=== PATIENT | male | born 1950 | race Caucasian/White ===

== ENCOUNTER 2016-12-31 11:18 | Inpatient (IN) | payer MEDICARE, OTHER ==
[~2016-12-31] VITALS: Ht 175.3 cm; Wt 116.5 kg
[2016-12-31] VITALS (11 sets, daily range): BP systolic 88–190; BP diastolic 52–77; PULSE 98–132; RESP 20–30; TEMP 98.5–100.6; O2SAT 63–99
[~2016-12-31 11:18] MED LIST: ABIL2TAB2 PO; AMLO2.5T PO; BUDE.5I NEB; CEFT500T3 PO; COLA100C3 PO; FURO1TAB62 PO; LEVO50TA4 PO; MAPA325T PO; SIME1CHW11 PO; SPIRCAP INH; VENTAER INH; VITA1000 PO; ZANT150T2 PO
--- NOTE | 2016-12-31 11:42 | PD ---
HPI Chief Complaint: Altered Mental Status Time Seen by Provider: 11:36 Travel History International Travel<30 days: No Contact w/Intl Traveler<30days: No Traveled to known affect area: No History of Present Illness HPI Patient was sent from [facility] with reported some altered over the last 3 days per EMS. Patient has a history of pneumonia, COPD, hyperkalemia, GERD, edema, schizoaffective disorder, legally blind, hypertension, hypothyroidism, depression, coronary artery disease, sleep apnea, colostomy, constipation, vitamin D deficiency, TB, Parkinson's, and dementia. Patient denies any complaints or concerns. States that the senior care sent him here for evaluation. Patient denies any chest pain, shortness of breath, nausea, vomiting, abdominal pain, back pain, headache, or numbness or tingling anywhere. Patient states that he has been coughing daily and does this regularly and is not anything out of the ordinary for him. Patient states he just sat out in the hot sun for too long. PFSH Past Medical History Anxiety: Yes Depression: Yes Cardiovascular Problems: Yes (bp) COPD: Yes Developmental Delay: Yes (MENTALLY CHALLENGED) Diminished Hearing: No GERD: Yes Hypertension: Yes Implanted Vascular Access Dvce: Yes Neurologic: Yes (DEVELOPMENTALLY DELAYED) Respiratory: No Seizures: Yes Thyroid Disease: Yes Past Surgical History Eye Surgery: Yes Other Surgery: Yes Social History Alcohol Use: No Tobacco Use: No Substance Use: No Allergies-Medications (Allergen,Severity, Reaction): Coded Allergies: No Known Allergies (Verified , 12/31/16) Reported Meds & Prescriptions Reported Meds & Active Scripts Active Reported Tums (Calcium Carbonate (Antacid)) 500 Mg Chew 1,000 Mg CHEW BID WITH MEALS Docusate Sodium 100 Mg Cap 100 Mg PO HS Furosemide 20 Mg Tab 20 Mg PO BID Ondansetron (Ondansetron HCl) 4 Mg Tab 4 Mg PO Q6HR PRN Vitamin D-1000 (Cholecalciferol) 1,000 Unit Tab 1,000 Units PO DAILY Ventolin Hfa 18 GM Inh (Albuterol Sulfate) 90 Mcg/Act Aer 2 Puff INH Q4H PRN Mapap (Acetaminophen) 325 Mg Tab 650 Mg PO Q4HR PRN Levothyroxine (Levothyroxine Sodium) 50 Mcg Tab 50 Mcg PO DAILY Gas Relief Maximum Streng (Simethicone) 125 Mg Chw 125 Mg PO Q8HR PRN Amlodipine (Amlodipine Besylate) 2.5 Mg Tab 2.5 Mg PO DAILY Abilify (Aripiprazole) 2 Mg Tab 2 Mg PO HS Review of Systems Except as stated in HPI: all other systems reviewed are Neg Physical Exam Narrative GENERAL: Well-developed, overly nourished, in no acute distress, and non-ill appearing. SKIN: Focused skin assessment warm and dry. HEAD: Atraumatic. Normocephalic. ENT: No nasal bleeding or discharge. Mucous membranes pink and moist. NECK: Trachea midline. Supple. No nuclear rigidity. CARDIOVASCULAR: Regular rate and rhythm. No murmur appreciated. RESPIRATORY: No accessory muscle use. No respiratory distress. Decreased breath sounds throughout. GASTROINTESTINAL: Abdomen soft, non-tender, nondistended. Colostomy bag noted. Abdominal hernia noted. No pulsatile mass. MUSCULOSKELETAL: No obvious deformities. No clubbing. No cyanosis. Trace edema bilateral lower extremities. Full range of motion bilateral upper extremities. NEUROLOGICAL: Awake and alert. No obvious cranial nerve deficits. Motor grossly within normal limits. Normal speech. PSYCHIATRIC: Appropriate mood and affect; insight and judgment normal. Data Data Last Documented VS Vital Signs Date Time Temp Pulse Resp B/P Pulse Ox O2 Delivery O2 Flow Rate FiO2 12/31/16 11:25 123 22 94 Nasal Cannula 3 12/31/16 11:23 99.4 140/72 Orders Electrocardiogram (12/31/16 11:32) Basic Metabolic Panel (Bmp) (12/31/16 11:32) Complete Blood Count With Diff (12/31/16 11:32) Lactic Acid Sepsis Protocol (12/31/16 11:32) Urinalysis - C+S If Indicated (12/31/16 11:32) Blood Culture (12/31/16 11:32) Chest, Single Ap (12/31/16 11:32) Sodium Chloride 0.9% Flush (Ns Flush) (12/31/16 11:45) Ceftriaxone Inj (Rocephin Inj) (12/31/16 11:45) Azithromycin Inj (Zithromax Inj) (12/31/16 11:45) B-Type Natriuretic Peptide (12/31/16 11:32) Urine Culture (12/31/16 11:47) Sodium Chlorid 0.9% 500 Ml Inj (Ns 500 M (12/31/16 13:00) Admit Order (Ed Use Only) (12/31/16 13:21) Labs Laboratory Tests Test 12/31/16 12/31/16 11:45 11:47 White Blood Count 49.4 TH/MM3 Red Blood Count 4.77 MIL/MM3 Hemoglobin 15.1 GM/DL Hematocrit 46.3 % Mean Corpuscular Volume 97.0 FL Mean Corpuscular Hemoglobin 31.7 PG Mean Corpuscular Hemoglobin 32.6 % Concent Red Cell Distribution Width 18.0 % Platelet Count 243 TH/MM3 Mean Platelet Volume 9.6 FL Neutrophils (%) (Auto) 89.4 % Lymphocytes (%) (Auto) 2.3 % Monocytes (%) (Auto) 8.0 % Eosinophils (%) (Auto) 0.1 % Basophils (%) (Auto) 0.2 % Neutrophils # (Auto) 44.2 TH/MM3 Lymphocytes # (Auto) 1.1 TH/MM3 Monocytes # (Auto) 3.9 TH/MM3 Eosinophils # (Auto) 0.0 TH/MM3 Basophils # (Auto) 0.1 TH/MM3 CBC Comment AUTO DIFF Differential Total Cells 100 Counted Neutrophils % (Manual) 83 % Band Neutrophils % 6 % Lymphocytes % 2 % Monocytes % 9 % Neutrophils # (Manual) 44.0 TH/MM3 Nucleated Red Blood Cells 1 /100 WBC Differential Comment FINAL DIFF MANUAL Platelet Estimate NORMAL Platelet Morphology Comment NORMAL Red Cell Morphology Comment NORMAL Sodium Level 136 MEQ/L Potassium Level 4.2 MEQ/L Chloride Level 96 MEQ/L Carbon Dioxide Level 36.3 MEQ/L Anion Gap 4 MEQ/L Blood Urea Nitrogen 16 MG/DL Creatinine 1.39 MG/DL Estimat Glomerular Filtration 51 ML/MIN Rate Random Glucose 213 MG/DL Lactic Acid Level 1.3 mmol/L Calcium Level 8.8 MG/DL B-Type Natriuretic Peptide 50 PG/ML Urine Color YELLOW Urine Turbidity HAZY Urine pH 6.0 Urine Specific [place] 1.025 Urine Protein 300 mg/dL Urine Glucose (UA) 70 mg/dL Urine Ketones NEG mg/dL Urine Occult Blood MOD Urine Nitrite NEG Urine Bilirubin NEG Urine Urobilinogen LESS THAN 2.0 MG/DL Urine Leukocyte Esterase LARGE Urine RBC 22 /hpf Urine WBC 150 /hpf Urine Squamous Epithelial <1 /hpf Cells Urine Transitional Epithelial 1 /hpf Cells Urine Bacteria MANY /hpf Urine Hyaline Casts 4 /lpf Urine Mucus FEW /lpf Microscopic Urinalysis Comment CATH-CULTURE IND MDM Medical Decision Making Medical Screen Exam Complete: Yes Emergency Medical Condition: Yes Interpretation(s) Chest x-ray read by radiologist shows: Left lateral base mild atelectasis or consolidation. EKG reviewed by Dr. Aponte shows sinus tachycardia with ventricular rate of 116. No STEMI. Differential Diagnosis Pneumonia, UTI, anemia, electrolyte abnormality, sepsis, service, other Narrative Course 1225 patient reassessed states he is feeling a little better after receiving treatment here. Patient was seen and examined. Initial laboratory and radiology studies were obtained and reviewed. Patient is given IV fluids, IV antibiotics and reports feeling improved. Discussed patient with Dr. Aponte, who saw and evaluated the patient and is in agreement with plan of care and disposition. Discussed all findings and plan of care with patient who is agreeable for admission. All questions were answered. Patient remained stable throughout ED course. Sepsis Criteria SIRS Criteria (2 or more): Heart rate over 90, WBC > 77508, < 4000 or > 10% bands Sepsis Criteria (SIRS+source): Infect source susp/known Criteria Outcome: Meets sepsis criteria Physician Communication Physician Communication [id number] Doe, resident central communications specialist for Dr. Casanova, who is agreeable to admit the patient. Diagnosis Primary Impression: Sepsis Qualified Code: A41.9 - Sepsis, due to unspecified organism Additional Impressions: Pneumonia Qualified Code: J18.1 - Pneumonia of left lower lobe due to infectious organism UTI (urinary tract infection) Qualified Code: N39.0 - Urinary tract infection without hematuria, site unspecified Admitting Information Admitting Physician Requests: Admit Condition: Stable Luciano Chong December 31, 2016 11:42
[2016-12-31] MEDS ORDERED: SODIUM CHLORIDE 0.9% FLUSH 10 ML FLUSH IVF PRN (11:45)
[2016-12-31] MEDS ORDERED: cefTRIAXone INJ 1,000 MG in SODIUM CHLORIDE 0.9% INJ 100 ML IV ONE (11:45)
[2016-12-31] MEDS ORDERED: AZITHROMYCIN INJ 500 MG in SODIUM CHLOR 0.9% 250 ML INJ 250 ML IV ONE (11:45)
[2016-12-31 12:10] LABS: AUTOMATED NEUTROPHIL # 44.2 TH/MM3 (1.8-7.7); BASOPHIL # 0.1 TH/MM3 (0-0.2); BASOPHIL % 0.2 % (0.0-2.0); EOSINOPHIL % 0.1 % (0.0-4.0); HEMATOCRIT 46.3 % (39.0-51.0); LYMPH % 2.3 % (9.0-44.0); LYMPHOCYTE # 1.1 TH/MM3 (1.0-4.8); MEAN CORPUSCULAR HEMOGLOBIN 31.7 PG (27.0-34.0); MEAN CORPUSCULAR HGB CONC 32.6 % (32.0-36.0); NEUT % 89.4 % (16.0-70.0); PLATELET COUNT 243 TH/MM3 (150-450); RED BLOOD COUNT 4.77 MIL/MM3 (4.50-5.90); WHITE BLOOD COUNT 49.4 TH/MM3 (4.0-11.0)
[2016-12-31 12:14] LABS: HEMO FLAGS AUTO DIFF
[2016-12-31 12:18] LABS: BACTERIA, URINE MANY /hpf; BLOOD, URINE MOD (NEG); GLUCOSE,URINE 70 mg/dL (NEG); HYALINE CAST, URINE 4 /lpf (RARE); KETONE, URINE NEG (NEG); MUCUS URINE FEW /lpf (OCC); NITRITE,URINE NEG (NEG); SQUAMOUS EPITHELIAL CELL URINE <1 /hpf (0-5); TRANSITIONAL EPI CELLS, URINE 1 /hpf; URINE COLOR YELLOW (YELLW/STRAW)
[2016-12-31 12:20] LABS: COMMENT (UR) CATH-CULTURE IND; CULTURE IF INDICATED CATH CULTURE IND
[2016-12-31 12:27] LABS: BICARBONATE 36.3 MEQ/L (21.0-32.0); POTASSIUM 4.2 MEQ/L (3.5-5.1)
--- NOTE | 2016-12-31 12:36 | RADRPT ---
EXAM DATE/TIME: 12/31/2016 11:44 [facility] COMPARISON: CHEST SINGLE AP, June 03, 2016, 15:08. INDICATIONS : Cough. MEDICAL HISTORY : Hypertension. SURGICAL HISTORY : None. ENCOUNTER: Initial ACUITY: 1 day PAIN SCORE: Non-responsive. LOCATION: Bilateral chest FINDINGS: The heart size is within normal limits for an AP portable film. There is mild increased density at th e left lateral base. The right lung is clear. CONCLUSION: Left lateral base mild atelectasis or consolidation. Esteban Fleming MD on December 31, 2016 at 12:34 Board Certified Radiologist. This report was verified electronically.
[2016-12-31 12:49] LABS: BANDS 6 % (0-6); CORRECTED NUCLEATED RBC 1 /100 WBC (0-0); PLATELET ESTIMATE SMEAR NORMAL (NORMAL); PLATELET MORPHOLOGY NORMAL (NORMAL); POLYS (SEG NEUTROPHILS) 83 % (16-70); SCAN/DIFF FINAL DIFF MANUAL; WBC DIFF SAMPLE 100
[2016-12-31] MEDS ORDERED: ONDA1TAB16 PO (12:55)
[2016-12-31] MEDS ORDERED: FURO20TA PO (12:55)
[2016-12-31] MEDS ORDERED: DOCU100C PO (12:58)
[2016-12-31] MEDS ORDERED: SODIUM CHLORID 0.9% 500 ML INJ 500 ML IV ONE (13:00)
[2016-12-31] MEDS ORDERED: TUMS500C CHEW (13:02)
--- NOTE | 2016-12-31 13:24 | PD ---
Physical Exam Narrative I, Dr. Aponte, have reviewed the advance practice practitioner's documentation and am in agreement, met with the patient face to face, made the diagnosis, and the medical decision making was done by me. *My assessment and Findings: Pneumonia vs. dehydration vs. electrolyte abnormality 66yo M with multiple PMH here for AMS from correction. Pt is AAOx3, blind but follows commands. Pt is complaining of cough and is tachycardic. Labs reviewed, marked leukocytosis at 49.4 compared to 17.6 on 06/2016. Lactic acid 1.3. BNP 50. Creatinine mildly increased from baseline. Glucose elevated at 213. UA showed large leukocyte WBC 150. CXR showed left lateral base mild atelectasis or consolidation. Pt given NS IVF, ceftriaxone and azithromycin. This will cover CAP and UTI. Pt admitted to resident service. Data Data Last Documented VS Vital Signs Date Time Temp Pulse Resp B/P Pulse Ox O2 Delivery O2 Flow Rate FiO2 12/31/16 11:25 123 22 94 Nasal Cannula 3 12/31/16 11:23 99.4 140/72 Orders Electrocardiogram (12/31/16 11:32) Basic Metabolic Panel (Bmp) (12/31/16 11:32) Complete Blood Count With Diff (12/31/16 11:32) Lactic Acid Sepsis Protocol (12/31/16 11:32) Urinalysis - C+S If Indicated (12/31/16 11:32) Blood Culture (12/31/16 11:32) Chest, Single Ap (12/31/16 11:32) Sodium Chloride 0.9% Flush (Ns Flush) (12/31/16 11:45) Ceftriaxone Inj (Rocephin Inj) (12/31/16 11:45) Azithromycin Inj (Zithromax Inj) (12/31/16 11:45) B-Type Natriuretic Peptide (12/31/16 11:32) Urine Culture (12/31/16 11:47) Sodium Chlorid 0.9% 500 Ml Inj (Ns 500 M (12/31/16 13:00) Admit Order (Ed Use Only) (12/31/16 13:21) Labs Laboratory Tests Test 12/31/16 12/31/16 11:45 11:47 White Blood Count 49.4 TH/MM3 Red Blood Count 4.77 MIL/MM3 Hemoglobin 15.1 GM/DL Hematocrit 46.3 % Mean Corpuscular Volume 97.0 FL Mean Corpuscular Hemoglobin 31.7 PG Mean Corpuscular Hemoglobin 32.6 % Concent Red Cell Distribution Width 18.0 % Platelet Count 243 TH/MM3 Mean Platelet Volume 9.6 FL Neutrophils (%) (Auto) 89.4 % Lymphocytes (%) (Auto) 2.3 % Monocytes (%) (Auto) 8.0 % Eosinophils (%) (Auto) 0.1 % Basophils (%) (Auto) 0.2 % Neutrophils # (Auto) 44.2 TH/MM3 Lymphocytes # (Auto) 1.1 TH/MM3 Monocytes # (Auto) 3.9 TH/MM3 Eosinophils # (Auto) 0.0 TH/MM3 Basophils # (Auto) 0.1 TH/MM3 CBC Comment AUTO DIFF Differential Total Cells 100 Counted Neutrophils % (Manual) 83 % Band Neutrophils % 6 % Lymphocytes % 2 % Monocytes % 9 % Neutrophils # (Manual) 44.0 TH/MM3 Nucleated Red Blood Cells 1 /100 WBC Differential Comment FINAL DIFF MANUAL Platelet Estimate NORMAL Platelet Morphology Comment NORMAL Red Cell Morphology Comment NORMAL Sodium Level 136 MEQ/L Potassium Level 4.2 MEQ/L Chloride Level 96 MEQ/L Carbon Dioxide Level 36.3 MEQ/L Anion Gap 4 MEQ/L Blood Urea Nitrogen 16 MG/DL Creatinine 1.39 MG/DL Estimat Glomerular Filtration 51 ML/MIN Rate Random Glucose 213 MG/DL Lactic Acid Level 1.3 mmol/L Calcium Level 8.8 MG/DL B-Type Natriuretic Peptide 50 PG/ML Urine Color YELLOW Urine Turbidity HAZY Urine pH 6.0 Urine Specific [place] 1.025 Urine Protein 300 mg/dL Urine Glucose (UA) 70 mg/dL Urine Ketones NEG mg/dL Urine Occult Blood MOD Urine Nitrite NEG Urine Bilirubin NEG Urine Urobilinogen LESS THAN 2.0 MG/DL Urine Leukocyte Esterase LARGE Urine RBC 22 /hpf Urine WBC 150 /hpf Urine Squamous Epithelial <1 /hpf Cells Urine Transitional Epithelial 1 /hpf Cells Urine Bacteria MANY /hpf Urine Hyaline Casts 4 /lpf Urine Mucus FEW /lpf Microscopic Urinalysis Comment CATH-CULTURE IND MDM Supervised Visit with [place]: Yes Interpretation(s) EKG: Sinus tachycardia at 116bpm. No ST segment elevation or depression. Critical Care Narrative Aggregate critical care time was 35 minutes. Time to perform other separately billable procedures was not included in the critical care time. My time did not include minutes spent treating any other patients simultaneously or on activities that did not directly contribute to the patient's treatment. The services I provided to this patient were to treat and/or prevent clinically significant deterioration that could result in: cardiovascular collapse or . I provided critical care services requiring my management, as noted below: Chart data review, documentation time, medication orders and management, vital sign assessments/reviewing monitor data, ordering and reviewing lab tests, ordering and interpreting/reviewing x-rays and diagnostic studies, care of the patient and discussion of the patient with the admitting physicians. Diagnosis Primary Impression: Sepsis Qualified Code: A41.9 - Sepsis, due to unspecified organism Admitting Information Admitting Physician Requests: Jennifer Jimenez DO December 31, 2016 13:24
--- NOTE | 2016-12-31 13:31 | HHI.HP ---
HPI Service Family Medicine Primary Care Physician Unknown Admission Diagnosis sepsis, pneumonia, UTI Diagnoses: International Travel<30 Days: No Contact w/Intl Traveler<30days: No Known Affected Area: No History of Present Illness Patient is a 66-year-old male with a past medical history significant for pneumonia, COPD, hyperkalemia, GERD, edema, schizoaffective disorder, legally blind, hypertension, hypothyroidism, depression, coronary artery disease , sleep apnea, colostomy, constipation, vitamin D deficiency, TB, Parkinson's, and dementia that presents to the [facility] from his [facility] with a chief complaint of altered mental status times the last 3 days. She and states that he has not been feeling well for the last 5 days, he has felt dizzy, lightheaded , with nausea and vomiting. (Elvie Doe MD R1) Review of Systems Constitutional: COMPLAINS OF: Fever, Chills, Dizziness, Change in appetite, Night Sweats Ears, nose, mouth, throat: COMPLAINS OF: Nasal discharge, Running Nose, Sinus Pain Respiratory: COMPLAINS OF: Cough (non-productive), DENIES: Sputum production, Shortness of breath Cardiovascular: COMPLAINS OF: Palpitations, DENIES: Chest pain Gastrointestinal: COMPLAINS OF: Abdominal pain, DENIES: Diarrhea, Nausea, Vomiting Genitourinary: DENIES: Urinary frequency (less frequent), Dysuria Musculoskeletal: DENIES: Muscle aches, Back pain Integumentary: DENIES: Pruritus, Rash Neurologic: DENIES: Headache, Paresthesias (Elvie Doe MD R1) Past Family Social History Past Medical History COPD, hyperkalemia, GERD, edema, schizoaffective disorder, legally blind, hypertension, hypothyroidism, depression, coronary artery disease, sleep apnea, colostomy, constipation, vitamin D deficiency, TB, Parkinson's, and dementia. Past Surgical History Bilateral eye surgery Colostomy Reported Medications Reported Meds & Active Scripts Active Reported Tums (Calcium Carbonate (Antacid)) 500 Mg Chew 1,000 Mg CHEW BID WITH MEALS Docusate Sodium 100 Mg Cap 100 Mg PO HS Furosemide 20 Mg Tab 20 Mg PO BID Ondansetron (Ondansetron HCl) 4 Mg Tab 4 Mg PO Q6HR PRN Vitamin D-1000 (Cholecalciferol) 1,000 Unit Tab 1,000 Units PO DAILY Ventolin Hfa 18 GM Inh (Albuterol Sulfate) 90 Mcg/Act Aer 2 Puff INH Q4H PRN Mapap (Acetaminophen) 325 Mg Tab 650 Mg PO Q4HR PRN Levothyroxine (Levothyroxine Sodium) 50 Mcg Tab 50 Mcg PO DAILY Gas Relief Maximum Streng (Simethicone) 125 Mg Chw 125 Mg PO Q8HR PRN Amlodipine (Amlodipine Besylate) 2.5 Mg Tab 2.5 Mg PO DAILY Abilify (Aripiprazole) 2 Mg Tab 2 Mg PO HS (Eko,Elvie Ramirez MD R1) Allergies: Coded Allergies: No Known Allergies (Verified , 12/31/16) Family History Noncontributory Social History Denies smoking, alcohol, drug use including marijuana use (Eko,Elvie Ramirez MD R1) Physical Exam Vital Signs Vital Signs Date Time Temp Pulse Resp B/P Pulse Ox O2 Delivery O2 Flow Rate FiO2 12/31/16 11:25 123 22 94 Nasal Cannula 3 12/31/16 11:23 99.4 132 22 140/72 93 Physical Exam GENERAL: This is a well-developed patient, obese patient, in no acute respiratory distress but appears tired, legally blind SKIN: No rashes, ecchymoses or lesions. Cool and dry. HEAD: Atraumatic. Normocephalic. No temporal or scalp tenderness. EYES: Pupils equal round and reactive. Extraocular motions intact. No scleral icterus. No injection or drainage. Legally blind, eye glasses in place ENT: Nose without bleeding, purulent drainage or septal hematoma. Throat without erythema, tonsillar hypertrophy or exudate. Dry mucous membranes. Uvula midline. Airway patent. NECK: Trachea midline. No JVD or lymphadenopathy. Supple, nontender, no meningeal signs. CARDIOVASCULAR: Tachycardic rate and rhythm without murmurs, gallops, or rubs. RESPIRATORY: Difficult to auscultate, but no wheezing or crackles identified GASTROINTESTINAL: Abdomen obese, soft, non-tender, nondistended. No hepato- splenomegaly, or palpable masses. No guarding. MUSCULOSKELETAL: Extremities without clubbing, cyanosis, or edema. 1+ pitting edema of bilateral lower extremities. No calf tenderness. NEUROLOGICAL: Awake and alert during exam, but drifts off to sleep intermittently. Motor and sensory grossly within normal limits. Patient unable to lift upper or lower extremities. Speech is difficult to understand. Laboratory Laboratory Tests Test 12/31/16 12/31/16 11:45 11:47 White Blood Count 49.4 Red Blood Count 4.77 Hemoglobin 15.1 Hematocrit 46.3 Mean Corpuscular Volume 97.0 Mean Corpuscular Hemoglobin 31.7 Mean Corpuscular Hemoglobin 32.6 Concent Red Cell Distribution Width 18.0 Platelet Count 243 Mean Platelet Volume 9.6 Neutrophils (%) (Auto) 89.4 Lymphocytes (%) (Auto) 2.3 Monocytes (%) (Auto) 8.0 Eosinophils (%) (Auto) 0.1 Basophils (%) (Auto) 0.2 Neutrophils # (Auto) 44.2 Lymphocytes # (Auto) 1.1 Monocytes # (Auto) 3.9 Eosinophils # (Auto) 0.0 Basophils # (Auto) 0.1 CBC Comment AUTO DIFF Differential Total Cells 100 Counted Neutrophils % (Manual) 83 Band Neutrophils % 6 Lymphocytes % 2 Monocytes % 9 Neutrophils # (Manual) 44.0 Nucleated Red Blood Cells 1 Differential Comment FINAL DIFF MANUAL Platelet Estimate NORMAL Platelet Morphology Comment NORMAL Red Cell Morphology Comment NORMAL Sodium Level 136 Potassium Level 4.2 Chloride Level 96 Carbon Dioxide Level 36.3 Anion Gap 4 Blood Urea Nitrogen 16 Creatinine 1.39 Estimat Glomerular Filtration 51 Rate Random Glucose 213 Lactic Acid Level 1.3 Calcium Level 8.8 B-Type Natriuretic Peptide 50 Urine Color YELLOW Urine Turbidity HAZY Urine pH 6.0 Urine Specific [place] 1.025 Urine Protein 300 Urine Glucose (UA) 70 Urine Ketones NEG Urine Occult Blood MOD Urine Nitrite NEG Urine Bilirubin NEG Urine Urobilinogen LESS THAN 2.0 Urine Leukocyte Esterase LARGE Urine RBC 22 Urine WBC 150 Urine Squamous Epithelial <1 Cells Urine Transitional Epithelial 1 Cells Urine Bacteria MANY Urine Hyaline Casts 4 Urine Mucus FEW Microscopic Urinalysis Comment CATH-CULTURE IND Date/Time Procedure Status Source Growth 12/31/16 11:50 Aerobic Blood Culture Received Blood Peripheral Pending 12/31/16 11:50 Anaerobic Blood Culture Received Blood Peripheral Pending 12/31/16 11:47 Urine Culture Received Urine Catheterized Urine Pending (EkoElvie MD R1) Result Diagram: 12/31/16 1145 12/31/16 1145 Imaging Last Impressions Chest X-Ray 12/31/16 1132 Signed Impressions: Service Date/Time: Saturday, December 31, 2016 11:44 - CONCLUSION: Left lateral base mild atelectasis or consolidation. Esteban Fleming MD (Elvie Doe MD R1) Assessment and Plan Assessment and Plan 66-year-old male with multiple medical problems presents with altered mental status with signs and symptoms concerning for severe sepsis secondary to pneumonia and UTI. Patient will be admitted for treatment with IV antibiotics and fluids. Code Status Full code Discussed Condition With Discussed with Dr. Zamarripa, PGY 3 (Elvie Doe MD R1) Attending Attestation THIS CASE WAS DISCUSSED WITH THE RESIDENT PHYSICIANS. I HAVE REVIEWED THE RECORD AND AGREE WITH THE ABOVE NOTE AND PLAN OF CARE WAS DISCUSSED. I HAVE AUTHORIZED THE ORDER FOR ADMISSION TO AN IN-PATIENT STATUS. (Brody Casanova MD) Problem List: (1) Severe sepsis Status: Acute Plan: Initial vitals: Temperature 99.4F, pulse 132, BP 140/72, RR 22, 93% saturation Temperature increased to 100.6F Patient met severe sepsis criteria with elevated temperature, elevated respiratory rate and WBC of 49.4 Received 500 mL bolus in the ED, Rocephin 1 g IV, azithromycin 500 mg IV Patient later received 1000 mL bolus in the ED for blood pressure of 88/52 with good response UA significant for large leukocyte esterase, 22 RBC, 150 WBC, many bacteria in catheterized specimen - will order renal ultrasound CXR notable for left lateral base mild atelectasis or consolidation EKG showed sinus tachycardia with rates of 116. No overt signs of ACS by my interpretation Troponin ordered 1 was less than 0.02, CK 40, BNP 15 Urine culture pending Blood cultures pending Sputum Gram stain and culture pending Legionella urinary antigen pending Pneumococcal urinary antigen pending 2-D echo pending Zosyn 3.375 IV every 6 hours Levaquin 750 mg IV every 24 hours Vancomycin 1750 mg IV every 24 hours Solu-Medrol 40 mg IV every 12 hours DuoNeb every 6 hours scheduled Albuterol nebulizer every 2 hours when necessary shortness of breath Zofran 4 mg IV every 6 hours Tylenol 650 mg by mouth every 4 hours when necessary temperature greater than 101F NS @ 100 mls/hr IV, lower than maintenance due to concern for heart failure (2) UTI (urinary tract infection) Status: Acute Plan: See plan above for severe sepsis (3) Pneumonia Status: Acute Plan: See plan above for severe sepsis (4) DANE (acute kidney injury) Status: Acute Plan: -Creatinine elevated at 1.39 in the ED -Baseline of 1.08 in 2016 -Continue normal saline at 100 mLs per hour -Will monitor in the a.m. (5) Chronic Medical Problems Status: Chronic Plan: COPD: Hold albuterol inhaler, continue albuterol and DuoNeb nebulizers Hypertension: Hold amlodipine 2.5 mg by mouth daily due to low/normotensive blood pressures Hyperlipidemia: Continue Atorvastin, Pravastatin Hypothyroidism: Continue Levothyroxine 50 g by mouth daily Schizoaffective disorder: Hold Abilify 2 mg daily Edema: Hold furosemide 20 mg by mouth twice a day due to low/normotensive blood pressures (6) FEN/DVT PPX/GI PPX/Nursing Orders Status: Acute Plan: Fluids: NS @ 100 mls/hr IV Electrolytes: Will monitor and replace as needed Nutrition: NPO due to altered mental status DVT Prophylaxis:Heparin subcutaneous Q8h, bilateral SCDs GI Prophylaxis: Protonix 40mg IV daily -Vitals Q4h -Monitor I's and O's -Fall precautions -Neurochecks -cardiac monitor with telemetry with continuous vital signs -Supplemental oxygen -Activity bed rest Disposition: Uncertain at this time. Pending clinical improvement (Elvie Doe MD R1) Physician Certification 2 Midnight Certification Type: Admission for Inpatient Services Order for Inpatient Services The services are ordered in accordance with Medicare regulations or non- Medicare payer requirements, as applicable. In the case of services not specified as inpatient-only, they are appropriately provided as inpatient services in accordance with the 2-midnight benchmark. Estimated LOS (days): 5 days is the estimated time the patient will need to remain in the hospital, assuming treatment plan goals are met and no additional complications. Post-Hospital Plan: SNF (Elvie Doe MD R1) Problem Qualifiers (1) UTI (urinary tract infection): Qualified Code: N39.0 - Urinary tract infection without hematuria, site unspecified (2) Pneumonia: Qualified Code: J18.1 - Pneumonia of left lower lobe due to infectious organism Elvie Doe MD R1 December 31, 2016 13:31 Brody Casanova MD January 01, 2017 11:17
[2016-12-31] MEDS: SODIUM CHLORIDE 0.9% FLUSH 10 ML FLUSH IV FLUSH SCH ×2 (14:00→22:37)
[2016-12-31] MEDS ORDERED: SODIUM CHLORIDE 0.9% FLUSH 10 ML FLUSH IV FLUSH PRN (14:00)
[2016-12-31] MEDS: SODIUM CHLOR 0.9% 1000 ML INJ 1,000 ML IV SCH (14:17)
[2016-12-31] MEDS ORDERED: SODIUM CHLOR 0.9% 1000 ML INJ 1,000 ML IV ONE (15:00)
[2016-12-31] MEDS ORDERED: Vancomycin Consult Pharmacy 1 EA OTHER SCH (15:00)
[2016-12-31] MEDS ORDERED: HEPARIN SODIUM - SQ 10,000 UNITS/ML VIAL SQ SCH (15:15)
[2016-12-31] MEDS ORDERED: ACETAMINOPHEN 325 MG TAB PO PRN (15:30)
[2016-12-31] MEDS ORDERED: guaiFENesin/DEXTROMETHORPHAN 200 MG/20 MG/10 ML CUP PO PRN (15:30)
[2016-12-31] MEDS ORDERED: ONDANSETRON HCL 4 MG/2 ML VIAL IV PRN (15:30)
[2016-12-31] MEDS ORDERED: VANCOMYCIN INJ 1,000 MG in SODIUM CHLOR 0.9% 250 ML INJ 250 ML IV ONE (16:00)
[2016-12-31] MEDS ORDERED: VANCOMYCIN 1,000 MG/NS 250 ML IV SCH ×2 (16:00)
[2016-12-31] MEDS: RESP: ALBUTEROL 2.5 MG/IPRATROPIUM 0.5 MG NEB (SCH) INH ×2 (16:19→21:21)
[2016-12-31] MEDS: methylPREDNISolone SOD SUCC 40 MG/1 ML VIAL IV SCH (18:05)
[2016-12-31] MEDS: VANCOMYCIN INJ 1,750 MG in SODIUM CHLORID 0.9% 500 ML INJ 500 ML IV SCH (18:06)
[2016-12-31 18:35] LABS: BLOOD GAS BASE EXCESS 4.6 mmol/L (-2-2); BLOOD GAS CARBOXYHEMOGLOBIN 2.6 % (0-4); BLOOD GAS HCO3 31 mmol/L (22-26); BLOOD GAS METHEMOGLOBIN 0.4 % (0-2); BLOOD GAS O2 HGB SATURATION 93 % (90-100); BLOOD GAS OXYGEN CONTENT 18.7 Vol % (12.0-20.0); BLOOD GAS PCO2 74 mmHg (38-42); BLOOD GAS PO2 78 mmHg (61-120); BLOOD GAS TOTAL HGB 14.3 G/DL (12.0-16.0); TEMP CORR TO 98.6
[2016-12-31 18:37] LABS: CRITICAL VALUE YES; DRAW SITE LT RADIAL; FIO2 40 %; NUMBER OF ARTERIAL PUNCTURES 1; OXYGEN DEVICE BIPAP; STAT YES; ULNAR PULSE PRESENT; VENT SETTINGS 5PEEP/7PSV
--- NOTE | 2016-12-31 18:37 | HHI.PR ---
Addendum to Inpatient Note Addendum Reason: Additional Documentation Additional Information Residents were paged about patient's O2 saturation down to 85% on the medicine floor on oxygen 2L by NC. Patient uses BiPAP at night for COPD/obstructive sleep apnea so the zoology technical officer started him on BiPAP. ABG was ordered that showed pH of 7.25, PCO2 of 74 - concern for hypercapnic respiratory failure At this time, the patient was not responding to commands. Floor Waxer was consulted to assist with management. Plan is to transfer patient to the ICU once a bed is available. Elvie Doe MD R1 December 31, 2016 18:37
--- NOTE | 2016-12-31 20:04 | PD.CONS ---
HPI Service Critical Care Medicine Consult Requested By Primary Care Physician Unknown History of Present Illness 66-year-old morbidly obese male with a past medical history significant for recurrent pneumonia, COPD, hyperkalemia, GERD, edema, schizoaffective disorder, legally blind, hypertension, hypothyroidism, depression, coronary artery disease, obstructive sleep apnea, colostomy, constipation, vitamin D deficiency, TB, Parkinson's, and dementia that presents to the [facility] his [facility] with a chief complaint of altered mental status times 4 the last 3 days. Per medical record he has not been feeling well for the last 5 days, he has felt dizzy, lightheaded, with nausea and vomiting. Review of Systems ROS Unable to obtain patient on face mask BiPAP very lethargic Past Family Social History Allergies: Coded Allergies: No Known Allergies (Verified , 12/31/16) Past Medical History COPD, Chronic hyperkalemia, GERD, Chronic edema, Schizoaffective disorder, Legally blind Hypertension Hypothyroidism Depressions coronary artery disease Obstructive sleep apnea Constipation Vitamin D deficiency Parkinson's disease Dementia Past Surgical History Bilateral eye surgery Colostomy Reported Medications Reported Meds & Active Scripts Active Reported Tums (Calcium Carbonate (Antacid)) 500 Mg Chew 1,000 Mg CHEW BID WITH MEALS Docusate Sodium 100 Mg Cap 100 Mg PO HS Furosemide 20 Mg Tab 20 Mg PO BID Ondansetron (Ondansetron HCl) 4 Mg Tab 4 Mg PO Q6HR PRN Vitamin D-1000 (Cholecalciferol) 1,000 Unit Tab 1,000 Units PO DAILY Mapap (Acetaminophen) 325 Mg Tab 650 Mg PO Q4HR PRN Levothyroxine (Levothyroxine Sodium) 50 Mcg Tab 50 Mcg PO DAILY Gas Relief Maximum Streng (Simethicone) 125 Mg Chw 125 Mg PO Q8HR PRN Amlodipine (Amlodipine Besylate) 2.5 Mg Tab 2.5 Mg PO DAILY Abilify (Aripiprazole) 2 Mg Tab 2 Mg PO HS Active Ordered Medications Current Medications Medications (Trade) Dose Ordered Sig/Fang Route PRN Reason Start Time Stop Time Status Last Admin Dose Admin Sodium Chloride (NS 1000 ml Inj) 1,000 ml @ 100 mls/hr Q10H IV 12/31/16 14:00 12/31/16 14:17 Sodium Chloride (NS Flush) 2 ml UNSCH PRN IV FLUSH FLUSH AFTER USING IV ACCESS 12/31/16 14:00 Sodium Chloride 2 ml 2 ml BID IV FLUSH 12/31/16 14:00 Pharmacy Profile Note 0 ml @ 0 mls/hr UNSCH OTHER 12/31/16 15:00 Piperacillin Sod/ Tazobactam Sod 50 ml @ 100 mls/hr Q6H IV 01/01/17 00:00 Levofloxacin/ Dextrose (Levaquin 750 Mg Premix Inj) 150 ml @ 100 mls/hr Q24H IV 01/01/17 12:00 Methylprednisolone Sodium Succinate (SoluMEDROL INJ) 40 mg Q12H IV 12/31/16 15:30 12/31/16 18:05 Acetaminophen (Tylenol) 650 mg Q4H PRN PO TEMPERATURE > 101 F 12/31/16 15:30 Ondansetron HCl (Zofran Inj) 4 mg Q6H PRN IV NAUSEA 12/31/16 15:30 Guaifenesin/ Dextromethorphan 10 ml 10 ml Q4H PRN PO COUGH 12/31/16 15:30 Vancomycin HCl/ Sodium Chloride (Vancomycin Inj/ NS 500 ml Inj) 517.5 ml @ 250 mls/hr Q24H IV 12/31/16 17:00 12/31/16 18:06 Miscellaneous Information SPECIFIC LAB TO BE ... ONCE ONCE .XX 01/03/17 16:45 01/03/17 16:46 Pantoprazole Sodium (Protonix Inj) 40 mg Q24H IV PUSH 12/31/16 22:00 Heparin Sodium (Porcine) (Heparin Inj) 5,000 units Q8HR SQ 12/31/16 22:00 Albuterol Sulfate (Ventolin Hfa Inh) 2 puff Q4H PRN INH SHORTNESS OF BREATH 12/31/16 21:30 Levothyroxine Sodium (Synthroid) 50 mcg DAILY@06 PO 01/01/17 06:00 Family History Unable to obtain Social History Unable to obtain Physical Exam Vital Signs Vital Signs Date Time Temp Pulse Resp B/P Pulse Ox O2 Delivery O2 Flow Rate FiO2 12/31/16 16:42 99 40 12/31/16 16:00 98.5 114 20 132/77 96 12/31/16 15:14 100.2 114 30 128/59 96 Non-Rebreather 15 12/31/16 14:48 115 30 88/52 92 Nasal Cannula 4 12/31/16 14:04 98 Nasal Cannula 2.00 12/31/16 13:33 100.6 114 20 190/76 99 Nasal Cannula 2 12/31/16 11:25 123 22 94 Nasal Cannula 3 12/31/16 11:23 99.4 132 22 140/72 93 Physical Exam GENERAL: Morbidly obese, lethargic male on facemask BiPAP SKIN: Warm and dry. HEAD: Normocephalic. EYES: No scleral icterus. No injection or drainage. NECK: Supple, trachea midline. No JVD or lymphadenopathy. CARDIOVASCULAR: Regular rate and rhythm without murmurs, gallops, or rubs. RESPIRATORY: Breath sounds equal bilaterally. No accessory muscle use. GASTROINTESTINAL: Abdomen soft, non-tender, nondistended. MUSCULOSKELETAL: No cyanosis, or edema. BACK: Nontender without obvious deformity. No CVA tenderness. EXTREMITIES: No clubbing or cyanosis Laboratory Laboratory Tests Test 12/31/16 12/31/16 12/31/16 11:45 11:47 18:25 White Blood Count 49.4 Red Blood Count 4.77 Hemoglobin 15.1 Hematocrit 46.3 Mean Corpuscular Volume 97.0 Mean Corpuscular Hemoglobin 31.7 Mean Corpuscular Hemoglobin 32.6 Concent Red Cell Distribution Width 18.0 Platelet Count 243 Mean Platelet Volume 9.6 Neutrophils (%) (Auto) 89.4 Lymphocytes (%) (Auto) 2.3 Monocytes (%) (Auto) 8.0 Eosinophils (%) (Auto) 0.1 Basophils (%) (Auto) 0.2 Neutrophils # (Auto) 44.2 Lymphocytes # (Auto) 1.1 Monocytes # (Auto) 3.9 Eosinophils # (Auto) 0.0 Basophils # (Auto) 0.1 CBC Comment AUTO DIFF Differential Total Cells 100 Counted Neutrophils % (Manual) 83 Band Neutrophils % 6 Lymphocytes % 2 Monocytes % 9 Neutrophils # (Manual) 44.0 Nucleated Red Blood Cells 1 Differential Comment FINAL DIFF MANUAL Platelet Estimate NORMAL Platelet Morphology Comment NORMAL Red Cell Morphology Comment NORMAL Sodium Level 136 Potassium Level 4.2 Chloride Level 96 Carbon Dioxide Level 36.3 Anion Gap 4 Blood Urea Nitrogen 16 Creatinine 1.39 Estimat Glomerular Filtration 51 Rate Random Glucose 213 Lactic Acid Level 1.3 Calcium Level 8.8 B-Type Natriuretic Peptide 50 Urine Color YELLOW Urine Turbidity HAZY Urine pH 6.0 Urine Specific [place] 1.025 Urine Protein 300 Urine Glucose (UA) 70 Urine Ketones NEG Urine Occult Blood MOD Urine Nitrite NEG Urine Bilirubin NEG Urine Urobilinogen LESS THAN 2.0 Urine Leukocyte Esterase LARGE Urine RBC 22 Urine WBC 150 Urine Squamous Epithelial <1 Cells Urine Transitional Epithelial 1 Cells Urine Bacteria MANY Urine Hyaline Casts 4 Urine Mucus FEW Microscopic Urinalysis Comment CATH-CULTURE IND Blood Gas Puncture Site LT RADIAL Blood Gas Patient Temperature 98.6 Blood Gas HCO3 31 Blood Gas Base Excess 4.6 Blood Gas Oxygen Saturation 93 Arterial Blood pH 7.25 Arterial Blood Partial 74 Pressure CO2 Arterial Blood Partial 78 Pressure O2 Arterial Blood Oxygen Content 18.7 Arterial Blood 2.6 Carboxyhemoglobin Arterial Blood Methemoglobin 0.4 Blood Gas Hemoglobin 14.3 Oxygen Delivery Device BIPAP Blood Gas Ventilator Setting [id number]/7PSV Blood Gas Inspired Oxygen 40 Date/Time Procedure Status Source Growth 12/31/16 11:50 Aerobic Blood Culture Received Blood Peripheral Pending 12/31/16 11:50 Anaerobic Blood Culture Received Blood Peripheral Pending 12/31/16 11:47 Urine Culture Received Urine Catheterized Urine Pending Result Diagram: 12/31/16 1145 12/31/16 1145 Imaging Last 24 hours Impressions Chest X-Ray 12/31/16 1132 Signed Impressions: Service Date/Time: Saturday, December 31, 2016 11:44 - CONCLUSION: Left lateral base mild atelectasis or consolidation. Esteban Fleming MD Assessment and Plan Assessment and Plan Hypercapnic respiratory failure - Untreated RJ - BiPAP 24/ - Follow-up ABG and chest x-ray a.m. COPD - BiPAP mechanical ventilation - IV steroids - Broad-spectrum antibiotics Respiratory acidosis - Due to above - Continue BiPAP machine COPD - Broad-spectrum antibiotics - IV steroids - DuoNeb scheduled and as needed Leukocytosis - Follow-up on cultures - De-escalate antibiotics per sensitivity - C. difficile by PCR Hypothyroidism - Levothyroxine DVT GI prophylaxis - Subcutaneous heparin/omeprazole Critical Care: The total critical care time was 35 minutes. Time to perform other separately billable procedures was not included in the critical care time. Félix Suarez MD December 31, 2016 20:04
[2016-12-31 20:17] LABS: MAGNESIUM 2.2 MG/DL (1.5-2.5)
[2016-12-31] MEDS ORDERED: ALBUTEROL SULFATE 90 MCG/ACT HFA 18 GM INHALER INH PRN (21:30)
[2016-12-31] MEDS: HEPARIN SODIUM - SQ 10,000 UNITS/ML VIAL SQ SCH (22:43)
[2016-12-31] MEDS: PANTOPRAZOLE SODIUM 40 MG VIAL IV PUSH SCH (22:43)
[2016-12-31] MEDS: PIPERACIL-TAZO 3.375 GM PREMIX 50 ML IV SCH (23:38)
[2017-01-01] VITALS (19 sets, daily range): BP systolic 82–115; BP diastolic 53–69; PULSE 59–114; RESP 0–18; TEMP 97.2–98.7; O2SAT 94–99
[2017-01-01] MEDS: PIPERACIL-TAZO 3.375 GM PREMIX 50 ML IV SCH ×3 (01:49→20:17)
[2017-01-01] MEDS: methylPREDNISolone SOD SUCC 40 MG/1 ML VIAL IV SCH ×2 (01:49→14:44)
[2017-01-01] MEDS: SODIUM CHLOR 0.9% 1000 ML INJ 1,000 ML IV SCH ×3 (01:53→20:00)
[2017-01-01 03:36] LABS: BLOOD GAS BASE EXCESS 1.8 mmol/L (-2-2); BLOOD GAS CARBOXYHEMOGLOBIN 2.7 % (0-4); BLOOD GAS HCO3 28 mmol/L (22-26); BLOOD GAS O2 HGB SATURATION 95 % (90-100); BLOOD GAS OXYGEN CONTENT 18.6 Vol % (12.0-20.0); BLOOD GAS PCO2 67 mmHg (38-42); BLOOD GAS PO2 100 mmHg (61-120); BLOOD GAS TOTAL HGB 13.9 G/DL (12.0-16.0); TEMP CORR TO 98.6
[2017-01-01 03:37] LABS: CRITICAL VALUE YES; DRAW SITE RT RADIAL; FIO2 40 %; NUMBER OF ARTERIAL PUNCTURES 2; OXYGEN DEVICE BiPAP; STAT NO; ULNAR PULSE PRESENT; VENT SETTINGS IPAP24/EPAP12
[2017-01-01] MEDS ORDERED: VANCOMYCIN INJ 900 MG in SODIUM CHLOR 0.9% 250 ML INJ 250 ML IV SCH (04:00)
[2017-01-01] MEDS: RESP: ALBUTEROL 2.5 MG/IPRATROPIUM 0.5 MG NEB (SCH) INH ×4 (04:36→20:25)
[2017-01-01] MEDS ORDERED: CHLORHEXIDINE GLUCONATE 2 % 1 PACK (2 CLOTHS)(extra cloths) TOPICAL PRN (04:45)
[2017-01-01] MEDS: LEVOTHYROXINE SODIUM 50 MCG TAB PO SCH (05:56)
[2017-01-01] MEDS: HEPARIN SODIUM - SQ 10,000 UNITS/ML VIAL SQ SCH ×3 (05:59→20:17)
--- NOTE | 2017-01-01 06:42 | HHI.CCPN ---
Subjective Remarks/Hospital Course 66-year-old morbidly obese male with a past medical history significant for recurrent pneumonia, COPD, hyperkalemia, GERD, edema, schizoaffective disorder, legally blind, hypertension, hypothyroidism, depression, coronary artery disease, obstructive sleep apnea, colostomy, constipation, vitamin D deficiency, TB, Parkinson's, and dementia that [facility] the [facility] with a chief complaint of altered mental status times 4 the last 3 days. Per medical record he has not been feeling well for the last 5 days, he has felt dizzy, lightheaded, with nausea and vomiting. Subjective: 01/01: Minimally responsive on BiPAP. Will be electively intubated this a.m. Significant CO2 retention. Objective Vital Signs Date Time Temp Pulse Resp B/P Pulse Ox O2 Delivery O2 Flow Rate FiO2 01/01/17 06:00 93 01/01/17 04:37 97 40 01/01/17 04:00 97.2 13 99/58 12/31/16 15:14 Non-Rebreather 15 Intake and Output 12/31/16 12/31/16 01/01/17 08:00 16:00 00:00 Intake Total 1079 ml Output Total 250 ml Balance 829 ml Result Diagram: 12/31/16 1145 12/31/16 1145 Other Results Microbiology Date/Time Procedure Status Source Growth 12/31/16 11:50 Aerobic Blood Culture Received Blood Peripheral Pending 12/31/16 11:50 Anaerobic Blood Culture Received Blood Peripheral Pending 12/31/16 11:47 Urine Culture Received Urine Catheterized Urine Pending 12/31/16 11:47 Legionella Antigen Received Urine Catheterized Urine Pending 12/31/16 11:47 Streptococcus pneumoniae Antigen (M Received Urine Catheterized Urine Pending Imaging Last Impressions Chest X-Ray 12/31/16 1132 Signed Impressions: Service Date/Time: Saturday, December 31, 2016 11:44 - CONCLUSION: Left lateral base mild atelectasis or consolidation. Esteban Fleming MD Objective Remarks GENERAL: 58-year-old male, critically ill currently on BiPAP respiratory distress SKIN: Warm and dry. No rash HEAD: Normocephalic. EYES: Has bilateral eye prosthesis. No scleral icterus. No injection or drainage. NECK: Supple, trachea midline. No JVD or lymphadenopathy. CARDIOVASCULAR: RRR. S1, S2. No S4. RESPIRATORY: Breath sounds equal bilaterally. No accessory muscle use. GASTROINTESTINAL: Abdomen soft, non-tender, nondistended. MUSCULOSKELETAL: Nonpitting peripheral edema BACK: Nontender without obvious deformity NEURO: Cranial nerves appear grossly intact. Moving all 4 extremities to noxious stimuli. A/P Assessment and Plan Neuro/Psych: Acute delirium likely secondary to CO2 retention Depression/anxiety Parkinson's disease? Dementia disorder NOS Seizure disorder Legal blindness - bilateral eye prosthesis Developmental delay PCO2 currently in the 60s. Arousable and currently protecting airway On Abilify 2 mg at night for underlying psychiatric disorder at home Minimize sedation Acetaminophen for fever CV: Hypertension Coronary artery disease Received 2 L normal saline in ED. currently normal saline at 100 cc an hour Home medication Norvasc 2.5 mg daily and Lasix 20 mg by mouth twice a day Troponin negative. Denies chest pain Resp: Acute hypoxic hypercapnic Respiratory failure History of COPD RJ? Chest x-ray 12/31 revealed left lower lobe infiltrate versus atelectasis Currently on BiPAP 24/ at 40%. Still retaining CO2 On duo nebs every 6 hours with albuterol every 2 hours when necessary dyspnea On Solu-Medrol 40 mg IV twice a day Add Pulmicort twice a day Will require intubation see orders GI: Gastroesophageal reflux disease History sigmoid volvulus status post colostomy Chronic constipation On Colace 100 mg at night for chronic constipation. Currently been held Ostomy cares Protonix for GI prophylaxis Likely start bowel regimen if intubated : Wilcox has been placed for accurate I's and O's in a critically ill patient Endo: Hyperglycemia - critical illness? Hypothyroidism Sliding-scale insulin with Accu-Cheks every 6 hours to maintain euglycemia/ moderate regimen On Levoxyl 50 g by mouth daily. Check TSH Renal: Acute kidney injury Accurate I's and O's Monitor urine output Follow-up a.m. labs Heme: Leukocytosis- neutrophil predominant A.m. laboratories currently pending. Follow trends likely infectious etiology Peripheral smear sent ID: Currently on Zosyn/Zithromax and vancomycin Received 1 dose of Rocephin and Zithromax Pertinent cultures 12/31 - blood cultures 2 - pending 12/31 - UA - pending Urine Legionella and strep pneumonia pending Influenza pending FEN: Replace electrolytes as clinically indicated MSK: Morbid obesity Vitamin D deficiency On vitamin D 1000 units by mouth daily at home. Weight loss will be encouraged Access - Utilize peripheral IV. Central line if indicated Prophylaxis - GI - Protonix IV - DVT - SCD/heparin subcutaneous Critical Care: The total critical care time was 35 minutes. Time to perform other separately billable procedures was not included in the critical care time. Valentín Shaffer MD January 01, 2017 06:41 DVT GI prophylaxis - Subcutaneous heparin/omeprazole Critical Care: The total critical care time was 35 minutes. Time to perform other separately billable procedures was not included in the critical care time. Valentín Shaffer MD January 01, 2017 06:41
[2017-01-01 06:49] LABS: BASOPHIL % 0.1 % (0.0-2.0); HEMATOCRIT 41.7 % (39.0-51.0); LYMPH % 1.6 % (9.0-44.0); LYMPHOCYTE # 0.7 TH/MM3 (1.0-4.8); MEAN CELL VOLUME 98.3 FL (80.0-100.0); MEAN CORPUSCULAR HEMOGLOBIN 31.8 PG (27.0-34.0); MEAN CORPUSCULAR HGB CONC 32.4 % (32.0-36.0); MONO % 2.1 % (0.0-8.0); NEUT % 96.2 % (16.0-70.0); PLATELET COUNT 201 TH/MM3 (150-450); RED BLOOD COUNT 4.24 MIL/MM3 (4.50-5.90); RED CELL DISTRIBUTION WIDTH 18.4 % (11.6-17.2); WHITE BLOOD COUNT 41.6 TH/MM3 (4.0-11.0)
[2017-01-01 07:00] LABS: BLOOD GAS BASE EXCESS 2.9 mmol/L (-2-2); BLOOD GAS CARBOXYHEMOGLOBIN 2.3 % (0-4); BLOOD GAS HCO3 29 mmol/L (22-26); BLOOD GAS O2 HGB SATURATION 96 % (90-100); BLOOD GAS OXYGEN CONTENT 19.2 Vol % (12.0-20.0); BLOOD GAS PCO2 65 mmHg (38-42); BLOOD GAS PO2 148 mmHg (61-120); CRITICAL VALUE YES; DRAW SITE RT RADIAL; FIO2 40 %; OXYGEN DEVICE BiPAP; TEMP CORR TO 98.6; VENT SETTINGS IPAP24 / EPAP12
[2017-01-01 07:01] LABS: NUMBER OF ARTERIAL PUNCTURES 1; STAT YES; ULNAR PULSE PRESENT
[2017-01-01 07:03] LABS: HEMO FLAGS AUTO DIFF
[2017-01-01 07:11] LABS: ALT (GPT) 19 U/L (12-78); ANION GAP 6 MEQ/L (5-15); AST (GOT) 15 U/L (15-37); BICARBONATE 29.8 MEQ/L (21.0-32.0); BLOOD UREA NITROGEN 24 MG/DL (7-18); CHLORIDE 102 MEQ/L (98-107); GLOMERULAR FILTRATION RATE 47 ML/MIN (>89); POTASSIUM 5.1 MEQ/L (3.5-5.1); SODIUM (NA) 138 MEQ/L (136-145)
[2017-01-01] MEDS ORDERED: GLUCAGON 1 MG/ML VIAL OTHER PRN (07:15)
[2017-01-01] MEDS ORDERED: GLUCAGON 1 MG/ML VIAL IM PRN (07:15)
[2017-01-01] MEDS ORDERED: DEXTROSE 50% IN WATER 50 ML VIAL(D50) IV PRN (07:15)
[2017-01-01 07:27] LABS: ALKALINE PHOSPHATASE 108 U/L (45-117); MAGNESIUM 2.4 MG/DL (1.5-2.5); TOTAL BILIRUBIN ADULT 0.5 MG/DL (0.2-1.0)
[2017-01-01 07:29] LABS: CREATINE KINASE 30 U/L (39-308)
[2017-01-01 07:50] LABS: BANDS 1 % (0-6); NEUTROPHIL # MANUAL DIFF 40.4 TH/MM3 (1.8-7.7); POLYS (SEG NEUTROPHILS) 96 % (16-70); WBC DIFF SAMPLE 100
[2017-01-01 07:51] LABS: PLATELET ESTIMATE SMEAR NORMAL (NORMAL); PLATELET MORPHOLOGY NORMAL (NORMAL); SCAN/DIFF FINAL DIFF MANUAL
--- NOTE | 2017-01-01 08:28 | RADRPT ---
EXAM DATE/TIME: 01/01/2017 06:37 [facility] COMPARISON: CHEST SINGLE AP, December 31, 2016, 11:44. INDICATIONS : Short of breath. MEDICAL HISTORY : Hypertension. SURGICAL HISTORY : None. ENCOUNTER: Subsequent ACUITY: 1 week PAIN SCORE: 0/10 LOCATION: Bilateral chest FINDINGS: There is worsening left base consolidation and effusion. Minimal parenchymal opacity at the right bas e. Accounting for rotation, cardiac contours are grossly stable. CONCLUSION: Worsening left base aeration. Esteban Alcantar MD on January 01, 2017 at 6:53 Board Certified Radiologist. This report was verified electronically.
[2017-01-01] MEDS ORDERED: ETOMIDATE 40 MG/20 ML VIAL IV PUSH ONE (08:30)
[2017-01-01] MEDS ORDERED: fentaNYL DRIP 250 ML IV SCH (08:30)
[2017-01-01] MEDS ORDERED: ROCURONIUM INJ 100 MG/10 ML VIAL IV ONE (08:30)
--- NOTE | 2017-01-01 08:31 | HHI.FPPN ---
Subjective Remarks FM Attending Note: Patient seen and examined. S: Chart and all resident physician notes reviewed. In summary this is a 66 year old male who was admitted with an admission diagnosis of Sepsis, Pneumonia , Uti. This patient resides at [facility] and has a past medical history significant for pneumonia, COPD, hyperkalemia, GERD, edema , schizoaffective disorder, legally blind, hypertension, hypothyroidism, depression, coronary artery disease, sleep apnea, colostomy, constipation, vitamin D deficiency, TB, Parkinson's, and dementia. Staff at facility noted that he was lethargic and non-responsive with O2 saturation at 87% on 3L or oxygen. This patient does use BiPAP intermittently at his SNF. No significant history is obtainable from patient. He does have a h/o admissions to this facility with similar clinical findings necessitating respiratory support. Regarding his functional status, the SNF transfer sheet notes that he requires an assist for bathing, dressing, transferring and toileting. He eats independently. He is occasionally incontinent of bladder function. Staff note that he normally is in a chair most of the day. Objective Vitals Vital Signs Date Time Temp Pulse Resp B/P Pulse Ox O2 Delivery O2 Flow Rate FiO2 01/01/17 07:57 96 50 01/01/17 07:57 96 BiPAP 50 01/01/17 06:00 93 01/01/17 04:37 97 40 01/01/17 04:00 97.2 93 13 99/58 01/01/17 04:00 98 01/01/17 04:00 82 13 97/57 94 01/01/17 02:00 95 01/01/17 00:00 114 01/01/17 00:00 97.2 93 13 99/58 12/31/16 23:55 63 40 12/31/16 22:30 114 12/31/16 21:32 99 40 12/31/16 20:00 99.5 98 28 101/66 92 12/31/16 16:42 99 40 12/31/16 16:00 98.5 114 20 132/77 96 12/31/16 15:14 100.2 114 30 128/59 96 Non-Rebreather 15 12/31/16 14:48 115 30 88/52 92 Nasal Cannula 4 12/31/16 14:04 98 Nasal Cannula 2.00 12/31/16 13:33 100.6 114 20 190/76 99 Nasal Cannula 2 12/31/16 11:25 123 22 94 Nasal Cannula 3 12/31/16 11:23 99.4 132 22 140/72 93 I/O 12/31/16 12/31/16 12/31/16 01/01/17 01/01/17 01/01/17 07:00 15:00 23:00 07:00 15:00 23:00 Intake Total 1079 ml Output Total 450 ml Balance 629 ml Intake IV Total 1079 ml Output Urine Total 450 ml Stool Total 0 ml Result Diagram: 01/01/17 0456 01/01/17 0739 Other Results Item Value Date Time Blood Gas HCO3 31 mmol/L H 12/31/161824 Blood Gas Oxygen Saturation 93 % 12/31/161824 Arterial Blood pH 7.25 *L 12/31/16 182 Arterial Blood Partial Pressure CO2 74 mmHg *H 12/31/16 182 Arterial Blood Partial Pressure O2 78 mmHg 12/31/161824 Blood Gas Inspired Oxygen 40 % 12/31/16 1825 B-Type Natriuretic Peptide 50 PG/ML 12/31/16 1145 Magnesium Level 2.2 MG/DL 12/31/16 1935 Phosphorus Level 2.6 MG/DL 12/31/16 1935 Total Creatine Kinase 40 U/L 12/31/165 Total Creatine Kinase 30 U/L L 01/01/17 0456 Troponin I 0.02 NG/ML 12/31/16 1935 Thyroid Stimulating Hormone 3rd Gen 1.400 uIU/ML 01/01/17 0456 Urine Specific [place] 1.025 12/31/16 1147 Urine Occult Blood MOD H 12/31/16 1147 Urine Nitrite NEG 12/31/16 1147 Urine Leukocyte Esterase LARGE H 12/31/16 1147 Urine RBC 22 /hpf H 12/31/16 1147 Urine WBC 150 /hpf H 12/31/16 1147 Imaging Last 48 hours Impressions Chest X-Ray 01/01/17 0000 Signed Impressions: Service Date/Time: Sunday, January 01, 2017 06:37 - CONCLUSION: Worsening left base aeration. Esteban Alcantar MD Chest X-Ray 12/31/16 1132 Signed Impressions: Service Date/Time: Saturday, December 31, 2016 11:44 - CONCLUSION: Left lateral base mild atelectasis or consolidation. Esteban Fleming MD Objective Remarks O. CONSTITUTIONAL/GEN: elevated BMI, somnolent with BiPAP in place. LUNGS: clear with poor air movement, respiratory effort is increased. CARDIOVASCULAR: RR without murmur or gallop. No significant edema. GI/ABD: soft without masses, without organomegaly. Colostomy. NEURO: No focal deficits. SKIN: color normal, no rashes noted. HEME/LYMPH: no bruising, petechia or significant adenopathy MUSC: back is normal in appearance. Extremities are normal in appearance. A/P Assessment and Plan 66-year-old male with multiple medical problems presents with altered mental status with signs and symptoms concerning for severe sepsis secondary to pneumonia and UTI. Patient will be admitted for treatment with IV antibiotics and fluids. Problem List: (1) Severe sepsis Status: Acute Plan: Initial vitals: Temperature 99.4F, pulse 132, BP 140/72, RR 22, 93% saturation Temperature increased to 100.6F Patient met severe sepsis criteria with elevated temperature, elevated respiratory rate and WBC of 49.4 Received 500 mL bolus in the ED, Rocephin 1 g IV, azithromycin 500 mg IV Patient later received 1000 mL bolus in the ED for blood pressure of 88/52 with good response UA significant for large leukocyte esterase, 22 RBC, 150 WBC, many bacteria in catheterized specimen - will order renal ultrasound CXR notable for left lateral base mild atelectasis or consolidation EKG showed sinus tachycardia with rates of 116. No overt signs of ACS by my interpretation Troponin ordered 1 was less than 0.02, CK 40, BNP 15 Urine culture pending Blood cultures pending Sputum Gram stain and culture pending Legionella urinary antigen pending Pneumococcal urinary antigen pending 2-D echo pending Zosyn 3.375 IV every 6 hours Levaquin 750 mg IV every 24 hours Vancomycin 1750 mg IV every 24 hours Solu-Medrol 40 mg IV every 12 hours DuoNeb every 6 hours scheduled Albuterol nebulizer every 2 hours when necessary shortness of breath Zofran 4 mg IV every 6 hours Tylenol 650 mg by mouth every 4 hours when necessary temperature greater than 101F NS @ 100 mls/hr IV, lower than maintenance due to concern for heart failure 01/01/17 This patient appears to have an acute exacerbation of his COPD with UTI and probable sepsis; associaeted respiratory failure. He has been transferred to the ICU and the assistant county engineer service has been consulted. (2) UTI (urinary tract infection) Status: Acute Plan: See plan above for severe sepsis (3) Pneumonia Status: Acute Plan: See plan above for severe sepsis (4) DANE (acute kidney injury) Status: Acute Plan: -Creatinine elevated at 1.39 in the ED -Baseline of 1.08 in 2016 -Continue normal saline at 100 mL's per hour -Will monitor in the a.m. (5) Chronic Medical Problems Status: Chronic Plan: COPD: Hold albuterol inhaler, continue albuterol and DuoNeb nebulizers Hypertension: Hold amlodipine 2.5 mg by mouth daily due to low/normotensive blood pressures Hyperlipidemia: Continue Atorvastin, Pravastatin Hypothyroidism: Continue Levothyroxine 50 g by mouth daily Schizoaffective disorder: Hold Abilify 2 mg daily Edema: Hold furosemide 20 mg by mouth twice a day due to low/normotensive blood pressures (6) FEN/DVT PPX/GI PPX/Nursing Orders Status: Acute Plan: Fluids: NS @ 100 mls/hr IV Electrolytes: Will monitor and replace as needed Nutrition: NPO due to altered mental status DVT Prophylaxis:Heparin subcutaneous Q8h, bilateral SCDs GI Prophylaxis: Protonix 40mg IV daily -Vitals Q4h -Monitor I's and O's -Fall precautions -Neurochecks -environmental monitoring specialist with telemetry with continuous vital signs -Supplemental oxygen -Activity bed rest Disposition: Uncertain at this time. Pending clinical improvement Problem Qualifiers (1) UTI (urinary tract infection): Qualified Code: N39.0 - Urinary tract infection without hematuria, site unspecified (2) Pneumonia: Qualified Code: J18.1 - Pneumonia of left lower lobe due to infectious organism Brody Casanova MD January 01, 2017 08:31
[2017-01-01] MEDS: RESP: BUDESONIDE 0.5 MG/2 ML NEB NEB SCH ×2 (08:57→20:25)
--- NOTE | 2017-01-01 09:07 | EKG ---
Date Performed: 12/31/2016 Time Performed: 23:22:23 PTAGE: 66 years EKG: Sinus rhythm INDETERMINATE AXIS PATTERN CONSISTENT WITH PULMONARY DISEASE POSSIBLE INFERIOR MYOCARDIAL INFARCTION , PROBABLY OLD ABNORMAL ECG PREVIOUS TRACING : 12/31/2016 20.26 DOCTOR: Bernardino Petty Interpretating Date/Time 01/01/2017 09:07:05
--- NOTE | 2017-01-01 09:16 | EKG ---
Date Performed: 12/31/2016 Time Performed: 20:26:03 PTAGE: 66 years EKG: SINUS TACHYCARDIA INDETERMINATE AXIS PATTERN CONSISTENT WITH PULMONARY DISEASE LEFT ANTERIO R FASCICULAR BLOCK PROBABLE INFERIOR MYOCARDIAL INFARCTION , OF INDETERMINATE AGE ABNORMAL ECG PREVIOUS TRACING : 12/31/2016 12.44 DOCTOR: Bernardino Petty Interpretating Date/Time 01/01/2017 09:14:23
--- NOTE | 2017-01-01 09:38 | EKG ---
Date Performed: 12/31/2016 Time Performed: 12:44:07 PTAGE: 66 years EKG: SINUS TACHYCARDIA INDETERMINATE AXIS POSSIBLE ANTERIOR MYOCARDIAL INFARCTION PROBABLE INFER IOR MYOCARDIAL INFARCTION ABNORMAL ECG PREVIOUS TRACING : 05/31/2016 12.52 DOCTOR: Bernardino Petty Interpretating Date/Time 01/01/2017 09:37:30
--- NOTE | 2017-01-01 10:11 | PD.PROCEDR ---
Procedure Note Procedure DATE: 01/01/2017 PROCEDURE: Orotracheal intubation INDICATION: Acute hypoxemic respiratory failure DETAILS OF PROCEDURE The patient was placed in optimal position and preoxygenated with 100% FiO2 via bag valve mask. At the start oxygen saturation was 100%. The patient was administered 25 micro-grams fentanyl IV and 20 mg etomidate IV and 50 mg rocuronium IV. I entered the oropharynx with a size 4 lGVL glidescope blade and obtained a grade 2 view of the airway. On single attempt a size 8.0 cuffed endotracheal tube was passed through the vocal cords. Correct tube location was confirmed with end tidal CO2 detector and by auscultating over bilateral lung giles. The endotracheal tube was secured with adhesive tape at a depth of 24 cm at the lips. The patient was connected to the ventilator. The patient tolerated the procedure well without any apparent complications. Oxygen saturations were maintained greater than 95% all times. STAT chest x-ray pending at time of dictation. Valentín Shaffer MD January 01, 2017 10:11
[2017-01-01] MEDS: SENNOSIDES SYRUP 8.8 MG/5 ML CUP PO SCH ×2 (10:15→20:17)
[2017-01-01] MEDS: DOCUSATE SODIUM 100 MG/10 ML UDC PO SCH ×2 (10:15→20:17)
[2017-01-01] MEDS: SODIUM CHLORIDE 0.9% FLUSH 10 ML FLUSH IV FLUSH SCH ×2 (10:38→20:17)
[2017-01-01] MEDS: INSULIN NovoLIN REGULAR SUPPLEMENTAL SCALE SQ SCH ×3 (11:00→20:50)
--- NOTE | 2017-01-01 11:24 | RADRPT ---
EXAM DATE/TIME: 01/01/2017 10:24 [facility] COMPARISON: CHEST SINGLE AP, January 01, 2017, 6:37. INDICATIONS : Post intubation. MEDICAL HISTORY : Hypertension. SURGICAL HISTORY : None. ENCOUNTER: Subsequent ACUITY: 3 days PAIN SCORE: Non-responsive. LOCATION: Bilateral chest FINDINGS: ET tube in good position. Heart is enlarged. Mild interstitial edema is present. There is increase d consolidation in the left lower lobe. CONCLUSION: 1. ET tube in good position. 2. Increasing consolidation left lower lobe with interstitial edema. Gerardo Louise MD FACR on January 01, 2017 at 11:10 Board Certified Radiologist. This report was verified electronically.
[2017-01-01 11:27] LABS: BLOOD GAS BASE EXCESS 2.2 mmol/L (-2-2); BLOOD GAS CARBOXYHEMOGLOBIN 2.2 % (0-4); BLOOD GAS HCO3 27 mmol/L (22-26); BLOOD GAS O2 HGB SATURATION 97 % (90-100); BLOOD GAS OXYGEN CONTENT 17.8 Vol % (12.0-20.0); BLOOD GAS PCO2 43 mmHg (38-42); BLOOD GAS PO2 167 mmHg (61-120); BLOOD GAS TOTAL HGB 12.8 G/DL (12.0-16.0); CRITICAL VALUE NO; DRAW SITE RT RADIAL; FIO2 100 %; NUMBER OF ARTERIAL PUNCTURES 1; OXYGEN DEVICE VENTILATOR; STAT NO; TEMP CORR TO 98.6; ULNAR PULSE PRESENT; VENT SETTINGS PRVC/AC
--- NOTE | 2017-01-01 12:59 | PD.PROCEDR ---
Central Line Procedure REASON FOR PROCEDURE Central venous access PROCEDURE PERFORMED Central line placement: Right IJ CVL CONSENT Informed consent for procedure was obtained as no family available and no healthcare proxy designated. Procedure considered emergent for vascular access in a hypertensive patient. Discussed with my colleague Dr. Newton who agreed with the need with placement. The risks and benefits of the procedure were discussed to include but limited to bleeding, clot formation, infection, and even . ANESTHESIA Local injection of 1% Lidocaine DESCRIPTION OF THE PROCEDURE The patient was placed in supine, mild Trendelenburg position. The area was exposed and cleansed with ChloraPrep, times two. Large sterile drape was used to cover the patient, with the site exposed, under sterile conditions including cap, face mask, sterile gown, and sterile gloves. On single attempt, the introducer needle was inserted with negative pressure in syringe and venous flash was obtained. The guide wire was then advanced without any restriction and the needle was removed. The dilator was used without any complications. Using Seldinger technique the triple-lumen antibiotic coated catheter was advanced over the guide wire to a depth of 16 centimeters. The guide wire was removed. All ports were aspirated with dark venous blood return and flushed easily with sterile saline. All ports were capped. Antibiotic disc was placed around central line at puncture site. The central line was secured to the skin with two interrupted 2.0 silk sutures. The area was bandaged with sterile see- through central line bandage. RADIOLOGICAL DATA Ultrasound guidance was used to locate right internal jugular vein. Doppler/ color flow was used to confirm venous flow. COMPLICATIONS: No apparent complications ESTIMATED BLOOD LOSS: Less than 1 cc. Valentín Shaffer MD January 01, 2017 12:59
[2017-01-01] MEDS ORDERED: SODIUM CHLORIDE 0.9% FLUSH 10 ML FLUSH IVF PRN (13:00)
[2017-01-01] MEDS ORDERED: NOREPINEPHRINE INJ 4 MG in SODIUM CHLOR 0.9% 250 ML INJ 246 ML IV SCH (13:00)
[2017-01-01] MEDS ORDERED: TERBUTALINE INJ 1 MG/ML AMP SQ PRN (13:00)
[2017-01-01] MEDS: SODIUM CHLORIDE 0.9% FLUSH 10 ML FLUSH IVF SCH (13:00)
--- NOTE | 2017-01-01 14:35 | RADRPT ---
EXAM DATE/TIME: 01/01/2017 13:10 [facility] COMPARISON: CHEST SINGLE AP, January 01, 2017, 10:24. INDICATIONS : Right central line placement. MEDICAL HISTORY : Hypertension. SURGICAL HISTORY : None. ENCOUNTER: Initial ACUITY: 1 day PAIN SCORE: Non-responsive. LOCATION: Bilateral chest FINDINGS: Centrale line is in good position. The ET tube is just above the lianet. Consolidative changes are seen in the left base. The right lung is clear. The heart is minimally enlarged. There is mild interstitial edema. CONCLUSION: 1. Consolidative changes left base. 2. ET tube in good position. 3. Mild interstitial edema. 4. Central line in good position. Gerardo Louise MD FACR on January 01, 2017 at 14:11 Board Certified Radiologist. This report was verified electronically.
[2017-01-01] MEDS: LEVOFLOXACIN 750 MG PREMIX INJ 150 ML IV SCH (14:48)
--- NOTE | 2017-01-01 15:40 | EC ---
Study Study Date:01/01/2017 STUDY CONCLUSIONS SUMMARY - Left ventricle: The cavity size was normal. Wall thickness was normal. Systolic function was normal. The estimated ejection fraction was in the range of 55% to 60%. Wall motion was normal; there were no regional wall motion abnormalities. - Aortic valve: Valve area: 3.29cm^2 (Vmax). If LV function is below 40, please consider prescribing an ACEI or ARB or document rationale for non-use. PROCEDURE DATA STUDY STATUS: Elective. Procedure: Transthoracic echocardiography. Image quality was poor. Scanning was performed from the parasternal, apical, and subcostal acoustic windows. Study completion: The patient tolerated the procedure well. Transthoracic echocardiography. M-mode, complete 2D, complete spectral Doppler, and color Doppler. Height: Height: 69in. Weight: Weight: 197.6lb. Body mass index: BMI: 29.2kg/m^2. Body surface area: BSA: 2.06m^2. Patient status: Inpatient. CARDIAC ANATOMY LEFT VENTRICLE: The cavity size was normal. Wall thickness was normal. Systolic function was normal. The estimated ejection fraction was in the range of 55% to 60%. Wall motion was normal; there were no regional wall motion abnormalities. AORTIC VALVE: Trileaflet; normal thickness leaflets. Doppler: Transvalvular velocity was within the normal range. There was no stenosis. No regurgitation. Valve area: 3.29cm^2 (Vmax). Indexed valve area: 1.6cm^2/m^2 (Vmax). AORTA: Aortic root: The aortic root was normal in size. MITRAL VALVE: Structurally normal valve. Doppler: Transvalvular velocity was within the normal range. There was no evidence for stenosis. No regurgitation. LEFT ATRIUM: The atrium was normal in size. RIGHT VENTRICLE: The cavity size was normal. Wall thickness was normal. PULMONIC VALVE: Doppler: Transvalvular velocity was within the normal range. There was no evidence for stenosis. No regurgitation. TRICUSPID VALVE: Structurally normal valve. Doppler: Transvalvular velocity was within the normal range. No regurgitation. PULMONARY ARTERY: The main pulmonary artery was normal-sized. Systolic pressure was within the normal range. RIGHT ATRIUM: The atrium was normal in size. PERICARDIUM: There was no pericardial effusion. SYSTEMIC VEINS: Inferior vena cava: The vessel was normal in size. Patient weight: 197.6lb _Ejection fraction:_ 65-75% _Fractional shortening:_ 32% up to 5Kg 5-11.5Kg 11.6-22.9Kg 23-45Kg 45-57Kg Aortic Root 7-13 <17 13-22 17-27 17-27 LA diam 6-13 <23 24-38 33-47 37-40 RVID 10-17 7-15 7-15 7-18 8-17 LVIDd 12-22 <32 24-38 33-47 37-40 LVPW 2-4 3-6 5-7 6-8 7-8 IVS 2-4 3-6 5-7 6-8 7-8 BASIC MEASUREMENTS ADULT NORMAL Left ventricle LV internal dimension, ED, chordal 46.3 mm 43-52 level, PLAX LV internal dimension, ES, chordal 34 mm 23-38 level, PLAX Fractional shortening, chordal level, *27 % >29 PLAX LV posterior wall thickness, ED 12.4 mm IVS/LVPW ratio, ED 0.98 <1.3 Ventricular septum Septal thickness, ED 12.2 mm Aortic valve Leaflet separation 19 mm 15-26 BASIC MEASUREMENTS ADULT NORMAL Aortic valve Leaflet separation 19 mm 15-26 Aorta Root diameter, ED 28 mm 20-37 Left atrium Anterior-posterior dimension, ES 34 mm 19-40 Anterior-posterior dimension index, ES 1.65 cm/m^2 <2.2 LA/aortic root ratio 1.21 DOPPLER MEASUREMENTS ADULT NORMAL Main pulmonary artery Pressure, S 24 mm Hg =30 Pressure, ED 13 mm Hg Aortic valve Peak velocity, S 84.2 cm/s Valve area, Vmax 3.29 cm^2 Valve area index, Vmax 1.6 cm^2/m^2 Mitral valve Peak E-wave velocity 67.6 cm/s Peak A-wave velocity 66.6 cm/s Deceleration time 194 ms 150-230 Peak E/A ratio 1 Tricuspid valve Regurgitant peak velocity 209 cm/s Peak RV-RA gradient, S 17 mm Hg Maximal regurgitant velocity 209 cm/s Systemic veins Estimated CVP 10 mm Hg Right ventricle RV pressure, S 28 mm Hg <30 Pulmonic valve Peak velocity, S 93.7 cm/s Regurgitant velocity, ED 81.4 cm/s LEGEND: Mean values are shown as u=mean value. Asterisk (*) lund values outside specified normal range. Prepared and signed by Vladimir Moon [id number]
[2017-01-01] MEDS: PROPOFOL 1000 MG/100 ML INJ 100 ML IV SCH ×2 (16:41→20:50)
[2017-01-01] MEDS: VANCOMYCIN INJ 1,750 MG in SODIUM CHLORID 0.9% 500 ML INJ 500 ML IV SCH (17:00)
[2017-01-01] MEDS: PANTOPRAZOLE SODIUM 40 MG VIAL IV PUSH SCH (20:16)
[2017-01-01] MEDS: CHLORHEXIDINE 0.12% (ORAL KIT) 15 ML CUP MT SCH (20:18)
[2017-01-02] VITALS (20 sets, daily range): BP systolic 108–137; BP diastolic 60–79; PULSE 53–78; RESP 0–19; TEMP 97.8–98.8; O2SAT 95–99
[2017-01-02] MEDS: RESP: ALBUTEROL 2.5 MG/IPRATROPIUM 0.5 MG NEB (SCH) INH ×4 (03:12→20:18)
[2017-01-02] MEDS ORDERED: PHARMACY ORDERED LAB ONE (03:45)
[2017-01-02] MEDS: CHLORHEXIDINE GLUCONATE 2 % 1 PACK (2 CLOTHS)(taper/protocol) TOPICAL SCH (04:00)
[2017-01-02] MEDS: LEVOTHYROXINE SODIUM 50 MCG TAB PO SCH (05:36)
[2017-01-02] MEDS: PIPERACIL-TAZO 3.375 GM PREMIX 50 ML IV SCH ×5 (05:37→23:25)
[2017-01-02] MEDS: methylPREDNISolone SOD SUCC 40 MG/1 ML VIAL IV SCH ×2 (05:37→14:18)
[2017-01-02] MEDS: SODIUM CHLOR 0.9% 1000 ML INJ 1,000 ML IV SCH ×2 (05:37→16:08)
[2017-01-02] MEDS: INSULIN NovoLIN REGULAR SUPPLEMENTAL SCALE SQ SCH ×5 (05:38→23:25)
[2017-01-02] MEDS: HEPARIN SODIUM - SQ 10,000 UNITS/ML VIAL SQ SCH ×3 (05:40→21:00)
[2017-01-02] MEDS: PROPOFOL 1000 MG/100 ML INJ 100 ML IV SCH ×4 (06:15→19:41)
[2017-01-02 06:18] LABS: AUTOMATED NEUTROPHIL # 30.7 TH/MM3 (1.8-7.7); BASOPHIL # 0.1 TH/MM3 (0-0.2); BASOPHIL % 0.2 % (0.0-2.0); HEMATOCRIT 38.8 % (39.0-51.0); HEMO FLAGS AUTO DIFF; LYMPH % 2.3 % (9.0-44.0); LYMPHOCYTE # 0.8 TH/MM3 (1.0-4.8); MEAN CELL VOLUME 94.7 FL (80.0-100.0); MEAN CORPUSCULAR HEMOGLOBIN 31.5 PG (27.0-34.0); MEAN CORPUSCULAR HGB CONC 33.2 % (32.0-36.0); MONO % 6.2 % (0.0-8.0); NEUT % 91.3 % (16.0-70.0); PLATELET COUNT 302 TH/MM3 (150-450); RED BLOOD COUNT 4.09 MIL/MM3 (4.50-5.90); RED CELL DISTRIBUTION WIDTH 17.1 % (11.6-17.2); WHITE BLOOD COUNT 33.6 TH/MM3 (4.0-11.0)
[2017-01-02 07:07] LABS: BICARBONATE 26.4 MEQ/L (21.0-32.0); MAGNESIUM 2.5 MG/DL (1.5-2.5); POTASSIUM 4.3 MEQ/L (3.5-5.1)
[2017-01-02] MEDS: RESP: BUDESONIDE 0.5 MG/2 ML NEB NEB SCH ×2 (07:56→20:18)
[2017-01-02] MEDS ORDERED: GLUCAGON 1 MG/ML VIAL OTHER PRN (08:15)
[2017-01-02] MEDS ORDERED: ALBUMIN HUMAN 25% 25 GM/100 ML BAGP IV ONE (08:15)
[2017-01-02] MEDS ORDERED: DEXTROSE 50% IN WATER 50 ML VIAL(D50) IV PRN (08:15)
[2017-01-02 08:17] LABS: BANDS 4 % (0-6); MYELOCYTES 1 % (0-0); NEUTROPHIL # MANUAL DIFF 30.2 TH/MM3 (1.8-7.7); PLATELET ESTIMATE SMEAR NORMAL (NORMAL); PLATELET MORPHOLOGY NORMAL (NORMAL); POLYS (SEG NEUTROPHILS) 85 % (16-70); SCAN/DIFF FINAL DIFF MANUAL; WBC DIFF SAMPLE 100
[2017-01-02] MEDS: SODIUM CHLORIDE 0.9% FLUSH 10 ML FLUSH IV FLUSH SCH ×2 (09:46→21:03)
[2017-01-02] MEDS: SODIUM CHLORIDE 0.9% FLUSH 10 ML FLUSH IVF SCH (09:46)
[2017-01-02] MEDS: CHLORHEXIDINE 0.12% (ORAL KIT) 15 ML CUP MT SCH ×2 (09:47→21:03)
[2017-01-02] MEDS: DOCUSATE SODIUM 100 MG/10 ML UDC PO SCH ×2 (09:47→21:00)
[2017-01-02] MEDS: SENNOSIDES SYRUP 8.8 MG/5 ML CUP PO SCH ×2 (09:47→21:00)
--- NOTE | 2017-01-02 09:52 | HHI.CCPN ---
Subjective Remarks/Hospital Course 66-year-old morbidly obese male with a past medical history significant for recurrent pneumonia, COPD, hyperkalemia, GERD, edema, schizoaffective disorder, legally blind, hypertension, hypothyroidism, depression, coronary artery disease, obstructive sleep apnea, colostomy, constipation, vitamin D deficiency, TB, Parkinson's, and dementia that presents to the [place] ED from his retirement with a chief complaint of altered mental status times 4 the last 3 days. Per medical record he has not been feeling well for the last 5 days, he has felt dizzy, lightheaded, with nausea and vomiting. 01/01: Minimally responsive on BiPAP. Will be electively intubated this a.m. Significant CO2 retention. Subjective: 01/02: Intubated yesterday secondary to altered mental status and CO2 retention. Appears better and clinically rest or standpoint. However creatinine has bumped to 2. Decreased urine output noted. Renal ultrasound pending along with urine electrolytes and eosinophils. We'll attempt spontaneous breathing trial today. Elevated blood sugars noted likely comminution of steroid-induced plus sepsis Objective Vital Signs Date Time Temp Pulse Resp B/P Pulse Ox O2 Delivery O2 Flow Rate FiO2 01/02/17 07:57 98 40 01/02/17 06:00 66 01/02/17 04:00 97.8 18 137/79 01/01/17 07:57 BiPAP 12/31/16 15:14 15 Intake and Output 01/01/17 01/01/17 01/02/17 08:00 16:00 00:00 Intake Total 1017 ml 1243 ml Output Total 200 ml 325 ml 200 ml Balance -200 ml 692 ml 1043 ml Result Diagram: 01/02/17 0545 01/02/17 0545 Other Results Microbiology Date/Time Procedure Status Source Growth 01/01/17 10:00 Gram Stain - Final Resulted Sputum Endotracheal 01/01/17 10:00 Sputum Culture Resulted Sputum Endotracheal Pending 12/31/16 11:50 Aerobic Blood Culture - Preliminary Resulted Blood Peripheral Gram Positive Cocci 12/31/16 11:50 Anaerobic Blood Culture - Preliminary Resulted Blood Peripheral NO GROWTH IN 1 DAY 12/31/16 11:47 Urine Culture - Final Complete Urine Catheterized Urine Proteus Mirabilis 12/31/16 11:47 Legionella Antigen - Final Complete Urine Catheterized Urine PRESUMPTIVE NEGATIVE FOR LEGIONELLA P... 12/31/16 11:47 Streptococcus pneumoniae Antigen (M - Final Complete Urine Catheterized Urine PRESUMPTIVE NEGATIVE FOR STREPTOCOCCU... Imaging Last Impressions Chest X-Ray 01/01/17 1259 Signed Impressions: Service Date/Time: Friday, January 01, 2017 13:10 - CONCLUSION: 1. Consolidative changes left base. 2. ET tube in good position. 3. Mild interstitial edema. 4. Central line in good position. Gerardo Louise MD FACR Objective Remarks GENERAL: 58-year-old male, critically ill currently orotracheally intubated SKIN: Warm and dry. No rash HEAD: Normocephalic. EYES: Has bilateral eye prosthesis. No scleral icterus. No injection or drainage. NECK: Supple, trachea midline. No JVD or lymphadenopathy. Right IJ is clean dry and intact CARDIOVASCULAR: Bradycardic, RR S1, S2. No S4. RESPIRATORY: Breath sounds equal bilaterally. No accessory muscle use. GASTROINTESTINAL: Abdomen soft, non-tender, nondistended. Hypoactive bowel sounds MUSCULOSKELETAL: Nonpitting peripheral edema BACK: Nontender without obvious deformity NEURO: Cranial nerves appear grossly intact. Moving all 4 extremities to noxious stimuli. A/P Assessment and Plan Neuro/Psych: Acute delirium likely secondary to CO2 retention Depression/anxiety Parkinson's disease? Dementia disorder NOS Seizure disorder Legal blindness - bilateral eye prosthesis Developmental delay Currently on propofol drip at 25 mics grams per kilogram minutes/fentanyl drip at 50 g an hour for sedation/analgesia while intubated Goal of RASS -2 Daily sedation vacation PCO2 yesterday in the 60s. Post intubation in the 40s. On Abilify 2 mg at night for underlying psychiatric disorder at home Acetaminophen for fever CV: Hypertension Coronary artery disease Received 2 L normal saline in ED. currently normal saline at 100 cc an hour Home medication Norvasc 2.5 mg daily and Lasix 20 mg by mouth twice a day Holding diuretics in light of acute kidney injury Was persistently hypotensive yesterday. Central line placed and low-dose norepinephrine ordered goal MAP >65 Troponin negative. Denies chest pain prior to intubation Resp: Acute hypoxic hypercapnic Respiratory failure History of COPD RJ? PRVC 18/550/08/11/39 Ventilator bundle On duo nebs every 6 hours with albuterol every 2 hours when necessary dyspnea On Solu-Medrol 40 mg IV twice a day Added Pulmicort twice a day 01/01 Chest x-ray 01/02 revealed left lower lobe infiltrate versus atelectasis GI: Gastroesophageal reflux disease History sigmoid volvulus status post colostomy Chronic constipation On Colace 100 mg at night for chronic constipation. Currently been held Ostomy cares Protonix for GI prophylaxis Colace liquid daily for bowel regimen Start tube feedings with Nepro goal 45 cc an hour : Wilcox has been placed for accurate I's and O's in a critically ill patient Endo: Hyperglycemia - critical illness? Plus/minus steroid Hypothyroidism Sliding-scale insulin with Accu-Cheks every 6 hours to maintain euglycemia/ moderate regimenmoderate regimen On Levoxyl 50 g by mouth daily. Renal: Acute kidney injury Accurate I's and O's Monitor urine output Follow-up a.m. labs Check renal ultrasound/urine electrolytes and eosinophils today Heme: Leukocytosis- neutrophil predominant A.m. laboratories currently pending. Follow trends likely infectious etiology Peripheral smear sent ID: Currently on Zosyn/Zithromax and vancomycin Received 1 dose of Rocephin and Zithromax Pertinent cultures 12/31 - blood cultures 2 -1 out of 2 gram-positive cocci 12/31 - UA - pending Urine Legionella and strep pneumonia pending Influenza pending FEN: Replace electrolytes as clinically indicated MSK: Morbid obesity Vitamin D deficiency On vitamin D 1000 units by mouth daily at home. Weight loss will be encouraged Access -Right IJ CVL day #2 placed 01/01 Prophylaxis - GI - Protonix IV - DVT - SCD/heparin subcutaneous Critical Care: The total critical care time was 35 minutes. Time to perform other separately billable procedures was not included in the critical care time. Valentín Shaffer MD Jan 02, 2017 09:52
[2017-01-02] MEDS ORDERED: SODIUM PHOSPHATE INJ 30 MMOL in SODIUM CHLOR 0.9% 250 ML INJ 250 ML IV ONE (10:00)
--- NOTE | 2017-01-02 10:23 | RADRPT ---
EXAM DATE/TIME: 01/02/2017 09:10 [facility] COMPARISON: No previous studies available for comparison. INDICATIONS : Abnormal labs. MEDICAL HISTORY : Chronic obstructive pulmonary disease. Thyroid disease. Legally blind. Developmentally delayed. S eizures. Hypertension. Gerd. Depression. Anxiety. Acute kidney injury. CAD. TB. Parkinsons. Dementia. SURGICAL HISTORY : Prostethic eye. Right shoulder surgery. Colonstomy. ENCOUNTER: Initial ACUITY: 1 day PAIN SCORE: Nonresponsive. LOCATION: Bilateral flank MEASUREMENTS: RIGHT KIDNEY: 11.3 x 5.6 x 5.8 cm LEFT KIDNEY: 10.1 x 5.1 x 5.1 cm FINDINGS: RIGHT KIDNEY: Renal cortex is normal in thickness and echotexture. No hydronephrosis, stone, or mass. LEFT KIDNEY: Much of the left kidney is obscured due to patient body habitus. Visualized portion is unremarkable. BLADDER: Collapsed. CONCLUSION: Poor visualization of the left kidney. Otherwise within normal limits. Vikas Stauffer MD on January 02, 2017 at 10:20 Board Certified Radiologist. This report was verified electronically.
--- NOTE | 2017-01-02 10:25 | HHI.FPPN ---
Subjective Remarks Patient seen and examined this morning. Still intubated and sedated at this time. Afebrile vital signs stable FiO2 at 40%. Patient's kidneys are showing signs of acute kidney. Review of systems unable to be obtained (Cesar Dorman MD R2) Objective Vitals Vital Signs Date Time Temp Pulse Resp B/P Pulse Ox O2 Delivery O2 Flow Rate FiO2 01/02/17 08:00 40 01/02/17 07:57 98 40 01/02/17 06:00 66 01/02/17 04:00 61 01/02/17 04:00 97.8 61 18 137/79 96 01/02/17 04:00 40 01/02/17 03:59 96 40 01/02/17 02:00 53 01/02/17 00:00 40 01/02/17 00:00 59 01/02/17 00:00 97.8 55 0 112/68 97 01/01/17 22:00 60 01/01/17 20:22 98 40 01/01/17 20:00 40 01/01/17 20:00 98.7 59 0 108/69 98 01/01/17 20:00 59 01/01/17 18:00 63 01/01/17 16:00 73 01/01/17 16:00 98.0 73 18 95/57 97 01/01/17 16:00 50 01/01/17 15:48 99 50 01/01/17 14:00 92 01/01/17 12:00 90 01/01/17 12:00 97.9 70 14 82/53 95 01/01/17 11:57 97 70 01/01/17 10:37 97 100 I/O 01/01/17 01/01/17 01/01/17 01/02/17 01/02/17 01/02/17 07:00 15:00 23:00 07:00 15:00 23:00 Intake Total 1079 ml 1017 ml 1243 ml 975 ml Output Total 450 ml 325 ml 200 ml 250 ml Balance 629 ml 692 ml 1043 ml 725 ml Intake IV Total 1079 ml 1017 ml 1243 ml 975 ml Output Urine Total 450 ml 325 ml 200 ml 250 ml Stool Total 0 ml 0 ml # Bowel Movements 0 1 (Cesar Dorman MD R2) Result Diagram: 01/02/17 0545 01/02/17 0545 Imaging Last Impressions Renal Ultrasound 01/02/17 0000 Signed Impressions: Service Date/Time: January 09:10 - CONCLUSION: Poor visualization of the left kidney. Otherwise within normal limits. Vikas Stauffer MD Chest X-Ray 01/01/17 1259 Signed Impressions: Service Date/Time: Sunday, January 01, 2017 13:10 - CONCLUSION: 1. Consolidative changes left base. 2. ET tube in good position. 3. Mild interstitial edema. 4. Central line in good position. Gerardo Louise MD FACR Objective Remarks O. CONSTITUTIONAL/GEN: Intubated and sedated LUNGS: clear with poor air movement, respiratory effort is increased. CARDIOVASCULAR: RR without murmur or gallop. No significant edema. GI/ABD: soft without masses, without organomegaly. Colostomy. NEURO: No focal deficits. SKIN: color normal, no rashes noted. HEME/LYMPH: no bruising, petechia or significant adenopathy MUSC: back is normal in appearance. Extremities are normal in appearance. Medications and IVs Current Medications Medications (Trade) Dose Ordered Sig/Fang Route Start Time Stop Time Status Last Admin (NS 1000 ml Inj) 1,000 ml @ 100 mls/hr Q10H IV 12/31/16 14:00 01/02/17 05:37 (NS Flush) 2 ml UNSCH PRN IV FLUSH 12/31/16 14:00 Sodium Chloride 2 ml 2 ml BID IV FLUSH 12/31/16 14:00 01/02/17 09:46 Pharmacy Profile Note 0 ml @ 0 mls/hr UNSCH OTHER 12/31/16 15:00 Piperacillin Sod/ Tazobactam Sod 50 ml @ 100 mls/hr Q6H IV 01/01/17 00:00 01/02/17 05:37 (Levaquin 750 Mg Premix Inj) 150 ml @ 100 mls/hr Q24H IV 01/01/17 12:00 01/01/17 14:48 (SoluMEDROL INJ) 40 mg Q12H IV 12/31/16 15:30 01/02/17 05:37 (Tylenol) 650 mg Q4H PRN PO 12/31/16 15:30 (Zofran Inj) 4 mg Q6H PRN IV 12/31/16 15:30 Guaifenesin/ Dextromethorphan 10 ml 10 ml Q4H PRN PO 12/31/16 15:30 (Vancomycin Inj/ NS 500 ml Inj) 517.5 ml @ 250 mls/hr Q24H IV 12/31/16 17:00 Hold 01/01/17 17:00 (Protonix Inj) 40 mg Q24H IV PUSH 12/31/16 22:00 01/01/17 20:16 (Heparin Inj) 5,000 units Q8HR SQ 12/31/16 22:00 01/02/17 05:40 (Synthroid) 50 mcg DAILY@06 PO 01/01/17 06:00 01/02/17 05:36 Miscellaneous Information Patient in critical care unit? Ass... [id number] .XX 01/01/17 04:45 (Chlorhexidine 2% Cloth) 3 pack DAILY@04 TOPICAL 01/02/17 04:00 01/06/17 04:01 01/02/17 04:00 (Chlorhexidine 2% Cloth) 3 pack UNSCH PRN TOPICAL 01/01/17 04:45 01/06/17 04:36 Chlorhexidine Gluconate 15 ml 15 ml BID@08,20 MT 01/01/17 20:00 01/02/17 09:47 Propofol 100 ml @ 0 mls/hr TITRATE IV 01/01/17 08:30 01/02/17 09:50 (fentaNYL DRIP) 250 ml @ 0 mls/hr TITRATE IV 01/01/17 08:30 (Colace Liq) 100 mg Q12HR PO 01/01/17 10:15 01/02/17 09:47 (Senna Liq) 8.8 mg BID PO 01/01/17 10:15 01/02/17 09:47 (NS Flush) DAILY IVF 01/01/17 13:00 01/02/17 09:46 Sodium Chloride UNSCH PRN IVF 01/01/17 13:00 (Levophed Inj/NS 250 ml Inj) 250 ml @ 0 mls/hr TITRATE IV 01/01/17 13:00 01/01/17 14:39 Terbutaline Sulfate 1 mg 1 mg UNSCH PRN SQ 01/01/17 13:00 (Sodium Phosphate Inj/NS 250 ml Inj) 260 ml @ 43.333 mls/ hr ONCE ONCE IV 01/02/17 10:00 01/02/17 15:59 01/02/17 09:47 (D50w (Vial) Inj) 50 ml UNSCH PRN IV 01/02/17 08:15 (Glucagon Inj) 1 mg UNSCH PRN OTHER 01/02/17 08:15 (NovoLIN R SUPPLEMENTAL SCALE) 1 Q4HR SQ 01/02/17 12:00 (Cesar Dorman MD R2) A/P Assessment and Plan 66-year-old male with multiple medical problems presents with altered mental status with signs and symptoms concerning for severe sepsis secondary to pneumonia and UTI. Patient will be admitted for treatment with IV antibiotics and fluids, currently intubated and sedated. wdw: Dr. Casanova Discharge Planning Undetermined at this time (Cesar Dorman MD R2) Attending Attestation Case reviewed and discussed with the resident team. Agree with plan of care as discussed with me and documented in the resident note. (Brody Casanova MD) Problem List: (1) COPD exacerbation Status: Acute Plan: Currently intubated and sedated (on fentanyl and propofol). Critical care currently managing patient. Attempting breathing trial today. Zosyn 3.375 IV every 6 hours Levaquin 750 mg IV every 24 hours Vancomycin 1750 mg IV every 24 hours Solu-Medrol 40 mg IV every 12 hours DuoNeb every 6 hours scheduled Albuterol nebulizer every 2 hours when necessary shortness of breath Zofran 4 mg IV every 6 hours Tylenol 650 mg by mouth every 4 hours when necessary temperature greater than 101F NS @ 100 mls/hr IV, lower than maintenance due to concern for heart failure Blood cultures growing gram-positive cocci likely contaminant awaiting follow-up (2) UTI (urinary tract infection) Status: Acute Plan: Urine cultures growing Proteus mirabilis See antibiotics above (3) DANE (acute kidney injury) Status: Acute Plan: -Creatinine elevated at 1.39 , now 1.9 -Baseline of 1.08 in 2016 -Decreased urine output -Bladder ultrasound pending -Continue normal saline at 100 mL's per hour -Will monitor in the a.m. (4) Chronic Medical Problems Status: Chronic Plan: COPD: Hold albuterol inhaler, continue albuterol and DuoNeb nebulizers Hypertension: Hold amlodipine 2.5 mg by mouth daily due to low/normotensive blood pressures Hyperlipidemia: Continue Atorvastin, Pravastatin Hypothyroidism: Continue Levothyroxine 50 g by mouth daily Schizoaffective disorder: Hold Abilify 2 mg daily Edema: Hold furosemide 20 mg by mouth twice a day due to low/normotensive blood pressures (5) FEN/DVT PPX/GI PPX/Nursing Orders Status: Acute Plan: Fluids: NS @ 100 mls/hr IV Electrolytes: Will monitor and replace as needed Nutrition: Through feeding tube DVT Prophylaxis:Heparin subcutaneous Q8h, bilateral SCDs GI Prophylaxis: Protonix 40mg IV daily -Vitals Q4h -Monitor I's and O's -Fall precautions -Neurochecks -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 Pending clinical improvement (Cesar Dorman MD R2) Problem Qualifiers (1) UTI (urinary tract infection): Qualified Code: N39.0 - Urinary tract infection without hematuria, site unspecified Cesar Dorman MD R2 Jan 02, 2017 10:25 Brody Casanova MD Jan 02, 2017 12:17
[2017-01-02] MEDS: LEVOFLOXACIN 750 MG PREMIX INJ 150 ML IV SCH (12:15)
[2017-01-02] MEDS ORDERED: LEVOFLOXACIN 750 MG PREMIX INJ 150 ML IV SCH (15:00)
[2017-01-02] MEDS ORDERED: SODIUM CHLOR 0.9% 1000 ML INJ 1,000 ML IV ONE ×2 (15:15→17:30)
[2017-01-02 17:08] LABS: BICARBONATE 27.6 MEQ/L (21.0-32.0); POTASSIUM 3.7 MEQ/L (3.5-5.1)
[2017-01-02] MEDS: PANTOPRAZOLE SODIUM 40 MG VIAL IV PUSH SCH (21:00)
[2017-01-03] VITALS (25 sets, daily range): BP systolic 109–132; BP diastolic 57–72; PULSE 67–94; RESP 11–26; TEMP 98.4–98.9; O2SAT 89–96
[2017-01-03] MEDS: PROPOFOL 1000 MG/100 ML INJ 100 ML IV SCH ×3 (00:56→09:16)
[2017-01-03] MEDS: RESP: ALBUTEROL 2.5 MG/IPRATROPIUM 0.5 MG NEB (SCH) INH ×4 (03:41→20:14)
[2017-01-03] MEDS: CHLORHEXIDINE GLUCONATE 2 % 1 PACK (2 CLOTHS)(taper/protocol) TOPICAL SCH (04:00)
[2017-01-03] MEDS: INSULIN NovoLIN REGULAR SUPPLEMENTAL SCALE SQ SCH ×6 (04:47→23:43)
[2017-01-03] MEDS: methylPREDNISolone SOD SUCC 40 MG/1 ML VIAL IV SCH ×2 (04:47→13:12)
[2017-01-03] MEDS: SODIUM CHLOR 0.9% 1000 ML INJ 1,000 ML IV SCH ×2 (04:55→11:50)
[2017-01-03 05:03] LABS: AUTOMATED NEUTROPHIL # 12.3 TH/MM3 (1.8-7.7); BASOPHIL % 0.1 % (0.0-2.0); HEMATOCRIT 34.7 % (39.0-51.0); LYMPH % 5.9 % (9.0-44.0); LYMPHOCYTE # 0.9 TH/MM3 (1.0-4.8); MEAN CELL VOLUME 91.8 FL (80.0-100.0); MEAN CORPUSCULAR HEMOGLOBIN 32.9 PG (27.0-34.0); MEAN CORPUSCULAR HGB CONC 35.8 % (32.0-36.0); MONO % 9.6 % (0.0-8.0); NEUT % 84.4 % (16.0-70.0); PLATELET COUNT 267 TH/MM3 (150-450); RED BLOOD COUNT 3.78 MIL/MM3 (4.50-5.90); RED CELL DISTRIBUTION WIDTH 17.5 % (11.6-17.2); WHITE BLOOD COUNT 14.6 TH/MM3 (4.0-11.0)
[2017-01-03 05:06] LABS: HEMO FLAGS AUTO DIFF
[2017-01-03 05:24] LABS: BICARBONATE 26.1 MEQ/L (21.0-32.0); CALCIUM-PROTEIN CORRECTED 8.1 MG/DL (8.5-10.1); MAGNESIUM 2.5 MG/DL (1.5-2.5); POTASSIUM 3.6 MEQ/L (3.5-5.1); TOTAL BILIRUBIN ADULT 0.4 MG/DL (0.2-1.0)
[2017-01-03] MEDS: HEPARIN SODIUM - SQ 10,000 UNITS/ML VIAL SQ SCH ×3 (05:31→22:06)
[2017-01-03] MEDS: LEVOTHYROXINE SODIUM 50 MCG TAB PO SCH (05:31)
[2017-01-03] MEDS: PIPERACIL-TAZO 3.375 GM PREMIX 50 ML IV SCH ×4 (05:32→23:44)
--- NOTE | 2017-01-03 06:37 | RADRPT ---
EXAM DATE/TIME: 01/03/2017 04:54 [facility] COMPARISON: CHEST SINGLE AP, January 01, 2017, 13:10. INDICATIONS : Shortness of breath. MEDICAL HISTORY : Hypertension. Chronic obstructive pulmonary disease. SURGICAL HISTORY : None. ENCOUNTER: Subsequent ACUITY: 4 - 6 days PAIN SCORE: Non-responsive. LOCATION: Bilateral chest FINDINGS: The cardiac silhouette is enlarged in transverse diameter. There is left lower lobe atelectasis versu s pneumonia. A small left sided effusion is present. Support lines and tubes are in satisfactory posi tion. CONCLUSION: 1. Cardiomegaly. Left lower lobe atelectasis versus pneumonia. There has been no significant change w hen compared to the prior exam. Epi Lange MD on January 03, 2017 at 6:35 Board Certified Radiologist. This report was verified electronically.
[2017-01-03 07:30] LABS: SCAN/DIFF AUTO DIFF CONFIRMED
[2017-01-03] MEDS: RESP: BUDESONIDE 0.5 MG/2 ML NEB NEB SCH ×2 (08:14→20:14)
--- NOTE | 2017-01-03 08:49 | HHI.FPPN ---
Subjective Remarks Patient is intubated and sedated. Off Levophed with blood pressure within normal range. FI02 45%, RR 16, PEEP 8. (Eko,Elvie U R1) Objective Vitals Vital Signs Date Time Temp Pulse Resp B/P Pulse Ox O2 Delivery O2 Flow Rate FiO2 01/03/17 08:14 94 45 01/03/17 06:00 82 01/03/17 04:00 40 01/03/17 04:00 98.7 94 18 110/62 94 01/03/17 04:00 77 01/03/17 03:58 94 40 01/03/17 02:00 68 01/03/17 01:10 94 40 01/03/17 00:00 67 01/03/17 00:00 45 01/03/17 00:00 98.7 67 18 109/57 94 01/02/17 22:02 96 45 01/02/17 22:00 78 01/02/17 20:17 99 45 01/02/17 20:00 65 01/02/17 20:00 40 01/02/17 20:00 98.4 65 19 120/67 98 01/02/17 18:00 68 01/02/17 17:00 65 01/02/17 16:00 40 01/02/17 16:00 54 01/02/17 16:00 98.8 54 108/67 95 01/02/17 15:07 97 40 01/02/17 14:00 60 01/02/17 12:00 98.6 60 109/64 95 01/02/17 12:00 40 01/02/17 12:00 60 01/02/17 11:33 95 40 01/02/17 10:00 64 01/02/17 10:00 64 112/60 96 01/02/17 09:00 65 112/63 95 I/O 01/02/17 01/02/17 01/02/17 01/03/17 01/03/17 01/03/17 07:00 15:00 23:00 07:00 15:00 23:00 Intake Total 975 ml 985 ml 2724 ml 1070 ml Output Total 250 ml 450 ml 450 ml 350 ml Balance 725 ml 535 ml 2274 ml 720 ml Intake IV Total 975 ml 985 ml 2537 ml 859 ml Tube Feeding 187 ml 211 ml Output Urine Total 250 ml 450 ml 450 ml 350 ml Stool Total 0 ml 0 ml # Bowel Movements 1 0 (EkElvei clark MD R1) Result Diagram: 01/03/1743401/03/17434 Objective Remarks O. CONSTITUTIONAL/GEN: Intubated and sedated LUNGS: CTAB CARDIOVASCULAR: RR without murmur or gallop. No significant edema GI/ABD: soft without masses, without organomegaly. Colostomy NEURO: No focal deficits SKIN: color normal, no rashes noted HEME/LYMPH: no bruising, petechia or significant adenopathy MUSC: Extremities are normal in appearance (EkElvie clark MD R1) A/P Assessment and Plan 66-year-old male with multiple medical problems presented with altered mental status with signs and symptoms concerning for severe sepsis secondary to pneumonia and UTI. Patient was admitted for treatment with IV antibiotics and fluids, currently in the ICU secondary to hypercapnic respiratory failure, intubated and sedated. wdw: Dr. Casanova Discharge Planning Undetermined at this time (Elvie Doe MD R1) Attending Attestation Case reviewed and discussed with the resident team. Agree with plan of care as discussed with me and documented in the resident note. (Brody Casanova MD) Problem List: (1) Acute hypercapnic respiratory failure Status: Acute Plan: -Currently intubated and sedated (on fentanyl and propofol) -Critical care's help in managing patient is well appreciated -Plan to attempt CPAP trial today (2) Severe sepsis Status: Acute Plan: -Patient in the ICU being managed for UTI and probable sepsis with associated respiratory failure -WBC down to 14.6 today compared to 49.4 on admission -Blood cultures growing staph coagulase negative sp, likely contaminant -Lactic acid elevated today at 2.4, will follow -Continue antibiotic and fluids regimen as below Zosyn 3.375 IV every 6 hours Levaquin 750 mg IV every 48 hours NS @ 100 mls/hr IV Zofran 4 mg IV every 6 hours Tylenol 650 mg by mouth every 4 hours when necessary temperature greater than 101F (3) COPD exacerbation Status: Acute Plan: DuoNeb every 6 hours scheduled Albuterol nebulizer every 2 hours when necessary shortness of breath Budesonide 0.5mg nebulizer q12hrs Solu-Medrol 40 mg IV every 12 hours (4) UTI (urinary tract infection) Status: Acute Plan: Urine cultures growing Proteus mirabilis, sensitive to Zosyn See antibiotics above (5) DANE (acute kidney injury) Status: Acute Plan: -Creatinine elevated at 1.39 , down to 1.85 from 1.93 -Baseline of 1.08 in 2016 -Good urine output of 1250ml in the last 24 hours -Renal ultrasound had poor visualization of the left kidney, but otherwise normal - no hydronephrosis or stones -Continue normal saline at 100 mL per hour -Continue to monitor with daily BMPs (6) Chronic Medical Problems Status: Chronic Plan: COPD: Hold albuterol inhaler, continue albuterol and DuoNeb nebulizers with Pulmicort nebulizers Diabetes: SSI Hypertension: Hold amlodipine 2.5 mg by mouth daily Hyperlipidemia: Hold Atorvastatin Hypothyroidism: Continue Levothyroxine 50 g by mouth daily Schizoaffective disorder: Continue Abilify 2 mg daily Edema: Hold furosemide 20 mg by mouth twice a day due to low/normotensive blood pressures (7) FEN/DVT PPX/GI PPX/Nursing Orders Status: Acute Plan: Fluids: NS @ 100 mls/hr IV Electrolytes: Will monitor and replace as needed Nutrition: Through feeding tube DVT Prophylaxis:Heparin subcutaneous Q8h, bilateral SCDs GI Prophylaxis: Protonix 40mg IV daily -Vitals Q4h -Monitor I's and O's -Fall precautions -back pad inspector with telemetry with continuous vital signs -Supplemental oxygen -Activity bed rest Disposition: Uncertain at this time. Pending clinical improvement (Elvie Doe MD R1) Problem Qualifiers (1) UTI (urinary tract infection): Qualified Code: N39.0 - Urinary tract infection without hematuria, site unspecified Elvie Doe MD R1 Jan 03, 2017 08:49 Brody Casanova MD Jan 03, 2017 11:49
[2017-01-03] MEDS ORDERED: POTASSIUM PHOSPHATE MONOBASIC 500 MG TAB PO PRN (09:15)
[2017-01-03] MEDS: SENNOSIDES SYRUP 8.8 MG/5 ML CUP PO SCH ×2 (09:16→20:16)
[2017-01-03] MEDS: DOCUSATE SODIUM 100 MG/10 ML UDC PO SCH ×2 (09:16→20:16)
[2017-01-03] MEDS: SODIUM CHLORIDE 0.9% FLUSH 10 ML FLUSH IV FLUSH SCH ×2 (09:19→20:16)
[2017-01-03] MEDS: SODIUM CHLORIDE 0.9% FLUSH 10 ML FLUSH IVF SCH (09:19)
[2017-01-03] MEDS: CHLORHEXIDINE 0.12% (ORAL KIT) 15 ML CUP MT SCH ×2 (09:20→19:59)
[2017-01-03] MEDS ORDERED: BUMETANIDE INJ 1 MG/4 ML VIAL IV PUSH ONE (12:00)
--- NOTE | 2017-01-03 12:11 | HHI.CCPN ---
Subjective Remarks/Hospital Course 66-year-old morbidly obese male with a past medical history significant for recurrent pneumonia, COPD, hyperkalemia, GERD, edema, schizoaffective disorder, legally blind, hypertension, hypothyroidism, depression, coronary artery disease, obstructive sleep apnea, colostomy, constipation, vitamin D deficiency, TB, Parkinson's, and dementia that presents to the [place] ED from his custodial with a chief complaint of altered mental status times 4 the last 3 days. Per medical record he has not been feeling well for the last 5 days, he has felt dizzy, lightheaded, with nausea and vomiting. 01/01: Minimally responsive on BiPAP. Will be electively intubated this a.m. Significant CO2 retention. Subjective: 01/02: Intubated yesterday secondary to altered mental status and CO2 retention. Appears better and clinically rest or standpoint. However creatinine has bumped to 2. Decreased urine output noted. Renal ultrasound pending along with urine electrolytes and eosinophils. We'll attempt spontaneous breathing trial today. Elevated blood sugars noted likely combination of steroid-induced plus sepsis 01/03: Remains intubated sedated, white count improved from 33.6-14.6. Patient is legally blind. Following commands all extremities Objective Vital Signs Date Time Temp Pulse Resp B/P Pulse Ox O2 Delivery O2 Flow Rate FiO2 01/03/17 11:43 92 40 01/03/17 06:00 82 01/03/17 04:00 98.7 18 110/62 01/01/17 07:57 BiPAP 12/31/16 15:14 15 Intake and Output 01/02/17 01/02/17 01/03/17 08:00 16:00 00:00 Intake Total 975 ml 985 ml 2724 ml Output Total 250 ml 450 ml 450 ml Balance 725 ml 535 ml 2274 ml Result Diagram: 01/03/17 0435 01/03/17 0435 Other Results Microbiology Date/Time Procedure Status Source Growth 01/01/17 10:00 Gram Stain - Final Complete Sputum Endotracheal 01/01/17 10:00 Sputum Culture - Final Complete Sputum Endotracheal NO GROWTH IN 48 HOURS. Imaging Last Impressions Chest X-Ray 01/01/17 1117 Signed Impressions: Service Date/Time: Sunday, January 01, 2017 13:10 - CONCLUSION: 1. Consolidative changes left base. 2. ET tube in good position. 3. Mild interstitial edema. 4. Central line in good position. Gerardo Louise MD FACR Objective Remarks GENERAL: 58-year-old male, critically ill currently orotracheally intubated SKIN: Warm and dry. No rash HEAD: Normocephalic. EYES: Has bilateral eye prosthesis. No scleral icterus. No injection or drainage. NECK: Supple, trachea midline. No JVD or lymphadenopathy. Right IJ is clean dry and intact CARDIOVASCULAR: RR S1, S2. No S4. RESPIRATORY: Breath sounds equal bilaterally. No accessory muscle use. GASTROINTESTINAL: Abdomen soft, non-tender, nondistended. Hypoactive bowel sounds MUSCULOSKELETAL: Nonpitting peripheral edema BACK: Nontender without obvious deformity NEURO: He is legally blind limiting pupillary exam. Follows commands in all 4 extremities A/P Assessment and Plan Neuro/Psych: Acute delirium likely secondary to CO2 retention Depression/anxiety Parkinson's disease? Dementia disorder NOS Seizure disorder Legal blindness - bilateral eye prosthesis Developmental delay Currently on propofol /fentanyl drips for sedation/analgesia while intubated Goal of RASS -2. Hold all sedation for weaning trial On Abilify 2 mg at night for underlying psychiatric disorder at home Acetaminophen for fever CV: Hypertension Coronary artery disease Received 2 L normal saline in ED. currently normal saline at 100 cc an hour Home medication Norvasc 2.5 mg daily and Lasix 20 mg by mouth twice a day Holding diuretics in light of acute kidney injury. Give Bumex 1 mg IV x 1 due to positive fluid balance Norepinephrine ordered goal MAP >65 Troponin negative. Denies chest pain prior to intubation Resp: Acute hypoxic hypercapnic Respiratory failure History of COPD RJ? [facility] Ventilator bundle. Initiate CPAP trial with ABG and parameters On duo nebs every 6 hours with albuterol every 2 hours when necessary dyspnea On Solu-Medrol 40 mg IV twice a day Pulmicort twice a day 01/01 Chest x-ray 01/02 revealed left lower lobe infiltrate versus atelectasis GI: Gastroesophageal reflux disease History sigmoid volvulus status post colostomy Chronic constipation On Colace 100 mg at night for chronic constipation. Currently been held Ostomy cares Protonix for GI prophylaxis Colace liquid daily for bowel regimen Tube feedings with Nepro goal 45 cc an hour : Wilcox has been placed for accurate I's and O's in a critically ill patient Endo: Hyperglycemia - critical illness and steroid Hypothyroidism Sliding-scale insulin with Accu-Cheks every 6 hours to maintain euglycemia/ moderate regimenmoderate regimen On Levoxyl 50 g by mouth daily. Renal: Acute kidney injury Accurate I's and O's Monitor urine output Follow-up a.m. labs IV Bumex 1 mg 1. Discontinue IV fluid maintenance Heme: Leukocytosis- neutrophil predominant Leukocytosis trending down. Follow trends likely infectious etiology Peripheral smear sent ID: Currently on Zosyn/Zithromax and vancomycin Received 1 dose of Rocephin and Zithromax Pertinent cultures 12/31 - blood cultures 2 -1 out of 2 Coag neg Staph 12/31 - Urine cx E Coli Urine Legionella and strep pneumonia NEG Influenza pending FEN: Replace electrolytes as clinically indicated MSK: Morbid obesity Vitamin D deficiency On vitamin D 1000 units by mouth daily at home. Weight loss will be encouraged Access -Right IJ CVL day #3 placed 01/01 Prophylaxis - GI - Protonix IV - DVT - SCD/heparin subcutaneous Critical Care: The total critical care time was 35 minutes. Presley Orellana MD Jan 03, 2017 12:11
[2017-01-03 12:55] LABS: BLOOD GAS BASE EXCESS -0.7 mmol/L (-2-2); BLOOD GAS CARBOXYHEMOGLOBIN 1.6 % (0-4); BLOOD GAS HCO3 24 mmol/L (22-26); BLOOD GAS METHEMOGLOBIN 1.1 % (0-2); BLOOD GAS O2 HGB SATURATION 96 % (90-100); BLOOD GAS OXYGEN CONTENT 17.8 Vol % (12.0-20.0); BLOOD GAS PCO2 47 mmHg (38-42); BLOOD GAS PO2 108 mmHg (61-120); BLOOD GAS TOTAL HGB 13.1 G/DL (12.0-16.0); CRITICAL VALUE NO; TEMP CORR TO 98.6
[2017-01-03 12:56] LABS: DRAW SITE LT RADIAL; FIO2 40 %; NUMBER OF ARTERIAL PUNCTURES 1; OXYGEN DEVICE VENTILATOR; STAT NO; ULNAR PULSE PRESENT; VENT SETTINGS CPAP 5/5PS
[2017-01-03 13:44] LABS: LACTIC ACID GHOST NOT REPORTABLE
[2017-01-03] MEDS ORDERED: PHARMACY ORDERED LAB ONE (16:45)
[2017-01-03] MEDS: PANTOPRAZOLE SODIUM 40 MG VIAL IV PUSH SCH (22:06)
[2017-01-04] VITALS (16 sets, daily range): BP systolic 111–162; BP diastolic 64–79; PULSE 68–92; RESP 14–24; TEMP 97.6–99.4; O2SAT 87–95
[2017-01-04] MEDS: methylPREDNISolone SOD SUCC 40 MG/1 ML VIAL IV SCH ×2 (03:16→18:23)
[2017-01-04] MEDS: CHLORHEXIDINE GLUCONATE 2 % 1 PACK (2 CLOTHS)(taper/protocol) TOPICAL SCH (03:31)
[2017-01-04] MEDS: INSULIN NovoLIN REGULAR SUPPLEMENTAL SCALE SQ SCH ×5 (03:31→20:00)
[2017-01-04] MEDS: RESP: ALBUTEROL 2.5 MG/IPRATROPIUM 0.5 MG NEB (SCH) INH ×4 (04:53→21:32)
[2017-01-04 05:34] LABS: AUTOMATED NEUTROPHIL # 10.9 TH/MM3 (1.8-7.7); BASOPHIL % 0.1 % (0.0-2.0); EOSINOPHIL % 0.1 % (0.0-4.0); HEMATOCRIT 38.9 % (39.0-51.0); LYMPH % 8.5 % (9.0-44.0); LYMPHOCYTE # 1.2 TH/MM3 (1.0-4.8); MEAN CELL VOLUME 92.7 FL (80.0-100.0); MEAN CORPUSCULAR HEMOGLOBIN 32.5 PG (27.0-34.0); MONO % 11.5 % (0.0-8.0); NEUT % 79.8 % (16.0-70.0); PLATELET COUNT 266 TH/MM3 (150-450); RED BLOOD COUNT 4.19 MIL/MM3 (4.50-5.90); RED CELL DISTRIBUTION WIDTH 17.3 % (11.6-17.2); WHITE BLOOD COUNT 13.6 TH/MM3 (4.0-11.0)
[2017-01-04 05:50] LABS: HEMO FLAGS AUTO DIFF
[2017-01-04] MEDS: PIPERACIL-TAZO 3.375 GM PREMIX 50 ML IV SCH ×3 (05:53→18:24)
[2017-01-04] MEDS: LEVOTHYROXINE SODIUM 50 MCG TAB PO SCH (05:53)
[2017-01-04] MEDS: HEPARIN SODIUM - SQ 10,000 UNITS/ML VIAL SQ SCH ×3 (05:53→21:02)
[2017-01-04 06:00] LABS: ALKALINE PHOSPHATASE 72 U/L (45-117); ALT (GPT) 37 U/L (12-78); ANION GAP 7 MEQ/L (5-15); AST (GOT) 35 U/L (15-37); BICARBONATE 29.6 MEQ/L (21.0-32.0); BLOOD UREA NITROGEN 43 MG/DL (7-18); CHLORIDE 110 MEQ/L (98-107); GLOMERULAR FILTRATION RATE 41 ML/MIN (>89); POTASSIUM 3.9 MEQ/L (3.5-5.1); SODIUM (NA) 147 MEQ/L (136-145); TOTAL BILIRUBIN ADULT 0.6 MG/DL (0.2-1.0); VANCOMYCIN TROUGH 5.9 MCG/ML (5.0-10.0)
--- NOTE | 2017-01-04 07:20 | HHI.FPPN ---
Subjective Remarks Patient is extubated, sitting up in bed, making conversation. He denies fever, headache, abdominal pain, nausea, or vomiting, but states that he has been having chills. Nurse at bedside states that he has been having bladder spasms. (Eko,Elvieangélica Ramirez MD R1) Objective Vitals Vital Signs Date Time Temp Pulse Resp B/P Pulse Ox O2 Delivery O2 Flow Rate FiO2 01/04/17 06:00 87 01/04/17 04:52 95 50 01/04/17 04:00 78 01/04/17 04:00 98.0 71 14 147/78 94 01/04/17 02:00 74 01/04/17 00:34 95 50 01/04/17 00:00 99.4 68 24 124/70 95 01/04/17 00:00 68 01/03/17 22:00 74 01/03/17 21:32 96 50 01/03/17 20:15 98.8 82 26 132/72 91 01/03/17 20:00 80 20 124/67 89 01/03/17 20:00 80 01/03/17 18:00 79 01/03/17 17:00 80 12 116/62 95 01/03/17 16:00 86 01/03/17 16:00 98.9 86 21 129/64 94 01/03/17 15:00 84 11 121/64 90 01/03/17 14:00 91 14 126/60 90 01/03/17 14:00 91 01/03/17 13:41 90 Nasal Cannula 5 01/03/17 13:41 90 Nasal Cannula 5.00 01/03/17 13:00 92 19 128/65 92 01/03/17 12:00 98.7 88 20 126/63 92 01/03/17 12:00 88 01/03/17 12:00 40 01/03/17 11:43 92 40 01/03/17 11:00 86 19 119/60 93 01/03/17 10:00 87 01/03/17 10:00 87 20 129/62 93 01/03/17 09:27 45 01/03/17 09:00 71 18 120/63 94 01/03/17 08:14 94 45 01/03/17 08:00 40 01/03/17 08:00 98.4 67 17 119/63 94 01/03/17 08:00 67 I/O 01/03/17 01/03/17 01/03/17 01/04/17 01/04/17 01/04/17 07:00 15:00 23:00 07:00 15:00 23:00 Intake Total 1070 ml 1263 ml 480 ml 120 ml Output Total 350 ml 100 ml 1325 ml 50 ml Balance 720 ml 1163 ml -845 ml 70 ml Intake Oral 240 ml 480 ml 120 ml IV Total 859 ml 810 ml 0 ml 0 ml Tube Feeding 211 ml 213 ml Output Urine Total 350 ml 100 ml 1325 ml 50 ml Stool Total 0 ml # Voids 3 # Bowel Movements 1 1 (Elvie Doe MD R1) Result Diagram: 01/04/17 0505 01/04/17 0505 Objective Remarks O. CONSTITUTIONAL/GEN: Extubated, on 6L by NC, very pleasant, making conversation LUNGS: CTAB CARDIOVASCULAR: Tachycardic rate, regular rhythm, without murmur or gallop. No significant edema GI/ABD: soft without masses, without organomegaly. Colostomy NEURO: No focal deficits SKIN: color normal, no rashes noted HEME/LYMPH: no bruising, petechia or significant adenopathy MUSC: Extremities are normal in appearance (Elvie Doe MD R1) A/P Assessment and Plan 66-year-old male with multiple medical problems presented with altered mental status with signs and symptoms concerning for severe sepsis secondary to pneumonia and UTI. Patient was admitted for treatment with IV antibiotics and fluids, and was transferred to the ICU secondary to hypercapnic respiratory failure where he was intubated and sedated. Patient was extubated on 01/03 and is doing well on NC. wdw: Dr. Holm Discharge Planning Undetermined at this time (Elvie oDe MD R1) Attending Attestation Patient seen and examined. Case reviewed and discussed with the resident team. Agree with plan of care as discussed with me and documented in the resident note. (Carolyne Holm MD) Problem List: (1) Acute hypercapnic respiratory failure Status: Resolved Plan: -Extubated on 01/03 -Critical care's help in managing patient is well appreciated (2) Severe sepsis Status: Acute Plan: -Patient in the ICU being managed for UTI and probable sepsis with associated respiratory failure -WBC down to 13.6 today compared to 49.4 on admission -Blood cultures growing staph coagulase negative sp, likely contaminant -Lactic acid elevated today at 2.2, will follow -Continue antibiotic and fluids regimen as below Zosyn 3.375 IV every 6 hours Levaquin 750 mg IV every 48 hours NS @ 100 mls/hr IV Zofran 4 mg IV every 6 hours Tylenol 650 mg by mouth every 4 hours when necessary temperature greater than 101F (3) COPD exacerbation Status: Acute Plan: DuoNeb every 6 hours scheduled Albuterol nebulizer every 2 hours when necessary shortness of breath Budesonide 0.5mg nebulizer q12hrs Solu-Medrol 40 mg IV every 12 hours (4) UTI (urinary tract infection) Status: Acute Plan: Urine cultures growing Proteus mirabilis, sensitive to Zosyn See antibiotics above (5) DANE (acute kidney injury) Status: Acute Plan: -Creatinine elevated down to 1.67 from 1.85 on 01/03 -Baseline of 1.08 in 2016 -Good urine output of 1475 ml in the last 24 hours -Renal ultrasound had poor visualization of the left kidney, but otherwise normal - no hydronephrosis or stones -Continue normal saline at 100 mL per hour -Continue to monitor with daily BMPs (6) Chronic Medical Problems Status: Chronic Plan: COPD: Hold albuterol inhaler, continue albuterol and DuoNeb nebulizers with Pulmicort nebulizers Diabetes: SSI Hypertension: Hold amlodipine 2.5 mg by mouth daily Hyperlipidemia: Hold Atorvastatin Hypothyroidism: Continue Levothyroxine 50 g by mouth daily Schizoaffective disorder: Continue Abilify 2 mg daily Edema: Hold furosemide 20 mg by mouth twice a day due to low/normotensive blood pressures (7) FEN/DVT PPX/GI PPX/Nursing Orders Status: Acute Plan: Fluids: NS @ 100 mls/hr IV Electrolytes: Will monitor and replace as needed Nutrition: Full liquids DVT Prophylaxis:Heparin subcutaneous Q8h, bilateral SCDs GI Prophylaxis: Protonix 40mg IV daily -Vitals Q4h -Monitor I's and O's -Fall precautions -color television console monitor with telemetry with continuous vital signs -Supplemental oxygen -Activity bed rest Disposition: Uncertain at this time. Pending clinical improvement (Eko,Elvie Ramirez MD R1) Problem Qualifiers (1) UTI (urinary tract infection): Qualified Code: N39.0 - Urinary tract infection without hematuria, site unspecified Elvie Doe MD R1 Jan 04, 2017 07:20 Carolyne Holm MD Jan 04, 2017 09:56
[2017-01-04 07:22] LABS: BANDS 14 % (0-6); MYELOCYTES 2 % (0-0); NEUTROPHIL # MANUAL DIFF 11.4 TH/MM3 (1.8-7.7); POLYS (SEG NEUTROPHILS) 68 % (16-70); WBC DIFF SAMPLE 100
[2017-01-04 07:23] LABS: PLATELET ESTIMATE SMEAR NORMAL (NORMAL); PLATELET MORPHOLOGY NORMAL (NORMAL); SCAN/DIFF FINAL DIFF MANUAL
[2017-01-04] MEDS: CHLORHEXIDINE 0.12% (ORAL KIT) 15 ML CUP MT SCH ×2 (08:00→20:58)
[2017-01-04] MEDS: RESP: BUDESONIDE 0.5 MG/2 ML NEB NEB SCH ×2 (09:21→21:32)
[2017-01-04] MEDS ORDERED: VANCOMYCIN INJ 2,000 MG in SODIUM CHLORID 0.9% 500 ML INJ 500 ML IV SCH (10:00)
[2017-01-04] MEDS: SODIUM CHLORIDE 0.9% FLUSH 10 ML FLUSH IV FLUSH SCH ×2 (10:02→20:59)
[2017-01-04] MEDS: SODIUM CHLORIDE 0.9% FLUSH 10 ML FLUSH IVF SCH (10:02)
[2017-01-04] MEDS: SENNOSIDES SYRUP 8.8 MG/5 ML CUP PO SCH ×2 (10:03→20:59)
[2017-01-04] MEDS: DOCUSATE SODIUM 100 MG/10 ML UDC PO SCH ×2 (10:03→20:59)
--- NOTE | 2017-01-04 10:23 | HHI.CCPN ---
Subjective Remarks/Hospital Course 66-year-old morbidly obese male with a past medical history significant for recurrent pneumonia, COPD, hyperkalemia, GERD, edema, schizoaffective disorder, legally blind, hypertension, hypothyroidism, depression, coronary artery disease, obstructive sleep apnea, colostomy, constipation, vitamin D deficiency, TB, Parkinson's, and dementia that presents to the [place] ED from his [facility] with a chief complaint of altered mental status times 4 the last 3 days. Per medical record he has not been feeling well for the last 5 days, he has felt dizzy, lightheaded, with nausea and vomiting. 01/01: Minimally responsive on BiPAP. Will be electively intubated this a.m. Significant CO2 retention. Subjective: 01/02: Intubated yesterday secondary to altered mental status and CO2 retention. Appears better and clinically rest or standpoint. However creatinine has bumped to 2. Decreased urine output noted. Renal ultrasound pending along with urine electrolytes and eosinophils. We'll attempt spontaneous breathing trial today. Elevated blood sugars noted likely combination of steroid-induced plus sepsis 01/03: Remains intubated sedated, white count improved from 33.6-14.6. Patient is legally blind. Following commands all extremities 01/04: Extubated yesterday tolerating well. Breathing comfortably on face mask. Tolerating diet. Creatinine slightly improved urine output adequate will give additional 1 mg IV Bumex due to positive fluid balance Objective Vital Signs Date Time Temp Pulse Resp B/P Pulse Ox O2 Delivery O2 Flow Rate FiO2 01/04/17 10:00 88 01/04/17 09:23 93 Nasal Cannula 5.00 01/04/17 04:52 50 01/04/17 04:00 98.0 14 147/78 Intake and Output 01/03/17 01/03/17 01/04/17 08:00 16:00 00:00 Intake Total 1070 ml 1263 ml 480 ml Output Total 350 ml 100 ml 1325 ml Balance 720 ml 1163 ml -845 ml Result Diagram: 01/04/17 0505 01/04/17 0505 Other Results Laboratory Tests Test 01/03/17 12:46 Blood Gas Puncture Site LT RADIAL Blood Gas Patient Temperature 98.6 Blood Gas HCO3 24 mmol/L (22-26) Blood Gas Base Excess -0.7 mmol/L (-2-2) Blood Gas Oxygen Saturation 96 % (90-100) Arterial Blood pH 7.34 (7.380-7.420) Arterial Blood Partial 47 mmHg (38-42) Pressure CO2 Arterial Blood Partial 108 mmHg Pressure O2 (61-120) Arterial Blood Oxygen Content 17.8 Vol % (12.0-20.0) Arterial Blood 1.6 % (0-4) Carboxyhemoglobin Arterial Blood Methemoglobin 1.1 % (0-2) Blood Gas Hemoglobin 13.1 G/DL (12.0-16.0) Oxygen Delivery Device VENTILATOR Blood Gas Ventilator Setting CPAP 5/5PS Blood Gas Inspired Oxygen 40 % Imaging Last Impressions Chest X-Ray 01/01/17 1259 Signed Impressions: Service Date/Time: Friday, January 01, 2017 13:10 - CONCLUSION: 1. Consolidative changes left base. 2. ET tube in good position. 3. Mild interstitial edema. 4. Central line in good position. Gerardo Louise MD FACR Objective Remarks GENERAL: 58-year-old male, extubated yesterday SKIN: Warm and dry. No rash HEAD: Normocephalic. EYES: Has bilateral eye prosthesis. No scleral icterus. No injection or drainage. NECK: Supple, trachea midline. No JVD or lymphadenopathy. Right IJ is clean dry and intact CARDIOVASCULAR: RR S1, S2. No S4. RESPIRATORY: Breath sounds equal bilaterally. No accessory muscle use. GASTROINTESTINAL: Abdomen soft, non-tender, nondistended. Hypoactive bowel sounds MUSCULOSKELETAL: Nonpitting peripheral edema BACK: Nontender without obvious deformity NEURO: He is legally blind limiting pupillary exam. Follows commands in all 4 extremities Vascular Central Line Catheter: Yes Assessment to: Remove A/P Assessment and Plan Neuro/Psych: Acute delirium likely secondary to CO2 retention-resolved Depression/anxiety Parkinson's disease? Dementia disorder NOS Seizure disorder Legal blindness - bilateral eye prosthesis Developmental delay Discontinued all continuos sedation On Abilify 2 mg at night for underlying psychiatric disorder at home Acetaminophen for fever CV: Septic shock resolved Hypertension Coronary artery disease Received 2 L normal saline in ED. DC maintenance IV fluids Home medication Norvasc 2.5 mg daily and Lasix 20 mg by mouth twice a day Holding diuretics in light of acute kidney injury. Given Bumex 1 mg IV x 1 due to positive fluid balance 01/03, repeat dose today 01/04 Norepinephrine been off Troponin negative. Denies chest pain prior to intubation Resp: Acute hypoxic hypercapnic Respiratory failure History of COPD RJ? Extubated 01-03-17 tolerating well On duo nebs every 6 hours with albuterol every 2 hours when necessary dyspnea On Solu-Medrol 40 mg IV twice a day Pulmicort twice a day 01/01 Chest x-ray 01/02 revealed left lower lobe infiltrate versus atelectasis GI: Gastroesophageal reflux disease History sigmoid volvulus status post colostomy Chronic constipation On Colace 100 mg at night for chronic constipation. Currently been held Ostomy cares Protonix for GI prophylaxis Colace liquid daily for bowel regimen Tube feedings with Nepro goal 45 cc an hour : Wilcox has been placed for accurate I's and O's in a critically ill patient Endo: Hyperglycemia - critical illness and steroid Hypothyroidism Sliding-scale insulin with Accu-Cheks every 6 hours to maintain euglycemia/ moderate regimenmoderate regimen On Levoxyl 50 g by mouth daily. Renal: Acute kidney injury Accurate I's and O's Monitor urine output Follow-up a.m. labs IV Bumex 1 mg 1 repeat today. Heme: Leukocytosis- neutrophil predominant Leukocytosis trending down. Follow trends likely infectious etiology Peripheral smear sent ID: Currently on Zosyn/Zithromax and vancomycin. DC Vanc today Received 1 dose of Rocephin and Zithromax Pertinent cultures 12/31 - blood cultures 2 -1 out of 2 Coag neg Staph 12/31 - Urine cx E Coli Urine Legionella and strep pneumonia NEG FEN: Replace electrolytes as clinically indicated MSK: Morbid obesity Vitamin D deficiency On vitamin D 1000 units by mouth daily at home. Access -Right IJ CVL day #4 placed 01/01 DC today Prophylaxis - GI - Protonix IV - DVT - SCD/heparin subcutaneous Critical Care: Level 3 PT OOB CCM will sign off. Re consult as needed Presley Orellana MD Jan 04, 2017 10:23
[2017-01-04] MEDS ORDERED: POTASSIUM CHLORIDE 25 MEQ EFFERVESCENT TAB PO ONE (11:00)
[2017-01-04] MEDS ORDERED: BUMETANIDE INJ 1 MG/4 ML VIAL IV PUSH ONE (11:00)
[2017-01-04] MEDS: LEVOFLOXACIN 750 MG PREMIX INJ 150 ML IV SCH (12:05)
[2017-01-04] MEDS: PANTOPRAZOLE SODIUM 40 MG VIAL IV PUSH SCH (21:01)
[2017-01-05] VITALS (17 sets, daily range): BP systolic 148–180; BP diastolic 72–85; PULSE 71–98; RESP 18–28; TEMP 97.8–98.9; O2SAT 86–98
[2017-01-05] MEDS: PIPERACIL-TAZO 3.375 GM PREMIX 50 ML IV SCH ×4 (01:11→17:53)
[2017-01-05] MEDS: RESP: ALBUTEROL 2.5 MG/IPRATROPIUM 0.5 MG NEB (SCH) INH ×4 (03:58→20:47)
[2017-01-05] MEDS: INSULIN NovoLIN REGULAR SUPPLEMENTAL SCALE SQ SCH ×6 (04:00→20:00)
[2017-01-05] MEDS: CHLORHEXIDINE GLUCONATE 2 % 1 PACK (2 CLOTHS)(taper/protocol) TOPICAL SCH (04:00)
--- NOTE | 2017-01-05 04:28 | RADRPT ---
EXAM DATE/TIME: 01/05/2017 03:28 [place] COMPARISON: CHEST SINGLE AP, January 03, 2017, 4:54. INDICATIONS : Shortness of breath, possible pulmonary disease. MEDICAL HISTORY : Hypertension. Chronic obstructive pulmonary disease. SURGICAL HISTORY : None. ENCOUNTER: Subsequent ACUITY: 1 week PAIN SCORE: Non-responsive. LOCATION: Bilateral chest FINDINGS: Right IJ line is present with tip overlapping the expected region of the SVC. Left basilar opacity is present may be due to a combination of consolidation and or pleural effusion. Previously seen NG tub e has been removed. CONCLUSION: Left basilar opacity is present may be due to a combination of consolidation and or pleural effusion. Vikash Cuevas MD on January 05, 2017 at 4:27 Board Certified Radiologist. This report was verified electronically.
[2017-01-05] MEDS: methylPREDNISolone SOD SUCC 40 MG/1 ML VIAL IV SCH (04:46)
[2017-01-05 05:54] LABS: AUTOMATED NEUTROPHIL # 12.3 TH/MM3 (1.8-7.7); BASOPHIL # 0.1 TH/MM3 (0-0.2); BASOPHIL % 0.3 % (0.0-2.0); EOSINOPHIL # 0.2 TH/MM3 (0-0.4); EOSINOPHIL % 1.2 % (0.0-4.0); HEMATOCRIT 37.8 % (39.0-51.0); LYMPH % 9.8 % (9.0-44.0); LYMPHOCYTE # 1.5 TH/MM3 (1.0-4.8); MEAN CORPUSCULAR HEMOGLOBIN 32.6 PG (27.0-34.0); MONO % 9.6 % (0.0-8.0); NEUT % 79.1 % (16.0-70.0); PLATELET COUNT 261 TH/MM3 (150-450); RED BLOOD COUNT 4.07 MIL/MM3 (4.50-5.90); RED CELL DISTRIBUTION WIDTH 17.4 % (11.6-17.2); WHITE BLOOD COUNT 15.5 TH/MM3 (4.0-11.0)
[2017-01-05 05:57] LABS: HEMO FLAGS AUTO DIFF
[2017-01-05 06:16] LABS: ANION GAP 5 MEQ/L (5-15); AST (GOT) 47 U/L (15-37); BICARBONATE 34.7 MEQ/L (21.0-32.0); BLOOD UREA NITROGEN 36 MG/DL (7-18); CHLORIDE 108 MEQ/L (98-107); GLOMERULAR FILTRATION RATE 45 ML/MIN (>89); MAGNESIUM 2.3 MG/DL (1.5-2.5); POTASSIUM 4.8 MEQ/L (3.5-5.1); SODIUM (NA) 148 MEQ/L (136-145)
[2017-01-05 06:17] LABS: ALT (GPT) 84 U/L (12-78)
[2017-01-05 06:20] LABS: ALKALINE PHOSPHATASE 62 U/L (45-117); TOTAL BILIRUBIN ADULT 0.5 MG/DL (0.2-1.0)
[2017-01-05] MEDS: LEVOTHYROXINE SODIUM 50 MCG TAB PO SCH (06:31)
[2017-01-05] MEDS: HEPARIN SODIUM - SQ 10,000 UNITS/ML VIAL SQ SCH ×3 (06:31→21:47)
[2017-01-05] MEDS: CHLORHEXIDINE 0.12% (ORAL KIT) 15 ML CUP MT SCH ×2 (08:00→21:47)
[2017-01-05 08:04] LABS: BANDS 4 % (0-6); MYELOCYTES 5 % (0-0); NEUTROPHIL # MANUAL DIFF 13.6 TH/MM3 (1.8-7.7); POLYS (SEG NEUTROPHILS) 79 % (16-70); WBC DIFF SAMPLE 100
[2017-01-05 08:05] LABS: SCAN/DIFF FINAL DIFF MANUAL
[2017-01-05] MEDS: DOCUSATE SODIUM 100 MG/10 ML UDC PO SCH ×2 (09:02→21:46)
[2017-01-05] MEDS: SODIUM CHLORIDE 0.9% FLUSH 10 ML FLUSH IVF SCH (09:02)
[2017-01-05] MEDS: SENNOSIDES SYRUP 8.8 MG/5 ML CUP PO SCH ×2 (09:02→21:46)
[2017-01-05] MEDS: SODIUM CHLORIDE 0.9% FLUSH 10 ML FLUSH IV FLUSH SCH ×2 (09:02→21:47)
[2017-01-05] MEDS: RESP: BUDESONIDE 0.5 MG/2 ML NEB NEB SCH ×2 (09:23→20:47)
--- NOTE | 2017-01-05 11:37 | HHI.FPPN ---
Subjective Remarks Patient seen and examined this morning. He was extubated on 01/03 and has continued to do well. When he is asked how he is doing this morning, he states that he is "doing well". Breathing comfortably on room air. He requires BiPAP at night at home, and has continued to receive BiPAP while in the hospital. Patient and nursing both report good by mouth intake. Overall, he states he feels improved. (Kailyn Zamarripa MD) Objective Vitals Vital Signs Date Time Temp Pulse Resp B/P Pulse Ox O2 Delivery O2 Flow Rate FiO2 01/05/17 09:25 94 Nasal Cannula 4.00 01/05/17 06:00 75 01/05/17 04:38 98 50 01/05/17 04:00 98.3 71 24 166/81 97 01/05/17 04:00 71 01/05/17 02:00 80 01/05/17 01:15 94 50 01/05/17 00:00 73 01/05/17 00:00 98.0 73 20 152/76 94 01/04/17 22:03 95 50 01/04/17 22:00 81 01/04/17 21:35 94 Nasal Cannula 4.00 01/04/17 20:00 76 01/04/17 20:00 97.6 76 18 134/67 92 01/04/17 16:00 98.9 83 22 128/64 95 01/04/17 16:00 83 01/04/17 14:00 86 01/04/17 12:00 86 01/04/17 12:00 99.1 86 24 111/69 87 I/O 01/04/17 01/04/17 01/04/17 01/05/17 01/05/17 01/05/17 07:00 15:00 23:00 07:00 15:00 23:00 Intake Total 120 ml 800 ml 871 ml 155 ml Output Total 50 ml 400 ml 300 ml 250 ml Balance 70 ml 400 ml 571 ml -95 ml Intake Oral 120 ml 480 ml 120 ml 80 ml IV Total 0 ml 320 ml 751 ml 75 ml Output Urine Total 50 ml 150 ml 200 ml Stool Total 250 ml 100 ml 250 ml # Voids 2 2 # Bowel Movements 1 (Kailyn Zamarripa MD) Result Diagram: 01/05/175 6/4/17 0325 Imaging Last Impressions Chest X-Ray 01/05/17 0600 Signed Impressions: Service Date/Time: Thursday, January 05, 2017 03:28 - CONCLUSION: Left basilar opacity is present may be due to a combination of consolidation and or pleural effusion. Vikash Cuevas MD Renal Ultrasound 01/02/17 0000 Signed Impressions: Service Date/Time: January 09:10 - CONCLUSION: Poor visualization of the left kidney. Otherwise within normal limits. Vikas Stauffer MD Objective Remarks O. CONSTITUTIONAL/GEN: Extubated, on 4L by LA, very pleasant, making conversation LUNGS: CTAB CARDIOVASCULAR: Regular rate and regular rhythm, without murmur or gallop. No significant edema GI/ABD: soft without masses, without organomegaly. Colostomy NEURO: No focal deficits SKIN: color normal, no rashes noted HEME/LYMPH: no bruising, petechia or significant adenopathy MUSC: Extremities are normal in appearance Procedures Intubation 01/01/17 Extubation 01/03/17 (Kailyn Zamarripa MD) Urinary Catheter: Yes Assessment to: Continue Wilcox insert reason: Prolonged Immobilization (Kailyn Zamarripa MD) A/P Assessment and Plan 66-year-old male with multiple medical problems presented with altered mental status with signs and symptoms concerning for severe sepsis secondary to pneumonia and UTI. Patient was admitted for treatment with IV antibiotics and fluids, and was transferred to the ICU secondary to hypercapnic respiratory failure where he was intubated and sedated. Patient was extubated on 01/03 and is doing well on LA. sdw: Dr. Nader Diamond Discharge Planning Undetermined at this time (Kailyn Zamarripa MD) Attending Attestation Patient seen and examined. Case reviewed and discussed with the resident team. Agree with plan of care as discussed with me and documented in the resident note. (Carolyne Holm MD) Problem List: (1) Acute hypercapnic respiratory failure Status: Resolved Plan: -Extubated on 01/03 -Critical care's help in managing patient is well appreciated (2) Severe sepsis Status: Acute Plan: Patient in the ICU being managed for UTI and probable sepsis with associated respiratory failure -WBC down to 15.5 on 01/04, compared to 49.4 on admission -Blood cultures growing Staphylococcus Auricularis, pansensitive -Lactic acid elevated at 2.2 on 01/03 -Continue antibiotics as below -Monitor I's and O's -Continue Telemetry Zosyn 3.375 IV every 6 hours Levaquin 750 mg IV every 48 hours DC'd fluids on 01/03, previously was receiving NS @ 100 mls/hr IV Zofran 4 mg IV every 6 hours Tylenol 650 mg by mouth every 4 hours when necessary temperature greater than 101F (3) COPD exacerbation Status: Acute Plan: DuoNeb every 6 hours scheduled Albuterol nebulizer every 2 hours when necessary shortness of breath Budesonide 0.5mg nebulizer q12hrs DC'd Solu-Medrol 40 mg every 12 hours on 01/05 -Changed to by mouth prednisone 40 mg twice a day - -Supplemental oxygen -BIPAP at night, uses this at home normally (4) UTI (urinary tract infection) Status: Acute Plan: Urine cultures growing Proteus mirabilis, sensitive to Zosyn See antibiotics above (5) DANE (acute kidney injury) Status: Acute Plan: -Creatinine elevated as high as 1.85, now down to 1.54 on 01/05 -Baseline of 1.08 in 2016 -Good urine output of 1146 ml in the last 24 hours -Renal ultrasound had poor visualization of the left kidney, but otherwise normal - no hydronephrosis or stones -No longer on fluids, discontinued on 01/04 -Continue to monitor daily BMPs (6) Chronic Medical Problems Status: Chronic Plan: COPD: Hold albuterol inhaler, continue albuterol and DuoNeb nebulizers with Pulmicort nebulizers Diabetes: Medium SSI Hypertension: Holding amlodipine 2.5 mg by mouth daily Hyperlipidemia: Hold Atorvastatin Hypothyroidism: Continue Levothyroxine 50 g by mouth daily Schizoaffective disorder: Have been holding home Abilify 2 mg daily since admission Edema: Held home furosemide 20 mg by mouth twice a day due to low/normotensive blood pressures. Received a dose of Bumex 1 mg IV on 01/03 and second dose on 01/04 per critical care. (7) FEN/DVT PPX/GI PPX/Nursing Orders Status: Acute Plan: Fluids: Fluids were d/c'd on 01/03 Electrolytes: Monitor and replace as needed Nutrition: 1800 ADA diet, tolerating well DVT Prophylaxis: Heparin subcutaneous Q8h, bilateral SCDs GI Prophylaxis: Protonix 40mg daily, changed from IV to PO on 01/05 as is tolerating PO (Kailyn Zamarripa MD) Problem Qualifiers (1) UTI (urinary tract infection): Qualified Code: N39.0 - Urinary tract infection without hematuria, site unspecified Kailyn Zamarripa MD Jan 05, 2017 11:37 Carolyne Holm MD Jan 05, 2017 13:17
--- NOTE | 2017-01-05 14:49 | HHI.FPPN ---
Addendum to progress note ADDENDUM Reason for addendum: Additonal documentation Additional information OFF-SERVICE NOTES 66-year-old legally blind male with a past medical history significant for pneumonia, COPD, hyperkalemia, GERD, edema, schizoaffective disorder, hypertension, hypothyroidism, depression, coronary artery disease, sleep apnea, colostomy, constipation, vitamin D deficiency, TB, Parkinson's, and dementia presented in altered mental status with signs and symptoms concerning for severe sepsis secondary to pneumonia and UTI. Patient was admitted on 12/31 for treatment with IV antibiotics and fluids, and was transferred to the ICU on 01/01 secondary to hypercapnic respiratory failure where he was intubated and sedated. Patient was successfully extubated on 01/03 and is doing well on 4 L by VT. He's currently on IV Zosyn and IV Levaquin. He remains in the ICU because he requires BiPAP at night and can be monitored more closely. However, the intensivists have signed off on his management and are available for reconsult if needed. Elvie Deo MD R1 Jan 05, 2017 14:49
[2017-01-05] MEDS: predniSONE 20 MG TAB PO SCH (21:47)
[2017-01-06] VITALS (22 sets, daily range): BP systolic 147–181; BP diastolic 71–94; PULSE 72–93; RESP 9–27; TEMP 98–99.1; O2SAT 87–96
[2017-01-06] MEDS: PIPERACIL-TAZO 3.375 GM PREMIX 50 ML IV SCH ×4 (00:20→18:54)
[2017-01-06 03:22] LABS: AUTOMATED NEUTROPHIL # 17.1 TH/MM3 (1.8-7.7); BASOPHIL % 0.1 % (0.0-2.0); EOSINOPHIL # 0.2 TH/MM3 (0-0.4); HEMATOCRIT 41.2 % (39.0-51.0); LYMPH % 5.5 % (9.0-44.0); LYMPHOCYTE # 1.1 TH/MM3 (1.0-4.8); MEAN CORPUSCULAR HEMOGLOBIN 31.9 PG (27.0-34.0); MEAN CORPUSCULAR HGB CONC 34.3 % (32.0-36.0); MONO % 5.6 % (0.0-8.0); NEUT % 87.8 % (16.0-70.0); PLATELET COUNT 285 TH/MM3 (150-450); RED BLOOD COUNT 4.43 MIL/MM3 (4.50-5.90); RED CELL DISTRIBUTION WIDTH 17.3 % (11.6-17.2); WHITE BLOOD COUNT 19.5 TH/MM3 (4.0-11.0)
[2017-01-06 03:26] LABS: HEMO FLAGS AUTO DIFF
[2017-01-06 03:46] LABS: ANION GAP 5 MEQ/L (5-15); AST (GOT) 31 U/L (15-37); BICARBONATE 35.3 MEQ/L (21.0-32.0); BLOOD UREA NITROGEN 36 MG/DL (7-18); CHLORIDE 106 MEQ/L (98-107); GLOMERULAR FILTRATION RATE 44 ML/MIN (>89); POTASSIUM 4.8 MEQ/L (3.5-5.1); SODIUM (NA) 146 MEQ/L (136-145)
[2017-01-06 03:49] LABS: ALKALINE PHOSPHATASE 69 U/L (45-117); ALT (GPT) 80 U/L (12-78); TOTAL BILIRUBIN ADULT 0.5 MG/DL (0.2-1.0)
[2017-01-06] MEDS: INSULIN NovoLIN REGULAR SUPPLEMENTAL SCALE SQ SCH ×6 (04:00→20:00)
[2017-01-06] MEDS: CHLORHEXIDINE GLUCONATE 2 % 1 PACK (2 CLOTHS)(taper/protocol) TOPICAL SCH (04:00)
[2017-01-06] MEDS: RESP: ALBUTEROL 2.5 MG/IPRATROPIUM 0.5 MG NEB (SCH) INH ×4 (04:19→21:36)
[2017-01-06 04:32] LABS: SCAN/DIFF AUTO DIFF CONFIRMED
[2017-01-06] MEDS: LEVOTHYROXINE SODIUM 50 MCG TAB PO SCH (06:06)
[2017-01-06] MEDS: HEPARIN SODIUM - SQ 10,000 UNITS/ML VIAL SQ SCH ×3 (06:06→21:04)
[2017-01-06] MEDS: RESP: BUDESONIDE 0.5 MG/2 ML NEB NEB SCH ×2 (08:43→21:36)
[2017-01-06] MEDS: SODIUM CHLORIDE 0.9% FLUSH 10 ML FLUSH IVF SCH (08:56)
[2017-01-06] MEDS: CHLORHEXIDINE 0.12% (ORAL KIT) 15 ML CUP MT SCH ×2 (08:56→20:00)
[2017-01-06] MEDS: DOCUSATE SODIUM 100 MG/10 ML UDC PO SCH ×2 (08:56→21:04)
[2017-01-06] MEDS: SODIUM CHLORIDE 0.9% FLUSH 10 ML FLUSH IV FLUSH SCH ×2 (08:56→21:04)
[2017-01-06] MEDS: SENNOSIDES SYRUP 8.8 MG/5 ML CUP PO SCH ×2 (08:57→21:04)
[2017-01-06] MEDS: predniSONE 20 MG TAB PO SCH ×2 (08:57→21:04)
[2017-01-06] MEDS ORDERED: PANTOPRAZOLE SOD 40 MG DELAYED RELEASE TAB PO SCH (09:00)
[2017-01-06] MEDS: LEVOFLOXACIN 750 MG PREMIX INJ 150 ML IV SCH (12:52)
--- NOTE | 2017-01-06 14:42 | HHI.FPPN ---
Subjective Remarks No acute events, resting in bed. On BiPAP during exam. Reports feeling "90% back to normal". He reports significantly improved breathing. He continues to have coughing but it has decreased. He has sputum production but it is decreasing. (Marcelo Wheeler MD R2) Objective Vitals Vital Signs Date Time Temp Pulse Resp B/P Pulse Ox O2 Delivery O2 Flow Rate FiO2 01/06/17 13:00 74 23 160/77 91 01/06/17 12:00 98.3 72 15 169/78 90 01/06/17 12:00 72 01/06/17 11:00 76 24 150/82 91 01/06/17 10:00 89 16 147/73 91 01/06/17 10:00 87 01/06/17 09:17 92 Nasal Cannula 1.00 01/06/17 09:00 93 25 174/86 90 01/06/17 08:43 96 Nasal Cannula 1.00 01/06/17 08:00 74 01/06/17 08:00 98.7 74 12 167/80 01/06/17 07:00 80 14 172/84 96 01/06/17 06:00 79 01/06/17 06:00 78 9 169/86 96 01/06/17 05:00 85 27 180/88 87 01/06/17 04:00 79 01/06/17 04:00 98.5 79 14 179/92 93 01/06/17 02:00 76 01/06/17 01:20 93 50 01/06/17 00:00 85 01/06/17 00:00 98.0 85 16 181/94 92 01/05/17 22:21 93 50 01/05/17 22:00 97 01/05/17 20:47 91 Nasal Cannula 5.00 01/05/17 20:00 92 01/05/17 20:00 97.8 92 27 148/75 91 01/05/17 18:00 93 01/05/17 16:00 84 01/05/17 16:00 98.3 84 28 152/72 92 I/O 01/05/17 01/05/17 01/05/17 01/06/17 01/06/17 01/06/17 07:00 15:00 23:00 07:00 15:00 23:00 Intake Total 155 ml 592 ml 276 ml 337 ml Output Total 250 ml 650 ml 950 ml 850 ml Balance -95 ml -58 ml -674 ml -513 ml Intake Oral 80 ml 500 ml 200 ml 120 ml IV Total 75 ml 92 ml 76 ml 217 ml Output Urine Total 350 ml 850 ml 650 ml Stool Total 250 ml 300 ml 100 ml 200 ml # Voids 2 2 (Marcelo Wheeler MD R2) Result Diagram: 01/06/17 0230 01/06/17 0230 Imaging Last 72 hours Impressions Chest X-Ray 01/05/17 0600 Signed Impressions: Service Date/Time: Friday, January 05, 2017 03:28 - CONCLUSION: Left basilar opacity is present may be due to a combination of consolidation and or pleural effusion. Vikash Cuevas MD Objective Remarks O. CONSTITUTIONAL/GEN: Currently using BiPAP, no distress, lying in bed, pleasant LUNGS: CTAB, transmitted sounds from BiPAP CARDIOVASCULAR: Regular rate and regular rhythm, without murmur or gallop. No significant edema GI/ABD: soft without masses, without organomegaly. Colostomy NEURO: No focal deficits SKIN: color normal, no rashes noted HEME/LYMPH: no bruising, petechia or significant adenopathy MUSC: Extremities are normal in appearance Procedures Intubation 01/01/17 Extubation 01/03/17 (Marcelo Wheeler MD R2) A/P Assessment and Plan 66-year-old male with multiple medical problems presented with altered mental status with signs and symptoms concerning for severe sepsis secondary to pneumonia and UTI. Patient was admitted for treatment with IV antibiotics and fluids, and was transferred to the ICU secondary to hypercapnic respiratory failure where he was intubated and sedated. Patient was extubated on 01/03 and is doing well on MI. Discussed with Dr. Parish Diamond Discharge Planning Pending stabilization of respiratory status. (Marcelo Wheeler MD R2) Attending Attestation Patient seen and examined. Case reviewed and discussed with the resident team. Agree with plan of care as discussed with me and documented in the resident note. (Carolyne Holm MD) Problem List: (1) COPD exacerbation Status: Acute Plan: Requiring 1 L by nasal cannula this morning, required 5 L yesterday - DuoNeb every 6 hours scheduled - Albuterol nebulizer every 2 hours when necessary shortness of breath - Budesonide 0.5mg nebulizer q12hrs - DC'd Solu-Medrol 40 mg every 12 hours, 12/31-01/05 - Changed to by mouth prednisone 40 mg twice a day, started 01/05/17 - Supplemental oxygen as needed - BIPAP at night, uses this at home normally (2) UTI (urinary tract infection) Status: Acute Plan: Urine cultures growing Proteus mirabilis, sensitive to Zosyn - Zosyn started 12/31 (3) DNAE (acute kidney injury) Status: Acute Plan: Creatinine elevated as high as 1.85, now down to 1.57. Baseline of 1.08 in 2016. Urine output 1850 in last 24 hrs. Renal ultrasound had poor visualization of the left kidney, but otherwise normal - no hydronephrosis or stones. - Avoid nephrotoxic agents - Encourage PO hydration - Monitor kidney function (4) Chronic Medical Problems Status: Chronic Plan: Diabetes: Medium SSI Hypertension: Amlodipine 2.5 mg daily restarted Hypothyroidism: Continue Levothyroxine 50 g by mouth daily Schizoaffective disorder: Abilify 2 mg daily (5) FEN/DVT PPX/GI PPX/Nursing Orders Status: Acute Plan: Fluids: PO fluids Electrolytes: Monitor and replace as needed Nutrition: 1800 ADA diet, tolerating well DVT Prophylaxis: Heparin subcutaneous Q8h, bilateral SCDs (Marcelo Wheeler MD R2) Problem Qualifiers (1) UTI (urinary tract infection): Qualified Code: N39.0 - Urinary tract infection without hematuria, site unspecified Marcelo Wheeler MD R2 Jan 06, 2017 14:42 Carolyne Holm MD Jan 06, 2017 15:09
[2017-01-06] MEDS ORDERED: PILL SPLITTER OTHER PRN (15:00)
[2017-01-06] MEDS: amLODIPine BESYLATE 5 MG TAB PO SCH (15:42)
[2017-01-06] MEDS: ARIPiprazole 2 MG TAB PO SCH (21:04)
[2017-01-07] VITALS (23 sets, daily range): BP systolic 126–169; BP diastolic 57–85; PULSE 78–96; RESP 9–29; TEMP 98.2–99.5; O2SAT 91–99
[2017-01-07] MEDS: PIPERACIL-TAZO 3.375 GM PREMIX 50 ML IV SCH ×4 (00:40→17:20)
[2017-01-07] MEDS: RESP: ALBUTEROL 2.5 MG/IPRATROPIUM 0.5 MG NEB (SCH) INH ×4 (03:37→19:45)
[2017-01-07] MEDS: INSULIN NovoLIN REGULAR SUPPLEMENTAL SCALE SQ SCH ×6 (04:00→20:49)
[2017-01-07] MEDS: LEVOTHYROXINE SODIUM 50 MCG TAB PO SCH (05:06)
[2017-01-07] MEDS: HEPARIN SODIUM - SQ 10,000 UNITS/ML VIAL SQ SCH ×3 (05:07→22:39)
[2017-01-07 06:35] LABS: HEMATOCRIT 39.8 % (39.0-51.0); MEAN CELL VOLUME 93.8 FL (80.0-100.0); MEAN CORPUSCULAR HGB CONC 34.1 % (32.0-36.0); PLATELET COUNT 253 TH/MM3 (150-450); RED BLOOD COUNT 4.24 MIL/MM3 (4.50-5.90); RED CELL DISTRIBUTION WIDTH 17.6 % (11.6-17.2); REVIEW FLAG FINAL; WHITE BLOOD COUNT 18.1 TH/MM3 (4.0-11.0)
[2017-01-07 07:01] LABS: BICARBONATE 32.6 MEQ/L (21.0-32.0); POTASSIUM 6.3 MEQ/L (3.5-5.1)
[2017-01-07] MEDS: CHLORHEXIDINE 0.12% (ORAL KIT) 15 ML CUP MT SCH ×2 (08:00→20:00)
[2017-01-07] MEDS: SODIUM CHLORIDE 0.9% FLUSH 10 ML FLUSH IV FLUSH SCH ×2 (08:25→20:50)
[2017-01-07] MEDS: SENNOSIDES SYRUP 8.8 MG/5 ML CUP PO SCH ×2 (08:26→20:50)
[2017-01-07] MEDS: DOCUSATE SODIUM 100 MG/10 ML UDC PO SCH ×2 (08:26→20:50)
[2017-01-07] MEDS: amLODIPine BESYLATE 5 MG TAB PO SCH (08:26)
[2017-01-07] MEDS: predniSONE 20 MG TAB PO SCH ×2 (08:26→20:50)
[2017-01-07] MEDS ORDERED: CALCIUM GLUCONATE INJ 1 GM in DEXTROSE 5% IN WATER 100ML INJ 100 ML IV ONE ×2 (09:00)
[2017-01-07] MEDS: SODIUM CHLORIDE 0.9% FLUSH 10 ML FLUSH IVF SCH (09:00)
[2017-01-07] MEDS ORDERED: DEXTROSE 10% IV ONE (09:00)
[2017-01-07] MEDS ORDERED: INSULIN REGULAR IV ONE (09:00)
[2017-01-07] MEDS: RESP: BUDESONIDE 0.5 MG/2 ML NEB NEB SCH ×2 (09:01→19:45)
--- NOTE | 2017-01-07 09:05 | HHI.FPPN ---
Subjective Remarks Patient seen and examined this morning. No acute events overnight. BP up to 179/ 92 and started on Amlodipine. Patient states his breathing is improved and he "feels like a new man" since his admission. He is currently saturating at 96% on 6L during exam. He has no complaints and denies any fevers, chills, chest pain, NVD, ABD pain, or calf tenderness. (Justin Lugo MD R1) Objective Vitals Vital Signs Date Time Temp Pulse Resp B/P Pulse Ox O2 Delivery O2 Flow Rate FiO2 01/07/17 06:00 80 01/07/17 04:19 93 50 01/07/17 04:00 79 01/07/17 04:00 98.7 79 25 146/70 93 01/07/17 02:00 78 01/07/17 01:14 93 60 01/07/17 00:00 98.2 79 9 142/69 92 01/07/17 00:00 79 01/06/17 23:22 94 50 01/06/17 22:00 85 01/06/17 21:36 94 Simple Mask 12.00 01/06/17 21:36 92 60 01/06/17 20:00 93 01/06/17 20:00 98.5 93 10 147/71 92 01/06/17 19:00 95 Simple Mask 10.00 01/06/17 18:00 86 01/06/17 16:00 99.1 93 13 148/72 93 01/06/17 16:00 93 01/06/17 15:00 85 22 159/81 92 01/06/17 14:00 78 01/06/17 14:00 78 23 157/74 90 01/06/17 13:00 74 23 160/77 91 01/06/17 12:00 98.3 72 15 169/78 90 01/06/17 12:00 72 01/06/17 11:00 90 Simple Mask 10.00 01/06/17 11:00 76 24 150/82 91 01/06/17 10:00 89 16 147/73 91 01/06/17 10:00 87 01/06/17 09:17 92 Nasal Cannula 1.00 01/06/17 09:00 93 25 174/86 90 I/O 01/06/17 01/06/17 01/06/17 01/07/17 01/07/17 6/6/17 07:00 15:00 23:00 07:00 15:00 23:00 Intake Total 337 ml 593 ml 60 ml 110 ml Output Total 850 ml 775 ml 400 ml 350 ml Balance -513 ml -182 ml -340 ml -240 ml Intake Oral 120 ml 444 ml IV Total 217 ml 149 ml 60 ml 110 ml Output Urine Total 650 ml 775 ml 350 ml 300 ml Stool Total 200 ml 0 ml 50 ml 50 ml # Bowel Movements 0 (Justin Lugo MD R1) Result Diagram: 01/07/1743401/07/17434 Objective Remarks CONSTITUTIONAL/GEN: Currently 6L via nasal canula, no distress, lying in bed, pleasant LUNGS: CTAB with no CRW. Multiple coughing episodes patient attributes to just having had breakfast. CARDIOVASCULAR: Regular rate and regular rhythm, without murmur or gallop. No significant edema GI/ABD: Soft without masses, without organomegaly. +BS. Colostomy in place NEURO: No focal deficits SKIN: Color normal, no rashes noted HEME/LYMPH: No bruising, petechia or significant adenopathy MUSC: Extremities are normal in appearance Procedures Intubation 01/01/17 Extubation 01/03/17 (Justin Lugo MD R1) A/P Assessment and Plan 66-year-old male with multiple medical problems presented with altered mental status with signs and symptoms concerning for severe sepsis secondary to pneumonia and UTI. Patient was admitted for treatment with IV antibiotics and fluids, and was transferred to the ICU secondary to hypercapnic respiratory failure where he was intubated and sedated. Patient was extubated on 01/03 and is doing well on OK. Discussed with Dr. Parish Diamond Discharge Planning Pending stabilization of respiratory status. (Justin Lugo MD R1) Attending Attestation Patient seen and examined. Case reviewed and discussed with the resident team. Agree with plan of care as discussed with me and documented in the resident note. (Carolyne Holm MD) Problem List: (1) COPD exacerbation Status: Acute Plan: Requiring 1 L by nasal cannula this morning, required 5 L yesterday - DuoNeb every 6 hours scheduled - Albuterol nebulizer every 2 hours when necessary shortness of breath - Budesonide 0.5mg nebulizer q12hrs - DC'd Solu-Medrol 40 mg every 12 hours, 12/31-01/05 - Changed to by mouth prednisone 40 mg twice a day, started 01/05/17 - Supplemental oxygen as needed - BIPAP at night, uses this at home normally (2) UTI (urinary tract infection) Status: Acute Plan: Urine cultures growing Proteus mirabilis, sensitive to Zosyn - Zosyn started 12/31 (3) Hyperkalemia Status: Acute Plan: Patient found to be hyperkalemic to 6.3 (up from 4.8) on morning laboratory studies. Patient denies any ABD cramps, muscle weakness, or palpitations at this time. Due to his DANE, medical will treat hyperkalemia agressively at this time. -EKG: pending -Calcium gluconate 1g IV -D10 500mL with 10 units of Regular Insulin added to be infused over 1 hour; discussed with pharmacy -Repeat BMP at 1100 to evaluate potassium and renal function -Discussed with nursing staff to monitor for signs of hyperkalemia and hypoglycemia given the treatment (4) DANE (acute kidney injury) Status: Acute Plan: Creatinine elevated as high as 1.85, now down to 1.54. Baseline of 1.08 in 2016. Urine output 1525 in last 24 hrs. Renal ultrasound had poor visualization of the left kidney, but otherwise normal - no hydronephrosis or stones. - Avoid nephrotoxic agents - Encourage PO hydration - Monitor kidney function (5) Chronic Medical Problems Status: Chronic Plan: Diabetes: Medium SSI Hypertension: Amlodipine 2.5 mg daily restarted Hypothyroidism: Continue Levothyroxine 50 g by mouth daily Schizoaffective disorder: Abilify 2 mg daily (6) FEN/DVT PPX/GI PPX/Nursing Orders Status: Acute Plan: Fluids: PO fluids Electrolytes: Monitor and replace as needed Nutrition: 1800 ADA diet, tolerating well DVT Prophylaxis: Heparin subcutaneous Q8h, bilateral SCDs (Justin Lugo MD R1) Problem Qualifiers (1) UTI (urinary tract infection): Qualified Code: N39.0 - Urinary tract infection without hematuria, site unspecified Justin Lugo MD R1 Jan 07, 2017 09:05 Carolyne Holm MD Jan 07, 2017 15:52
[2017-01-07 12:51] LABS: BICARBONATE 32.4 MEQ/L (21.0-32.0); POTASSIUM 4.2 MEQ/L (3.5-5.1)
[2017-01-07 20:47] LABS: BICARBONATE 34.3 MEQ/L (21.0-32.0); POTASSIUM 4.2 MEQ/L (3.5-5.1)
[2017-01-07] MEDS: ARIPiprazole 2 MG TAB PO SCH (20:50)
--- NOTE | 2017-01-07 22:00 | EKG ---
Date Performed: 01/07/2017 Time Performed: 09:17:30 PTAGE: 66 years EKG: Sinus rhythm POSSIBLE LEFT ATRIAL ENLARGEMENT PROBABLE INFERIOR MYOCARDIAL INFARCTION , PROBABLY OLD Since previo us tracing, no significant change noted ABNORMAL ECG PREVIOUS TRACING : 12/31/2016 23.22 DOCTOR: Ashley Bonilla Interpretating Date/Time 01/07/2017 21:57:30
[2017-01-08] VITALS (18 sets, daily range): BP systolic 130–162; BP diastolic 61–81; PULSE 61–88; RESP 19–24; TEMP 98.4–98.9; O2SAT 92–98
[2017-01-08] MEDS: INSULIN NovoLIN REGULAR SUPPLEMENTAL SCALE SQ SCH ×7 (00:53→23:41)
[2017-01-08] MEDS: PIPERACIL-TAZO 3.375 GM PREMIX 50 ML IV SCH ×2 (00:53→05:09)
[2017-01-08] MEDS: RESP: ALBUTEROL 2.5 MG/IPRATROPIUM 0.5 MG NEB (SCH) INH ×2 (01:36→10:00)
[2017-01-08] MEDS: LEVOTHYROXINE SODIUM 50 MCG TAB PO SCH (05:09)
[2017-01-08] MEDS: HEPARIN SODIUM - SQ 10,000 UNITS/ML VIAL SQ SCH ×3 (05:09→23:39)
[2017-01-08 05:41] LABS: AUTOMATED NEUTROPHIL # 13.5 TH/MM3 (1.8-7.7); BASOPHIL % 0.1 % (0.0-2.0); EOSINOPHIL # 0.2 TH/MM3 (0-0.4); EOSINOPHIL % 1.1 % (0.0-4.0); HEMATOCRIT 40.1 % (39.0-51.0); LYMPH % 6.2 % (9.0-44.0); MEAN CELL VOLUME 94.6 FL (80.0-100.0); MEAN CORPUSCULAR HEMOGLOBIN 31.4 PG (27.0-34.0); MEAN CORPUSCULAR HGB CONC 33.2 % (32.0-36.0); MONO % 4.9 % (0.0-8.0); NEUT % 87.7 % (16.0-70.0); PLATELET COUNT 225 TH/MM3 (150-450); RED BLOOD COUNT 4.24 MIL/MM3 (4.50-5.90); RED CELL DISTRIBUTION WIDTH 17.5 % (11.6-17.2); WHITE BLOOD COUNT 15.4 TH/MM3 (4.0-11.0)
[2017-01-08 05:44] LABS: HEMO FLAGS AUTO DIFF
[2017-01-08 06:06] LABS: BICARBONATE 32.3 MEQ/L (21.0-32.0); POTASSIUM 5.4 MEQ/L (3.5-5.1)
[2017-01-08 07:04] LABS: BANDS 3 % (0-6); EOSINOPHILS 1 % (0-4); MYELOCYTES 5 % (0-0); NEUTROPHIL # MANUAL DIFF 12.9 TH/MM3 (1.8-7.7); POLYS (SEG NEUTROPHILS) 76 % (16-70); WBC DIFF SAMPLE 100
[2017-01-08 07:05] LABS: PLATELET ESTIMATE SMEAR NORMAL (NORMAL); PLATELET MORPHOLOGY NORMAL (NORMAL); SCAN/DIFF FINAL DIFF MANUAL; TARGET CELLS 1+ (NORMAL)
[2017-01-08] MEDS: CHLORHEXIDINE 0.12% (ORAL KIT) 15 ML CUP MT SCH ×2 (08:00→20:00)
[2017-01-08] MEDS: SENNOSIDES SYRUP 8.8 MG/5 ML CUP PO SCH ×2 (08:36→20:08)
[2017-01-08] MEDS: predniSONE 20 MG TAB PO SCH ×2 (08:36→20:08)
[2017-01-08] MEDS: DOCUSATE SODIUM 100 MG/10 ML UDC PO SCH ×2 (08:36→20:08)
[2017-01-08] MEDS: amLODIPine BESYLATE 5 MG TAB PO SCH (08:36)
[2017-01-08] MEDS: SODIUM CHLORIDE 0.9% FLUSH 10 ML FLUSH IV FLUSH SCH ×2 (09:00→20:08)
[2017-01-08] MEDS: SODIUM CHLORIDE 0.9% FLUSH 10 ML FLUSH IVF SCH (09:00)
[2017-01-08] MEDS: RESP: BUDESONIDE 0.5 MG/2 ML NEB NEB SCH ×2 (10:38→20:21)
--- NOTE | 2017-01-08 16:03 | HHI.FPPN ---
Subjective Remarks Since and examined this morning. No acute events overnight with VSS. This morning Mr. Tamez states he feels well and is "back to his normal." He states his breathing is much better compared to admission. He is able to eat and drink appropriately without swallowing difficulty. He has no other complaints and denies any fevers, chills, SOB, chest pain, NVD, and calf tenderness. (Justin Lugo MD R1) Objective Vitals Vital Signs Date Time Temp Pulse Resp B/P Pulse Ox O2 Delivery O2 Flow Rate FiO2 01/08/17 14:00 66 01/08/17 12:00 98.6 72 22 162/81 97 01/08/17 12:00 66 01/08/17 10:40 95 Nasal Cannula 6.00 01/08/17 10:00 66 01/08/17 09:00 97 40 01/08/17 08:00 98.5 61 22 147/77 97 01/08/17 08:00 66 01/08/17 06:00 62 01/08/17 04:20 94 40 01/08/17 04:00 64 01/08/17 04:00 98.9 64 19 151/72 95 01/08/17 02:00 70 01/08/17 01:35 95 45 01/08/17 00:00 98.5 71 24 130/61 93 01/08/17 00:00 71 01/07/17 22:00 83 01/07/17 21:52 94 50 01/07/17 20:00 98.5 78 27 138/69 94 01/07/17 20:00 78 01/07/17 19:45 93 Nasal Cannula 6.00 01/07/17 19:00 93 Nasal Cannula 6.00 01/07/17 18:00 80 01/07/17 16:00 90 01/07/17 16:00 98.8 83 29 126/57 93 I/O 01/07/17 01/07/17 01/07/17 01/08/17 01/08/17 01/08/17 07:00 15:00 23:00 07:00 15:00 23:00 Intake Total 110 ml 1418 ml 480 ml 410 ml 320 ml Output Total 350 ml 570 ml 550 ml 400 ml 525 ml Balance -240 ml 848 ml -70 ml 10 ml -205 ml Intake Oral 666 ml 480 ml 240 ml 320 ml IV Total 110 ml 752 ml 170 ml Output Urine Total 300 ml 550 ml 550 ml 400 ml 475 ml Stool Total 50 ml 20 ml 50 ml (Justin Lugo MD R1) Result Diagram: 01/08/1742601/08/17426 Objective Remarks CONSTITUTIONAL/GEN: Currently on BiPAP, no distress, lying in bed, pleasant LUNGS: CTAB with no CRW. Upper respiratory sounds heard secondary to the BiPAP machine. CARDIOVASCULAR: Regular rate and regular rhythm, without murmur or gallop. No significant edema GI/ABD: Soft without masses, without organomegaly. +BS. Colostomy CDI with nonbloody output. NEURO: No focal deficits SKIN: Color normal, no rashes noted HEME/LYMPH: No bruising, petechia or significant adenopathy MUSC: Extremities are normal in appearance Procedures Intubation 01/01/17 Extubation 01/03/17 (Justin Lugo MD R1) A/P Assessment and Plan 66-year-old male with multiple medical problems presented with altered mental status with signs and symptoms concerning for severe sepsis secondary to pneumonia and UTI. Patient was admitted for treatment with IV antibiotics and fluids, and was transferred to the ICU secondary to hypercapnic respiratory failure where he was intubated and sedated. Patient was extubated on 01/03 and is doing well on NC during the day and BiPAP at night. Discharge Planning Pending stabilization of respiratory status. (Justin Lugo MD R1) Attending Attestation Patient seen and examined. Case reviewed and discussed with the resident team. Agree with plan of care as discussed with me and documented in the resident note. (Carolyne Holm MD) Problem List: (1) COPD exacerbation Status: Acute Plan: Requiring 1 L by nasal cannula this morning, required 5 L yesterday - DuoNeb every 6 hours scheduled - Albuterol nebulizer every 2 hours when necessary shortness of breath - Budesonide 0.5mg nebulizer q12hrs - DC'd Solu-Medrol 40 mg every 12 hours, 12/31-01/05 - ABX as below - Changed to by mouth prednisone 40 mg twice a day, started 01/05/17 - Supplemental oxygen as needed - BIPAP at night, uses this at home normally (2) UTI (urinary tract infection) Status: Acute Plan: Urine cultures growing Proteus mirabilis, sensitive to Zosyn - Zosyn q6h and Levaquin q48h started 12/31, DC on 01/08 (7 Days of treatement) (3) Hyperkalemia Status: Acute Plan: Patient found to be hyperkalemic to 6.3 (up from 4.8) on morning laboratory studies. Patient denies any ABD cramps, muscle weakness, or palpitations at this time. Due to his DANE, medical will treat hyperkalemia agressively at this time. Per chart review, patient noted to be hyperkalemic on previous admissions. 01/08 -EKG 01/08/17: stable with no QRS or T wave changes -Calcium gluconate 1g IV -D10 500mL with 10 units of Regular Insulin added to be infused over 1 hour; discussed with pharmacy -Repeat BMP at 1100 to evaluate potassium and renal function -Discussed with nursing staff to monitor for signs of hyperkalemia and hypoglycemia given the treatment 01/09 -Potassium increased to 5.4 -Repeat BMP at 1600 -Team will monitor repeat potassium and treat as indicated (4) DANE (acute kidney injury) Status: Acute Plan: Creatinine elevated as high as 1.85, now down to 1.54. Baseline of 1.08 in 2016. Urine output 1525 in last 24 hrs. Renal ultrasound had poor visualization of the left kidney, but otherwise normal - no hydronephrosis or stones. - Avoid nephrotoxic agents - Encourage PO hydration - Monitor kidney function (5) Chronic Medical Problems Status: Chronic Plan: Diabetes: Medium SSI Hypertension: Amlodipine 2.5 mg daily restarted Hypothyroidism: Continue Levothyroxine 50 g by mouth daily Schizoaffective disorder: Abilify 2 mg daily (6) FEN/DVT PPX/GI PPX/Nursing Orders Status: Acute Plan: Fluids: PO fluids Electrolytes: Monitor and replace as needed Nutrition: 1800 ADA diet, tolerating well DVT Prophylaxis: Heparin subcutaneous Q8h, bilateral SCDs (Justin Lugo MD R1) Problem Qualifiers (1) UTI (urinary tract infection): Qualified Code: N39.0 - Urinary tract infection without hematuria, site unspecified Justin Lugo MD R1 Jan 08, 2017 16:03 Carolyne Holm MD Jan 08, 2017 16:06
[2017-01-08 19:06] LABS: BICARBONATE 34.8 MEQ/L (21.0-32.0)
[2017-01-08 19:07] LABS: POTASSIUM 4.3 MEQ/L (3.5-5.1)
[2017-01-08] MEDS: ARIPiprazole 2 MG TAB PO SCH (20:08)
[2017-01-08] MEDS: RESP: ALBUTEROL 2.5 MG/3 ML NEB (PRN) NEB (20:21)
[2017-01-09] VITALS (17 sets, daily range): BP systolic 122–162; BP diastolic 59–98; PULSE 71–96; RESP 14–24; TEMP 97.8–98.9; O2SAT 93–99
[2017-01-09] MEDS: INSULIN NovoLIN REGULAR SUPPLEMENTAL SCALE SQ SCH ×5 (04:00→20:00)
[2017-01-09] MEDS: HEPARIN SODIUM - SQ 10,000 UNITS/ML VIAL SQ SCH ×2 (05:09→12:45)
[2017-01-09] MEDS: LEVOTHYROXINE SODIUM 50 MCG TAB PO SCH (05:09)
[2017-01-09 05:36] LABS: HEMATOCRIT 39.4 % (39.0-51.0); MEAN CELL VOLUME 94.3 FL (80.0-100.0); MEAN CORPUSCULAR HEMOGLOBIN 31.8 PG (27.0-34.0); MEAN CORPUSCULAR HGB CONC 33.7 % (32.0-36.0); PLATELET COUNT 234 TH/MM3 (150-450); RED BLOOD COUNT 4.18 MIL/MM3 (4.50-5.90); RED CELL DISTRIBUTION WIDTH 17.9 % (11.6-17.2); REVIEW FLAG FINAL; WHITE BLOOD COUNT 16.3 TH/MM3 (4.0-11.0)
[2017-01-09 05:58] LABS: BICARBONATE 32.3 MEQ/L (21.0-32.0)
[2017-01-09] MEDS: predniSONE 20 MG TAB PO SCH ×2 (07:31→20:42)
[2017-01-09] MEDS: amLODIPine BESYLATE 5 MG TAB PO SCH (07:32)
[2017-01-09] MEDS: SODIUM CHLORIDE 0.9% FLUSH 10 ML FLUSH IVF SCH (07:33)
[2017-01-09] MEDS: SENNOSIDES SYRUP 8.8 MG/5 ML CUP PO SCH ×2 (07:33→20:42)
[2017-01-09] MEDS: SODIUM CHLORIDE 0.9% FLUSH 10 ML FLUSH IV FLUSH SCH ×2 (07:33→20:42)
[2017-01-09] MEDS: DOCUSATE SODIUM 100 MG/10 ML UDC PO SCH ×2 (07:33→20:42)
[2017-01-09] MEDS: CHLORHEXIDINE 0.12% (ORAL KIT) 15 ML CUP MT SCH ×2 (07:34→20:00)
[2017-01-09] MEDS: RESP: BUDESONIDE 0.5 MG/2 ML NEB NEB SCH ×2 (07:52→19:36)
[2017-01-09] MEDS ORDERED: BUDE.5I NEB (13:44)
[2017-01-09] MEDS ORDERED: NEBULIZER/ADULT1 KIT (13:44)
[2017-01-09] MEDS ORDERED: ALBU0.08 NEB (13:44)
--- NOTE | 2017-01-09 13:45 | HHI.DCPOC ---
Discharge Care Plan Diagnosis: (1) COPD exacerbation (2) UTI (urinary tract infection) (3) Sepsis Goals to Promote Your Health * To prevent worsening of your condition and complications * To maintain your health at the optimal level Directions to Meet Your Goals Take your medications as prescribed Follow your dietary instruction Follow activity as directed Keep your appointments as scheduled Take your immunizations and boosters as scheduled If your symptoms worsen call your PCP, if no PCP go to Urgent Care Center or Emergency Room Smoking is Dangerous to Your Health. Avoid second hand smoke Call the 24-hour hour crisis hotline for domestic abuse at Justin Lugo MD R1 Jan 09, 2017 13:45
--- NOTE | 2017-01-09 14:07 | HHI.FF ---
Face to Face Verification Diagnosis: (1) COPD exacerbation (2) Sepsis (3) UTI (urinary tract infection) Physical Therapy Order: Evaluate and Treat I have seen patient Esteban Tamez on 01/09/17. My clinical findings support the need for the requested home health care services because: Ltd mobility - disease progression Patient has SOB Deconditioned w/ increased weakness Limited ability to care for self High risk of falls I certify that my clinical findings support that this patient is homebound because: Impaired cognitive ability/safety Hx COPD- exertion dyspnea/weakness Unsteady gait/balance Justin Lugo MD R1 Jan 09, 2017 14:07
[2017-01-09] MEDS ORDERED: PRED10 PO (14:17)
--- NOTE | 2017-01-09 16:28 | HHI.FPPN ---
Subjective Remarks Patient seen and examined this morning by medical team. No acute events overnight with vital signs stable. Patient reports he is doing well and feels "completely back to normal. "When presented with the plan for possible discharge today patient is agreeable. He currently has no complaints and denies any fevers, chills, shortness of breath, chest pain, NVD, abdominal pain, or calf tenderness. (Justin Lugo MD R1) Objective Vitals Vital Signs Date Time Temp Pulse Resp B/P Pulse Ox O2 Delivery O2 Flow Rate FiO2 01/09/17 14:00 96 01/09/17 13:50 Nasal Cannula 5.00 01/09/17 12:00 81 01/09/17 12:00 97.8 81 16 162/72 97 01/09/17 10:00 71 01/09/17 08:00 98.6 71 18 157/76 98 01/09/17 08:00 Nasal Cannula 6.00 01/09/17 08:00 71 01/09/17 07:52 99 Nasal Cannula 6.00 01/09/17 06:00 71 01/09/17 04:06 93 40 01/09/17 04:00 77 01/09/17 04:00 98.9 77 14 151/72 93 01/09/17 02:00 77 01/09/17 01:44 95 40 01/09/17 00:00 98.7 78 21 140/98 93 01/09/17 00:00 78 01/08/17 22:15 92 40 01/08/17 22:00 88 01/08/17 20:23 98 Nasal Cannula 6.00 01/08/17 20:00 98.4 82 20 137/65 96 01/08/17 20:00 82 01/08/17 19:00 98 Nasal Cannula 6.00 01/08/17 18:00 80 I/O 01/08/17 01/08/17 01/08/17 01/09/17 01/09/17 01/09/17 06:59 14:59 22:59 06:59 14:59 22:59 Intake Total 410 ml 320 ml 400 ml 720 ml Output Total 400 ml 525 ml 550 ml 500 ml 500 ml Balance 10 ml -205 ml -550 ml -100 ml 220 ml Intake Oral 240 ml 320 ml 400 ml 720 ml IV Total 170 ml 0 ml Output Urine Total 400 ml 475 ml 450 ml 500 ml 500 ml Stool Total 50 ml 100 ml (Justin Lugo MD R1) Result Diagram: 01/09/1740601/09/17406 Objective Remarks CONSTITUTIONAL/GEN: Currently on 6 L via nasal cannula, no distress, lying in bed, pleasant LUNGS: CTAB with no CRW. No increased work of breathing. CARDIOVASCULAR: Regular rate and regular rhythm, without murmur or gallop. No significant edema GI/ABD: Soft without masses, without organomegaly. +BS. Colostomy CDI with nonbloody output. Colostomy clean, dry, and intact. NEURO: No focal deficits SKIN: Color normal, no rashes noted HEME/LYMPH: No bruising, petechia or significant adenopathy MUSC: Extremities are normal in appearance Procedures Intubation 01/01/17 Extubation 01/03/17 (Justin Lugo MD R1) A/P Assessment and Plan 66-year-old male with multiple medical problems presented with altered mental status with signs and symptoms concerning for severe sepsis secondary to pneumonia and UTI. Patient was admitted for treatment with IV antibiotics and fluids, and was transferred to the ICU secondary to hypercapnic respiratory failure where he was intubated and sedated. Patient was extubated on 01/03 and is doing well on NC during the day and BiPAP at night. Discharge Planning Likely tomorrow to [facility] and rehabilitation. (Justin Lugo MD R1) Attending Attestation Patient seen and examined. Case reviewed and discussed with the resident team. Agree with plan of care as discussed with me and documented in the resident note. (Carolyne Holm MD) Problem List: (1) COPD exacerbation Status: Acute Plan: Requiring 1 L by nasal cannula this morning, required 5 L yesterday - DuoNeb every 6 hours scheduled - Albuterol nebulizer every 2 hours when necessary shortness of breath - Budesonide 0.5mg nebulizer q12hrs - DC'd Solu-Medrol 40 mg every 12 hours, 12/31-01/05 - Changed to by mouth prednisone 40 mg twice a day, started 01/05/17 - Patient to be discharged home on prednisone taper of 40 mg for 3 days, followed by 20 mg for 3 days, followed by 10 mg for 3 days - Supplemental oxygen as needed, currently saturating well on 5 L via nasal cannula. - BIPAP at night, uses this at home normally (2) UTI (urinary tract infection) Status: Acute Plan: Urine cultures growing Proteus mirabilis, sensitive to Zosyn - Zosyn q6h and Levaquin q48h started 12/31, DC on 01/08 (7 Days of treatement) (3) Hyperkalemia Status: Acute Plan: Patient found to be hyperkalemic to 6.3 (up from 4.8) on morning laboratory studies. Patient denies any ABD cramps, muscle weakness, or palpitations at this time. Due to his DANE, medical will treat hyperkalemia agressively at this time. Per chart review, patient noted to be hyperkalemic on previous admissions. 01/08 -EKG 01/08/17: stable with no QRS or T wave changes -Calcium gluconate 1g IV -D10 500mL with 10 units of Regular Insulin added to be infused over 1 hour; discussed with pharmacy -Repeat BMP at 1100 to evaluate potassium and renal function -Discussed with nursing staff to monitor for signs of hyperkalemia and hypoglycemia given the treatment 01/09 -Potassium increased to 5.4 -Repeat BMP at 1600 -Team will monitor repeat potassium and treat as indicated 01/10 -Potassium 5 -Continue to monitor (4) DANE (acute kidney injury) Status: Acute Plan: Creatinine elevated as high as 1.85, now down to 1.54. Baseline of 1.08 in 2016. Urine output 1525 in last 24 hrs. Renal ultrasound had poor visualization of the left kidney, but otherwise normal - no hydronephrosis or stones. - Avoid nephrotoxic agents - Encourage PO hydration - Monitor kidney function (5) Chronic Medical Problems Status: Chronic Plan: Diabetes: Medium SSI Hypertension: Amlodipine 2.5 mg daily restarted Hypothyroidism: Continue Levothyroxine 50 g by mouth daily Schizoaffective disorder: Abilify 2 mg daily (6) FEN/DVT PPX/GI PPX/Nursing Orders Status: Acute Plan: Fluids: PO fluids Electrolytes: Monitor and replace as needed Nutrition: 1800 ADA diet, tolerating well DVT Prophylaxis: Heparin subcutaneous Q8h, bilateral SCDs (Justin Lugo MD R1) Problem Qualifiers (1) UTI (urinary tract infection): Qualified Code: N39.0 - Urinary tract infection without hematuria, site unspecified Justin Lugo MD R1 Jan 09, 2017 16:27 Carolyne Holm MD Jan 09, 2017 17:56
[2017-01-09] MEDS: RESP: ALBUTEROL 2.5 MG/3 ML NEB (PRN) NEB (19:36)
[2017-01-09] MEDS: ARIPiprazole 2 MG TAB PO SCH (20:42)
[2017-01-10] VITALS (13 sets, daily range): BP systolic 142–184; BP diastolic 65–87; PULSE 71–88; RESP 8–23; TEMP 98.5–98.7; O2SAT 94–97
[2017-01-10] MEDS: HEPARIN SODIUM - SQ 10,000 UNITS/ML VIAL SQ SCH ×3 (00:04→12:38)
[2017-01-10] MEDS: INSULIN NovoLIN REGULAR SUPPLEMENTAL SCALE SQ SCH ×4 (04:00→12:00)
[2017-01-10] MEDS: LEVOTHYROXINE SODIUM 50 MCG TAB PO SCH (04:58)
[2017-01-10] MEDS: RESP: BUDESONIDE 0.5 MG/2 ML NEB NEB SCH (08:06)
[2017-01-10] MEDS: DOCUSATE SODIUM 100 MG/10 ML UDC PO SCH (08:16)
[2017-01-10] MEDS: amLODIPine BESYLATE 5 MG TAB PO SCH (08:16)
[2017-01-10] MEDS: predniSONE 20 MG TAB PO SCH (08:16)
[2017-01-10] MEDS: SENNOSIDES SYRUP 8.8 MG/5 ML CUP PO SCH (08:17)
--- NOTE | 2017-01-10 12:01 | HHI.FPPN ---
Subjective Remarks No acute events. On 5L nasal cannula, BIPAP overnight. Reports he is at his baseline. No respiratory distress. No chest pain. No calf tenderness. (Marcelo Wheeler MD R2) Objective Vitals Vital Signs Date Time Temp Pulse Resp B/P Pulse Ox O2 Delivery O2 Flow Rate FiO2 01/10/17 11:00 81 23 155/75 94 01/10/17 10:00 82 22 164/75 94 01/10/17 10:00 82 01/10/17 09:00 84 14 178/85 96 01/10/17 08:05 96 Nasal Cannula 5.00 01/10/17 08:00 98.7 76 21 142/65 97 01/10/17 08:00 76 01/10/17 07:00 73 19 153/67 97 01/10/17 07:00 76 Nasal Cannula 5.00 01/10/17 06:00 81 01/10/17 04:00 72 01/10/17 04:00 98.5 72 20 167/87 97 01/10/17 03:34 95 40 01/10/17 02:00 71 01/10/17 01:32 95 40 01/10/17 00:00 74 01/10/17 00:00 98.7 74 8 157/72 95 01/09/17 22:05 95 40 01/09/17 22:00 90 01/09/17 20:00 86 01/09/17 20:00 98.3 86 24 141/65 94 01/09/17 19:41 97 Nasal Cannula 5.00 01/09/17 19:00 96 Nasal Cannula 5.00 01/09/17 18:00 86 01/09/17 16:00 98.2 83 16 122/59 96 01/09/17 16:00 83 01/09/17 14:00 96 01/09/17 13:50 Nasal Cannula 5.00 01/09/17 12:00 81 01/09/17 12:00 97.8 81 16 162/72 97 I/O 01/09/17 01/09/17 01/09/17 01/10/17 01/10/17 01/10/17 07:00 15:00 23:00 07:00 15:00 23:00 Intake Total 400 ml 720 ml 780 ml 240 ml Output Total 500 ml 500 ml 700 ml 550 ml Balance -100 ml 220 ml 80 ml -310 ml Intake Oral 400 ml 720 ml 780 ml 240 ml IV Total 0 ml Output Urine Total 500 ml 500 ml 650 ml 550 ml Stool Total 50 ml (Marcelo Wheeler MD R2) Result Diagram: 01/09/1740601/09/17406 Objective Remarks GEN: Currently on 5 L via nasal cannula, no distress, lying in bed, pleasant LUNGS: CTAB with no CRW. No increased work of breathing. CARDIOVASCULAR: Regular rate and regular rhythm, without murmur or gallop. No significant edema GI/ABD: Soft without masses, without organomegaly. +BS. Colostomy CDI with nonbloody output. Colostomy clean, dry, and intact. NEURO: No focal deficits SKIN: Color normal, no rashes noted HEME/LYMPH: No bruising, petechia or significant adenopathy MUSC: Extremities are normal in appearance Procedures Intubation 01/01/17 Extubation 01/03/17 (Marcelo Wheeler MD R2) A/P Assessment and Plan 66-year-old male with multiple medical problems presented with altered mental status with signs and symptoms concerning for severe sepsis secondary to pneumonia and UTI. Patient was admitted for treatment with IV antibiotics and fluids, and was transferred to the ICU secondary to hypercapnic respiratory failure where he was intubated and sedated. Patient was extubated on 01/03 and is doing well on NC during the day and BiPAP at night. Discharge Planning Likely today to [facility] and rehabilitation. (Marcelo Wheeler MD R2) Attending Attestation Patient seen and examined. Case reviewed and discussed with the resident team. Agree with plan of care as discussed with me and documented in the resident note. (Carolyne Holm MD) Problem List: (1) COPD exacerbation Status: Acute Plan: Currently on 5L nasal cannula - DuoNeb every 6 hours scheduled - Albuterol nebulizer every 2 hours when necessary shortness of breath, will discharge with nebulizer device - Budesonide 0.5mg nebulizer q12hrs - DC'd Solu-Medrol 40 mg every 12 hours, 12/31-01/05 - Changed to by mouth prednisone 40 mg twice a day, started 01/05/17 - Will be discharged on prednisone 10 daily for 21 more days. - Supplemental oxygen as needed, currently saturating well on 5 L via nasal cannula. - BIPAP at night, uses this at home normally - Completed course of antibiotics (2) UTI (urinary tract infection) Status: Resolved Plan: Urine cultures growing Proteus mirabilis, sensitive to Zosyn - Zosyn q6h and Levaquin q48h started 12/31, DC on 01/08 (7 Days of treatement) (3) DANE (acute kidney injury) Status: Acute Plan: Creatinine elevated as high as 1.85, now down to 1.33. Baseline of 1.08 in 2016. Urine output 1700 in last 24 hrs. Renal ultrasound had poor visualization of the left kidney, but otherwise normal - no hydronephrosis or stones. - Avoid nephrotoxic agents - Encourage PO hydration - Monitor kidney function (4) Chronic Medical Problems Status: Chronic Plan: Hypertension: Amlodipine 2.5 mg daily restarted Hypothyroidism: Continue Levothyroxine 50 g by mouth daily Schizoaffective disorder: Abilify 2 mg daily (5) FEN/DVT PPX/GI PPX/Nursing Orders Status: Acute Plan: Fluids: PO fluids Electrolytes: Monitor and replace as needed Nutrition: 1800 ADA diet, tolerating well DVT Prophylaxis: Heparin subcutaneous Q8h, bilateral SCDs (Marcelo Wheeler MD R2) Problem Qualifiers (1) UTI (urinary tract infection): Qualified Code: N39.0 - Urinary tract infection without hematuria, site unspecified Marcelo Wheeler MD R2 Jan 10, 2017 12:01 Carolyne Holm MD Jan 10, 2017 14:01
[2017-01-10] MEDS: SODIUM CHLORIDE 0.9% FLUSH 10 ML FLUSH IV FLUSH SCH (12:39)
[2017-01-10] MEDS: SODIUM CHLORIDE 0.9% FLUSH 10 ML FLUSH IVF SCH (12:39)
--- NOTE | 2017-01-10 15:08 | HHI.DS ---
Discharge Summary Admission Date December 31, 2016 at 1:23 pm Discharge Date: Jan 10, 2017 Admitting Diagnosis sepsis, pneumonia, UTI (1) COPD exacerbation Diagnosis: Principal Plan: Currently on 5L nasal cannula - DuoNeb every 6 hours scheduled - Albuterol nebulizer every 2 hours when necessary shortness of breath, will discharge with nebulizer device - Budesonide 0.5mg nebulizer q12hrs - DC'd Solu-Medrol 40 mg every 12 hours, 12/31-01/05 - Changed to by mouth prednisone 40 mg twice a day, started 01/05/17 - Will be discharged on prednisone 10 daily for 21 more days. - Supplemental oxygen as needed, currently saturating well on 5 L via nasal cannula. - BIPAP at night, uses this at home normally - Completed course of antibiotics (2) UTI (urinary tract infection) Diagnosis: Principal Plan: Urine cultures growing Proteus mirabilis, sensitive to Zosyn - Zosyn q6h and Levaquin q48h started 12/31, DC on 01/08 (7 Days of treatement) (3) DANE (acute kidney injury) Diagnosis: Principal Plan: Creatinine elevated as high as 1.85, now down to 1.33. Baseline of 1.08 in 2016. Urine output 1700 in last 24 hrs. Renal ultrasound had poor visualization of the left kidney, but otherwise normal - no hydronephrosis or stones. - Avoid nephrotoxic agents - Encourage PO hydration - Monitor kidney function (4) Chronic Medical Problems Diagnosis: Secondary Plan: Hypertension: Amlodipine 2.5 mg daily restarted Hypothyroidism: Continue Levothyroxine 50 g by mouth daily Schizoaffective disorder: Abilify 2 mg daily (5) FEN/DVT PPX/GI PPX/Nursing Orders Diagnosis: Secondary Plan: Fluids: PO fluids Electrolytes: Monitor and replace as needed Nutrition: 1800 ADA diet, tolerating well DVT Prophylaxis: Heparin subcutaneous Q8h, bilateral SCDs Procedures Intubation 01/01/17 Extubation 01/03/17 Brief History Patient is a 66-year-old male with a past medical history significant for pneumonia, COPD, hyperkalemia, GERD, edema, schizoaffective disorder, legally blind, hypertension, hypothyroidism, depression, coronary artery disease , sleep apnea, colostomy, constipation, vitamin D deficiency, TB, Parkinson's, and dementia that presents to the [facility] his [facility] with a chief complaint of altered mental status times the last 3 days. She and states that he has not been feeling well for the last 5 days, he has felt dizzy, lightheaded , with nausea and vomiting. CBC/BMP: 01/09/17 0407 01/09/17 0407 Significant Findings Laboratory Tests Test 01/07/17 01/08/17 01/08/17 01/09/17 20:10 04:27 17:57 04:07 Carbon Dioxide Level 34.3 MEQ/L 32.3 MEQ/L 34.8 MEQ/L 32.3 MEQ/L (21.0-32.0) (21.0-32.0) (21.0-32.0) (21.0-32.0) Blood Urea Nitrogen 37 MG/DL (7-18) 35 MG/DL (7-18) 33 MG/DL (7-18) 35 MG/DL (7- 18) Creatinine 1.57 MG/DL 1.46 MG/DL 1.55 MG/DL 1.33 MG/DL (0.60-1.30) (0.60-1.30) (0.60-1.30) (0.60-1.30) Estimat Glomerular Filtration 44 ML/MIN (>89) 48 ML/MIN (>89) 45 ML/MIN (>89) 53 ML/MIN (>89) Rate Random Glucose 181 MG/DL 200 MG/DL 164 MG/DL (74-106) (74-106) (74-106) White Blood Count 15.4 TH/MM3 16.3 TH/MM3 (4.0-11.0) (4.0-11.0) Red Blood Count 4.24 MIL/MM3 4.18 MIL/MM3 (4.50-5.90) (4.50-5.90) Red Cell Distribution Width 17.5 % 17.9 % (11.6-17.2) (11.6-17.2) Neutrophils (%) (Auto) 87.7 % (16.0-70.0) Lymphocytes (%) (Auto) 6.2 % (9.0-44.0) Neutrophils # (Auto) 13.5 TH/MM3 (1.8-7.7) Neutrophils % (Manual) 76 % (16-70) Neutrophils # (Manual) 12.9 TH/MM3 (1.8-7.7) Myelocytes 5 % (0-0) Target Cells 1+ (NORMAL) Potassium Level 5.4 MEQ/L (3.5-5.1) Calcium Level 8.1 MG/DL 8.2 MG/DL (8.5-10.1) (8.5-10.1) Anion Gap 3 MEQ/L (5-15) PE at Discharge GEN: Currently on 5 L via nasal cannula, no distress, lying in bed, pleasant LUNGS: CTAB with no CRW. No increased work of breathing. CARDIOVASCULAR: Regular rate and regular rhythm, without murmur or gallop. No significant edema GI/ABD: Soft without masses, without organomegaly. +BS. Colostomy CDI with nonbloody output. Colostomy clean, dry, and intact. NEURO: No focal deficits SKIN: Color normal, no rashes noted HEME/LYMPH: No bruising, petechia or significant adenopathy MUSC: Extremities are normal in appearance Hospital Course 66 year old male with PMH significant for COPD, legally blind, hypertension, CAD. He presented with altered mental status. He was found to have severe sepsis with pneumonia and UTI. He was admitted for treatment with IV antibiotics and fluids. He required transfer to the ICU for hypercapnic respiratory failure, and was intubated and sedated. He was extubated on 01/03. He was treated for a COPD exacerbation with DuoNeb treatments, albuterol PRN, budesonide inhaler, steroids, and supplemental oxygen. By the time of discharge he was on 5L oxygen by nasal cannula with good O2 saturations. He was treated with Zosyn and Levaqin for 7 days via IV. For DANE his creatinine decreased back down to 1.33 since discharge, likely was prerenal from sepsis. By the time of discharge he was back to his baseline for respiratory status. His mental status was returned to baseline. The plan is to send him to a group home facility for closer monitoring. He will continue with albuterol inhaler as needed, budesonide twice per day, prednisone 10 mg for 21 more days, furosemide 20 mg bid. He is to follow up with PCP within a week. Pt Condition on Discharge: Stable Discharge Disposition: Discharge Home Discharge Instructions DIET: Follow Instructions for: Renal Failure Diet Activities you can perform: See Additionl Instruction Other Activity Instructions: Walking with assistance only, visually impaired Wheelchair as needed Follow up Referrals: PCP Follow-up - 3-5 Days New Medications: Nebulizer/Adult Mask (Nebulizer/Adult Mask) 1 Kit Kit 1 KIT .ROUTE DIRECTED Breathing Treatment #1 Ref 0 KIT Prednisone (Prednisone) 10 Mg Tab 10 MG PO DAILY Please take 40 mg for 3 days (4 tablets/day) Then 20mg for 3 days (2 tablets/day) Then 10mg for 3 days (1 tablet/day) #21 Ref 0 TAB Albuterol Neb (Albuterol Neb) 2.5 Mg/3 Ml Neb 2.5 MG NEB Q2HR NEB PRN SHORTNESS OF BREATH #60 NEBULE Budesonide Neb (Pulmicort Respules) 0.5 Mg/2 Ml Neb 0.5 MG NEB Q12HR NEB #60 AMPULE Continued Medications: Acetaminophen (Mapap) 325 Mg Tab 650 MG PO Q4HR PRN PAIN 1-10 OR TEMP >100.4F Ref 0 TAB Amlodipine (Amlodipine) 2.5 Mg Tab 2.5 MG PO DAILY Blood Pressure Management #30 Ref 0 TAB Aripiprazole (Abilify) 2 Mg Tab 2 MG PO HS SCHIZOAFFECTIVE DISORDER #30 Ref 0 TAB Calcium Carbonate (Antacid) (Tums) 500 Mg Chew 1000 MG CHEW BID WITH MEALS Heartburn Management Ref 0 TAB Cholecalciferol (Vitamin D-1000) 1,000 Unit Tab 1000 UNITS PO DAILY Nutritional Supplement #1 Ref 0 BOTTLE Docusate Sodium (Docusate Sodium) 100 Mg Cap 100 MG PO HS Prevent Constipation #60 Ref 0 CAP Furosemide (Furosemide) 20 Mg Tab 20 MG PO BID EDEMA #60 Ref 0 TAB Levothyroxine (Levothyroxine) 50 Mcg Tab 50 MCG PO DAILY Thyroid #30 Ref 0 TAB Ondansetron (Ondansetron) 4 Mg Tab 4 MG PO Q6HR PRN NAUSEA OR VOMITING Simethicone (Gas Relief Maximum Streng) 125 Mg Chw 125 MG PO Q8HR PRN GAS RETENTION Marcelo Wheeler MD R2 Jan 10, 2017 3:07 pm
== END 2017-01-10 13:50 | DRG 871 ==
LOC: NEPE 11:18 → NEDA 13:23 → N05A 16:00 → HIME 23:50
PROVIDERS: ADMIT Family Medicine; ATTEND Family Medicine
PROC: 5A09357 Assistance with Respiratory Ventilation, Less than 24 Consecutive Hours, Continuous Positive Airway Pressure (ICD-10-PCS; principal; 2016-12-31)
PROC: 0T9B70Z Drainage of Bladder with Drainage Device, Via Natural or Artificial Opening (ICD-10-PCS; 2016-12-31)
PROC: 5A1945Z Respiratory Ventilation, 24-96 Consecutive Hours (ICD-10-PCS; 2017-01-01)
PROC: 0BH17EZ Insertion of Endotracheal Airway into Trachea, Via Natural or Artificial Opening (ICD-10-PCS; 2017-01-01)
PROC: 05HM33Z Insertion of Infusion Device into Right Internal Jugular Vein, Percutaneous Approach (ICD-10-PCS; 2017-01-01)
DX: A41.9 Sepsis, unspecified organism (principal); J18.9 Pneumonia, unspecified organism; R65.21 Severe sepsis with septic shock; J96.01 Acute respiratory failure with hypoxia; J96.02 Acute respiratory failure with hypercapnia; N17.9 Acute kidney failure, unspecified; E87.2 Acidosis; N39.0 Urinary tract infection, site not specified; J44.1 Chronic obstructive pulmonary disease with (acute) exacerbation; J44.0 Chronic obstructive pulmonary disease with (acute) lower respiratory infection; G20 Parkinson's disease; K21.9 Gastro-esophageal reflux disease without esophagitis; I25.10 Atherosclerotic heart disease of native coronary artery without angina pectoris; I10 Essential (primary) hypertension; H54.8 Legal blindness, as defined in USA; G47.33 Obstructive sleep apnea (adult) (pediatric); F25.9 Schizoaffective disorder, unspecified; E55.9 Vitamin D deficiency, unspecified; E03.9 Hypothyroidism, unspecified; F32.9 Major depressive disorder, single episode, unspecified; F41.9 Anxiety disorder, unspecified; K46.9 Unspecified abdominal hernia without obstruction or gangrene; F02.80 Dementia in other diseases classified elsewhere, unspecified severity, without behavioral disturbance, psychotic disturbance, mood disturbance, and anxiety; E78.5 Hyperlipidemia, unspecified; E87.5 Hyperkalemia; E66.01 Morbid (severe) obesity due to excess calories; Z86.11 Personal history of tuberculosis; K59.09 Other constipation; Z93.3 Colostomy status; Z87.01 Personal history of pneumonia (recurrent); E11.65 Type 2 diabetes mellitus with hyperglycemia; B96.4 Proteus (mirabilis) (morganii) as the cause of diseases classified elsewhere
CPT/HCPCS: 31500; 36556; 36600; 51702; 71010; 76775; 76937; 80048; 80053; 80069; 80202; 81001; 82140; 82550; 82570; 82805; 82947; 82948; 83605; 83690; 83735; 83880; 84100; 84300; 84443; 84484; 85007; 85025; 85027; 85060; 87040; 87070; 87077; 87086; 87149; 87186; 87205; 87449; 87641; 93005; 93306; 94002; 94003; 94150; 94640; 94664; 96365; 96375; C9113; J0456; J0610; J0696; J1644; J1817; J1956; J2543; J2920; J3010; J3370; J7030; J7040; J7050; J7512; J7613; J7626; P9047

== ENCOUNTER 2017-01-27 13:36 | Inpatient (IN) | payer MEDICARE, OTHER ==
[~2017-01-27] VITALS: Ht 170.2 cm; Wt 104.3 kg
[2017-01-27] VITALS (10 sets, daily range): BP systolic 110–149; BP diastolic 60–76; PULSE 68–99; RESP 15–26; TEMP 98.2–98.4; O2SAT 92–96
[~2017-01-27 13:36] MED LIST changes: +ALBU0.08 NEB; -CEFT500T3 PO; -COLA100C3 PO; +DOCU100C PO; -FURO1TAB62 PO; +FURO20TA PO; +NEBULIZER/ADULT1 KIT; +ONDA1TAB16 PO; +PRED10 PO; -SPIRCAP INH; +TUMS500C CHEW; -VENTAER INH; -ZANT150T2 PO
--- NOTE | 2017-01-27 13:59 | PD ---
HPI Chief Complaint: Altered Mental Status Time Seen by Provider: 13:49 Travel History International Travel<30 days: No Contact w/Intl Traveler<30days: No Traveled to known affect area: No History of Present Illness HPI This patient is sent from the intermediate with complaint of decreased mental status gradually over the last week. Patient is a DNR demented male with Parkinson's. He is not able to provide much in the way of useful history or review of systems. He says that he feels fine. He denies any acute pain or complaint. He does follow commands. He wears 5 L nasal cannula as baseline PFSH Past Medical History Anxiety: Yes Depression: Yes Cardiovascular Problems: Yes (bp) COPD: Yes Developmental Delay: Yes (MENTALLY CHALLENGED) Diminished Hearing: No GERD: Yes Hypertension: Yes Implanted Vascular Access Dvce: Yes Neurologic: Yes (DEVELOPMENTALLY DELAYED) Respiratory: No Seizures: Yes Thyroid Disease: Yes Past Surgical History Eye Surgery: Yes Other Surgery: Yes Social History Alcohol Use: No Tobacco Use: No Substance Use: No Allergies-Medications (Allergen,Severity, Reaction): Coded Allergies: No Known Allergies (Verified , 12/31/16) Reported Meds & Prescriptions Reported Meds & Active Scripts Active Prednisone 10 Mg Tab 10 Mg PO DAILY Please take 40 mg for 3 days (4 tablets/day) Then 20mg for 3 days (2 tablets/day) Then 10mg for 3 days (1 tablet/day) Albuterol Neb (Albuterol Sulfate) 2.5 Mg/3 Ml Neb 2.5 Mg NEB Q2HR NEB PRN Pulmicort Respules (Budesonide) 0.5 Mg/2 Ml Neb 0.5 Mg NEB Q12HR NEB Nebulizer/Adult Mask (N/A) 1 Kit Kit 1 Kit .ROUTE DIRECTED Reported Breo Ellipta Inh (Fluticasone/Vilanterol) 100-25 Mcg/Act Inh 1 Puff INH DAILY Use daily at the same time. Spironolactone 25 Mg Tab 25 Mg PO DAILY Tums (Calcium Carbonate (Antacid)) 500 Mg Chew 1,000 Mg CHEW BID WITH MEALS Docusate Sodium 100 Mg Cap 100 Mg PO HS Furosemide 20 Mg Tab 20 Mg PO DAILY Ondansetron (Ondansetron HCl) 4 Mg Tab 4 Mg PO Q6HR PRN Vitamin D-1000 (Cholecalciferol) 1,000 Unit Tab 1,000 Units PO DAILY Mapap (Acetaminophen) 325 Mg Tab 650 Mg PO Q4HR PRN Levothyroxine (Levothyroxine Sodium) 50 Mcg Tab 50 Mcg PO DAILY Gas Relief Maximum Streng (Simethicone) 125 Mg Chw 125 Mg PO Q8HR PRN Amlodipine (Amlodipine Besylate) 2.5 Mg Tab 2.5 Mg PO DAILY Abilify (Aripiprazole) 2 Mg Tab 2 Mg PO HS Review of Systems General / Constitutional: No: Fever Eyes: Positive: Blindness, No: Visual changes HENT: No: Headaches Cardiovascular: No: Chest Pain or Discomfort Respiratory: No: Shortness of Breath Gastrointestinal: No: Abdominal Pain Genitourinary: No: Dysuria Musculoskeletal: Positive: Weakness, No: Pain Skin: No Rash Neurologic: Positive: Weakness, Change in Mentation Psychiatric: No: Depression Endocrine: No: Polydipsia Hematologic/Lymphatic: No: Easy Bruising Physical Exam Narrative GENERAL: Well-nourished, well-developed patient in no apparent distress. SKIN: Focused skin assessment reveals no rash and nodules. Skin is Warm and dry. HEAD: Atraumatic. Normocephalic. EYES: Bilateral eye prosthesis. ENT: No nasal bleeding or discharge. Mucous membranes pink and moist. NECK: Trachea midline. No JVD. CARDIOVASCULAR: Regular rate and rhythm. No murmur appreciated. RESPIRATORY: No accessory muscle use. Clear to auscultation. Breath sounds equal bilaterally. GASTROINTESTINAL: Abdomen soft, non-tender, nondistended. Hepatic and splenic margins not palpable. MUSCULOSKELETAL: No obvious deformities. No clubbing. No cyanosis. No edema. NEUROLOGICAL: Awake and following commands. Slightly sluggish demeanor. No obvious cranial nerve deficits. Motor grossly within normal limits. Normal speech. PSYCHIATRIC: Appropriate mood and affect; insight and judgment reduced from dementia Data Data Last Documented VS Vital Signs Date Time Temp Pulse Resp B/P Pulse Ox O2 Delivery O2 Flow Rate FiO2 01/27/17 14:47 95 20 137/65 95 BiPAP 10 45 01/27/17 13:50 98.2 Orders Arterial Blood Gas (Abg) (01/27/17 ) Iv Access Insert/Monitor (01/27/17 13:50) Complete Blood Count With Diff (01/27/17 13:50) Basic Metabolic Panel (Bmp) (01/27/17 13:50) Urinalysis - C+S If Indicated (01/27/17 13:50) Cath For Specimen (01/27/17 13:50) Chest, Single Ap (01/27/17 ) Ct Brain W/O Iv Contrast(Rout) (01/27/17 ) Resp Bipap / Cpap Non Invas Vt (01/27/17 ) Labs Laboratory Tests Test 01/27/17 01/27/17 01/27/17 13:55 13:59 14:08 White Blood Count 10.1 TH/MM3 Red Blood Count 4.40 MIL/MM3 Hemoglobin 14.3 GM/DL Hematocrit 42.6 % Mean Corpuscular Volume 96.8 FL Mean Corpuscular Hemoglobin 32.6 PG Mean Corpuscular Hemoglobin 33.7 % Concent Red Cell Distribution Width 17.7 % Platelet Count 191 TH/MM3 Mean Platelet Volume 8.7 FL Neutrophils (%) (Auto) 73.3 % Lymphocytes (%) (Auto) 14.6 % Monocytes (%) (Auto) 8.0 % Eosinophils (%) (Auto) 3.6 % Basophils (%) (Auto) 0.5 % Neutrophils # (Auto) 7.4 TH/MM3 Lymphocytes # (Auto) 1.5 TH/MM3 Monocytes # (Auto) 0.8 TH/MM3 Eosinophils # (Auto) 0.4 TH/MM3 Basophils # (Auto) 0.0 TH/MM3 CBC Comment DIFF FINAL Differential Comment Sodium Level 142 MEQ/L Potassium Level 4.0 MEQ/L Chloride Level 97 MEQ/L Carbon Dioxide Level GREATER THAN 45.0 MEQ/L Anion Gap 0 MEQ/L Blood Urea Nitrogen 30 MG/DL Creatinine 1.35 MG/DL Estimat Glomerular Filtration 53 ML/MIN Rate Random Glucose 180 MG/DL Calcium Level 9.3 MG/DL Blood Gas Puncture Site RT RADIAL Blood Gas Patient Temperature 98.6 Blood Gas HCO3 47 mmol/L Blood Gas Base Excess 20.1 mmol/L Blood Gas Oxygen Saturation 95 % Arterial Blood pH 7.31 Arterial Blood Partial 98 mmHg Pressure CO2 Arterial Blood Partial 89 mmHG Pressure O2 Arterial Blood Oxygen Content 18.5 Vol % Arterial Blood 2.3 % Carboxyhemoglobin Arterial Blood Methemoglobin 0.4 % Blood Gas Hemoglobin 13.8 G/DL Oxygen Delivery Device NASAL CANNULA Blood Gas Liter Flow 6 L/M Urine Color YELLOW Urine Turbidity CLEAR Urine pH 5.5 Urine Specific [place] 1.017 Urine Protein TRACE mg/dL Urine Glucose (UA) TRACE mg/dL Urine Ketones NEG mg/dL Urine Occult Blood NEG Urine Nitrite NEG Urine Bilirubin NEG Urine Urobilinogen LESS THAN 2.0 MG/DL Urine Leukocyte Esterase SMALL Urine RBC LESS THAN 1 /hpf Urine WBC 2 /hpf Urine Hyaline Casts 4 /lpf Urine Mucus FEW /lpf Microscopic Urinalysis Comment CATH-CULT NOT IND MDM Medical Decision Making Medical Screen Exam Complete: Yes Emergency Medical Condition: Yes Medical Record Reviewed: Yes Differential Diagnosis Hypercarbic tore failure, UTI, electrolyte abnormality, dementia Narrative Course I have reviewed the patient's electronic medical record. Patient recently hospitalized and intubated for respiratory failure Extensive workup is ordered Brain CT is negative I reviewed his chest x-ray shows some left base atelectasis without anything emergent ABG is striking for CO2 of 98 IV placed CBC is normal Metabolic profile shows elevated bicarbonate as expected Catheterized urine is clean Patient is critically ill be admitted to intensive care on BiPAP therapy I've ordered BiPAP to blow off some CO2 He is a confirmed DNR and we will honor that and not intubate him He is awake and talking at this point and does follow commands I reviewed with professor of legal studies Critical Care Narrative Aggregate critical care time was 38 minutes. Time to perform other separately billable procedures was not included in the critical care time. My time did not include minutes spent treating any other patients simultaneously or on activities that did not directly contribute to the patient's treatment. The services I provided to this patient were to treat and/or prevent clinically significant deterioration that could result in: Cardiopulmonary arrest, hypoxemic brain injury, cardiac arrhythmia I provided critical care services requiring my management, as noted below: Chart data review, documentation time, medication orders and management, vital sign assessments/reviewing monitor data, ordering and reviewing lab tests, ordering and interpreting/reviewing x-rays and diagnostic studies, care of the patient and discussion of the patient with the admitting physicians. Diagnosis Primary Impression: Acute hypercapnic respiratory failure Admitting Information Admitting Physician Requests: Admit Theo Crawford MD Jan 27, 2017 13:59
[2017-01-27 14:09] LABS: BLOOD GAS BASE EXCESS 20.1 mmol/L (-2-2); BLOOD GAS CARBOXYHEMOGLOBIN 2.3 % (0-4); BLOOD GAS HCO3 47 mmol/L (22-26); BLOOD GAS METHEMOGLOBIN 0.4 % (0-2); BLOOD GAS O2 HGB SATURATION 95 % (90-100); BLOOD GAS OXYGEN CONTENT 18.5 Vol % (12.0-20.0); BLOOD GAS PCO2 98 mmHg (38-42); BLOOD GAS PO2 89 mmHG (61-120); BLOOD GAS TOTAL HGB 13.8 G/DL (12.0-16.0); TEMP CORR TO 98.6
[2017-01-27 14:10] LABS: CRITICAL VALUE YES; DRAW SITE RT RADIAL; LITER FLOW 6 L/M; NUMBER OF ARTERIAL PUNCTURES 1; OXYGEN DEVICE NASAL CANNULA; STAT YES
[2017-01-27 14:19] LABS: AUTOMATED NEUTROPHIL # 7.4 TH/MM3 (1.8-7.7); BASOPHIL % 0.5 % (0.0-2.0); EOSINOPHIL # 0.4 TH/MM3 (0-0.4); EOSINOPHIL % 3.6 % (0.0-4.0); HEMATOCRIT 42.6 % (39.0-51.0); HEMO FLAGS DIFF FINAL; LYMPH % 14.6 % (9.0-44.0); LYMPHOCYTE # 1.5 TH/MM3 (1.0-4.8); MEAN CELL VOLUME 96.8 FL (80.0-100.0); MEAN CORPUSCULAR HEMOGLOBIN 32.6 PG (27.0-34.0); MEAN CORPUSCULAR HGB CONC 33.7 % (32.0-36.0); NEUT % 73.3 % (16.0-70.0); PLATELET COUNT 191 TH/MM3 (150-450); RED CELL DISTRIBUTION WIDTH 17.7 % (11.6-17.2); WHITE BLOOD COUNT 10.1 TH/MM3 (4.0-11.0)
[2017-01-27 14:27] LABS: BLOOD, URINE NEG (NEG); GLUCOSE,URINE TRACE mg/dL (NEG); HYALINE CAST, URINE 4 /lpf (RARE); KETONE, URINE NEG (NEG); MUCUS URINE FEW /lpf (OCC); NITRITE,URINE NEG (NEG); PH, URINE 5.5 (5.0-8.5); URINE COLOR YELLOW (YELLW/STRAW)
[2017-01-27 14:28] LABS: COMMENT (UR) CATH-CULT NOT IND; CULTURE IF INDICATED CATH CULTURE NOT IND
--- NOTE | 2017-01-27 14:28 | RADRPT ---
EXAM DATE/TIME: 01/27/2017 13:57 [facility] COMPARISON: CHEST SINGLE AP, January 05, 2017, 3:28. INDICATIONS : Shortness of breath. MEDICAL HISTORY : Hypertension. Chronic obstructive pulmonary disease. Coronary artery disease. SURGICAL HISTORY : None. ENCOUNTER: Initial ACUITY: 1 day PAIN SCORE: 0/10 LOCATION: Bilateral chest FINDINGS: Portable AP view of the chest demonstrates a normal-sized cardiac silhouette. There is elevation left hemidiaphragm with pleural parenchymal opacity at the left base. Right IJ line has been removed. Rig ht lung demonstrates no abnormality. No pneumothorax is seen. Bones demonstrate no acute finding. CONCLUSION: Stable left basilar opacity likely representing atelectasis or consolidation with possible small pleu ral effusion. Esteban Pantoja MD on January 27, 2017 at 14:25 Board Certified Radiologist. This report was verified electronically.
[2017-01-27 14:43] LABS: ANION GAP 0 MEQ/L (5-15); BICARBONATE GREATER THAN 45.0 MEQ/L (21.0-32.0); BLOOD UREA NITROGEN 30 MG/DL (7-18); CHLORIDE 97 MEQ/L (98-107); GLOMERULAR FILTRATION RATE 53 ML/MIN (>89); SODIUM (NA) 142 MEQ/L (136-145)
--- NOTE | 2017-01-27 14:47 | RADRPT ---
EXAM DATE/TIME: 01/27/2017 14:38 [facility] COMPARISON: No previous studies available for comparison. INDICATIONS : Altered mental status for one week. RADIATION DOSE: 58.53 CTDIvol (mGy) MEDICAL HISTORY : Parkinson's. Seizures. Hypertension. SURGICAL HISTORY : None. ENCOUNTER: Initial ACUITY: 1 day PAIN SCALE: 0/10 LOCATION: Bilateral head TECHNIQUE: Multiple contiguous axial images were obtained of the head. Using automated exposure control and adj ustment of the mA and/or kV according to patient size, radiation dose was kept as low as reasonably a chievable to obtain optimal diagnostic quality images. DICOM format image data is available electro nically for review and comparison. FINDINGS: CEREBRUM: The ventricles are normal for age. No evidence of midline shift, mass lesion, hemorrhage or acute in farction. No extra-axial fluid collections are seen. POSTERIOR FOSSA: The cerebellum and brainstem are intact. The 4th ventricle is midline. The cerebellopontine angle i s unremarkable. EXTRACRANIAL: The visualized portion of the orbits is intact. SKULL: The calvaria is intact. No evidence of skull fracture. CONCLUSION: Negative for an acute process. Gerardo Louise MD FACR on January 27, 2017 at 14:44 Board Certified Radiologist. This report was verified electronically.
[2017-01-27] MEDS ORDERED: SPIR25TA PO (15:22)
[2017-01-27] MEDS ORDERED: FLUT1INH INH (15:22)
[2017-01-27] MEDS ORDERED: BISACODYL 10 MG SUPP RECTAL PRN (15:45)
[2017-01-27] MEDS ORDERED: SENNOSIDES 8.6 MG TAB PO PRN (15:45)
[2017-01-27] MEDS ORDERED: LACTULOSE SYRUP 20 GM/30 ML CUP PO PRN (15:45)
[2017-01-27] MEDS ORDERED: MAGNESIUM HYDROXIDE SUSP 30 ML CUP PO PRN (15:45)
[2017-01-27] MEDS ORDERED: CHLORHEXIDINE GLUCONATE 2 % 1 PACK (2 CLOTHS) TOP PRN (15:45)
[2017-01-27] MEDS ORDERED: MISCELLANEOUS NURSING INFORMATION XX SCH (15:45)
[2017-01-27] MEDS ORDERED: RESP: ALBUTEROL 2.5 MG/IPRATROPIUM 0.5 MG NEB (PRN) INH (15:45)
[2017-01-27] MEDS ORDERED: LEVOFLOXACIN 500 MG PREMIX INJ 100 ML IV SCH (16:00)
[2017-01-27] MEDS ORDERED: DEXTROSE 50% IN WATER 50 ML VIAL(D50) IV PRN (16:00)
[2017-01-27] MEDS ORDERED: GLUCAGON 1 MG/ML VIAL OTHER PRN (16:00)
[2017-01-27] MEDS: INSULIN NovoLIN REGULAR SUPPLEMENTAL SCALE SQ SCH ×2 (17:15→20:00)
--- NOTE | 2017-01-27 17:23 | MH ---
cc: CONCEPCION MORRIS M.D. DATE OF ADMISSION 01/27/2017 DATE OF 1950 HISTORY OF THE PRESENT ILLNESS The patient is a 66-year-old male with past medical history of COPD on 5 liters nasal cannula at baseline, dementia, hypothyroidism, gastroesophageal reflux disease, hypertension who presented to [facility] ED from a local nursing facility with complaints of decreased mental status gradually over past one week. The patient is DNR and has history of Parkinson's dementia. On arrival ABG was performed on 6 liters nasal cannula which showed acute hypercapnic respiratory failure with a pH of 7.31, CO2 98, pAO2 89, bicarb 20, sats of 95%. He was subsequently placed on a BiPap currently at 15/8 with 45% FIO2 and saturation of 95%. His laboratory data significant for elevated CO2 at 45 on a BMP and mild acute kidney injury with creatinine level of 1.35. The patient is DNR per ED staff. The history is limited as the patient is a poor historian. PAST MEDICAL HISTORY Significant for: 1. Anxiety, depression. 2. Hypertension. 3. COPD. 4. Developmental delay. 5. Gastroesophageal reflux disease. 6. Thyroid disease. PAST SURGICAL HISTORY Previous eye surgery. ALLERGIES No known allergies. SOCIAL HISTORY Nonsmoker, nondrinker. MEDICATIONS Reviewed which include: 1. Amlodipine. 2. Abilify. 3. Lasix. 4. Spironolactone. 5. Breo. 6. Prednisone. 7. Pulmicort. FAMILY HISTORY Noncontributory. REVIEW OF SYSTEMS Unable to obtain review of systems limited as the patient is a poor historian. PHYSICAL EXAMINATION GENERAL: A 66-year-old male lying in bed on BiPap in mild respiratory distress. VITAL SIGNS: Temperature 98.2, pulse of 86, blood pressure 137/65, saturation 95% on BiPap 50/8 45% FIO2. HEENT: Atraumatic, normocephalic. The patient is blind bilaterally. Oral mucosa within normal. NECK: Supple. No JVD, adenopathy or thyromegaly. Trachea midline. CARDIOVASCULAR: Regular rate and rhythm. Normal S1-S2. No murmurs, rubs or gallops noted. LUNGS: Pulmonary exam bilateral equal air entry. No rales or wheezing. ABDOMEN: Soft, nontender. No distension. Positive bowel sounds. EXTREMITIES: No cyanosis, clubbing or edema. NEUROLOGIC: No focal sensory deficit. LABORATORY DATA WBC 10, hemoglobin 14.3, hematocrit 42, platelet count of 191. Sodium 142, potassium 4.0, chloride 97, CO2 greater than 45, BUN 30, creatinine 1.35, glucose 180. IMAGING Radiographic studies, CT scan of the brain obtained in the ER negative for acute process. Chest x-ray showed stable left basilar opacity, likely representing atelectasis or consolidation with possible small pleural effusion. IMPRESSION 1. Acute hypercapnic respiratory failure. 2. COPD exacerbation. 3. Acute kidney injury. 4. Hyperglycemia. 5. Parkinson's dementia. 6. Hypothyroidism. 7. Gastroesophageal reflux disease. 8. Hypertension. 9. History of anxiety and depression. RECOMMENDATIONS 1. Monitor neuro status closely and avoid any sedatives. CT scan of the brain in the ED negative for acute process. 2. Continue with oxygen and maintain sats above 92%. 3. Bronchodilators in the form of DuoNeb q. 4+ q.2 p.r.n. for shortness of breath. In addition will start steroids Solu-Medrol 60 [address] 4[address] the patient on Pulmicort nebulizers 0.5 q.12h. Continue with BiPap for respiratory distress. The patient is a DNR per ED staff. Will give Diamox 250 mg IV x1. 5. Monitor heart rate and blood pressure closely and maintain MAP greater 65 mmHg. 6. Monitor renal function Is and Os and electrolyte replacement as needed. I will place on IV fluids in the form of NS at 50 ml an hour. 7. Keep n.p.o. for now until respiratory status improves and place on Protonix 40 mg IV daily. 8. Place on empiric antibiotics in the form of Levaquin and monitor for signs of infections which include fever and WBC. Check sputum culture. 9. Monitor CBC. 10. Sliding scale insulin with Accu-Chek q. 4-hour for glycemic control. 11. GI prophylaxis with Protonix 40 mg daily and DVT prophylaxis with SCDs and heparin subcu. Further recommendations will be based on hospital course. MD TOM Vazquez/BEVERLY /4:10 PM /5:11 PM
[2017-01-27] MEDS: methylPREDNISolone SOD SUCC 125 MG/2 ML VIAL IV PUSH SCH ×2 (17:31→20:17)
[2017-01-27] MEDS: PANTOPRAZOLE SODIUM 40 MG VIAL IV SCH (17:31)
[2017-01-27] MEDS: SODIUM CHLOR 0.9% 1000 ML INJ 1,000 ML IV SCH (17:32)
[2017-01-27] MEDS: RESP: ALBUTEROL 2.5 MG/IPRATROPIUM 0.5 MG NEB (SCH) INH ×2 (17:42→19:17)
[2017-01-27] MEDS: HEPARIN SODIUM - SQ 10,000 UNITS/ML VIAL SQ SCH (18:50)
[2017-01-27] MEDS: LEVOFLOXACIN 750 MG/DEXTROSE 150 ML IV SCH (18:51)
[2017-01-27] MEDS: RESP: BUDESONIDE 0.5 MG/2 ML NEB NEB SCH (19:16)
[2017-01-27] MEDS: DOCUSATE SODIUM 50 MG/SENNA 8.6 MG TAB PO SCH (20:17)
[2017-01-27 21:02] LABS: BLOOD GAS BASE EXCESS 14.9 mmol/L (-2-2); BLOOD GAS CARBOXYHEMOGLOBIN 2.5 % (0-4); BLOOD GAS HCO3 42 mmol/L (22-26); BLOOD GAS O2 HGB SATURATION 91 % (90-100); BLOOD GAS OXYGEN CONTENT 17.1 Vol % (12.0-20.0); BLOOD GAS PCO2 82 mmHg (38-42); BLOOD GAS PO2 70 mmHg (61-120); BLOOD GAS TOTAL HGB 13.3 G/DL (12.0-16.0); TEMP CORR TO 98.6
[2017-01-27 21:06] LABS: CRITICAL VALUE YES; DRAW SITE RT RADIAL; FIO2 60 %; NUMBER OF ARTERIAL PUNCTURES 1; OXYGEN DEVICE BIPAP; STAT NO; ULNAR PULSE PRESENT; VENT SETTINGS 15/8 RATE 8
[2017-01-28] VITALS (18 sets, daily range): BP systolic 110–137; BP diastolic 64–83; PULSE 78–97; RESP 12–22; TEMP 98–98.8; O2SAT 89–98
[2017-01-28] MEDS: RESP: ALBUTEROL 2.5 MG/IPRATROPIUM 0.5 MG NEB (SCH) INH ×7 (00:22→23:15)
[2017-01-28] MEDS: CHLORHEXIDINE GLUCONATE 2 % 1 PACK (2 CLOTHS) TOP SCH (04:00)
[2017-01-28] MEDS: INSULIN NovoLIN REGULAR SUPPLEMENTAL SCALE SQ SCH ×6 (04:00→20:00)
[2017-01-28 05:07] LABS: AUTOMATED NEUTROPHIL # 7.6 TH/MM3 (1.8-7.7); BASOPHIL % 0.1 % (0.0-2.0); EOSINOPHIL % 0.1 % (0.0-4.0); HEMATOCRIT 39.1 % (39.0-51.0); HEMO FLAGS DIFF FINAL; LYMPH % 6.1 % (9.0-44.0); LYMPHOCYTE # 0.5 TH/MM3 (1.0-4.8); MEAN CELL VOLUME 95.6 FL (80.0-100.0); MEAN CORPUSCULAR HEMOGLOBIN 32.3 PG (27.0-34.0); MEAN CORPUSCULAR HGB CONC 33.8 % (32.0-36.0); MONO % 1.1 % (0.0-8.0); NEUT % 92.6 % (16.0-70.0); PLATELET COUNT 183 TH/MM3 (150-450); RED BLOOD COUNT 4.09 MIL/MM3 (4.50-5.90); RED CELL DISTRIBUTION WIDTH 17.5 % (11.6-17.2); WHITE BLOOD COUNT 8.2 TH/MM3 (4.0-11.0)
[2017-01-28 05:21] LABS: BICARBONATE 42.2 MEQ/L (21.0-32.0); MAGNESIUM 2.4 MG/DL (1.5-2.5); POTASSIUM 4.1 MEQ/L (3.5-5.1)
[2017-01-28] MEDS: methylPREDNISolone SOD SUCC 125 MG/2 ML VIAL IV PUSH SCH ×3 (05:58→20:07)
[2017-01-28] MEDS: HEPARIN SODIUM - SQ 10,000 UNITS/ML VIAL SQ SCH ×2 (05:58→17:16)
[2017-01-28] MEDS ORDERED: DEXTROSE 50% IN WATER 50 ML VIAL(D50) IV PRN (07:30)
[2017-01-28] MEDS ORDERED: GLUCAGON 1 MG/ML VIAL OTHER PRN (07:30)
--- NOTE | 2017-01-28 07:31 | HHI.CCPN ---
Subjective Remarks/Hospital Course The patient is a 66-year-old male with past medical history of COPD on 5 liters nasal cannula at baseline, dementia, hypothyroidism, gastroesophageal reflux disease, hypertension who presented to [facility] ED from a local nursing facility with complaints of decreased mental status gradually over past one week. The patient is DNR and has history of Parkinson's dementia. On arrival ABG was performed on 6 liters nasal cannula which showed acute hypercapnic respiratory failure with a pH of 7.31, CO2 98, pAO2 89, bicarb 20, sats of 95%. He was subsequently placed on a BiPap currently at 15/8 with 45% FIO2 and saturation of 95%. His laboratory data significant for elevated CO2 at 45 on a BMP and mild acute kidney injury with creatinine level of 1.35. The patient is DNR per ED staff. The history is limited as the patient is a poor historian. 01/28 Patient remains on BIPAP overnight 15/8 with 55% FIO2. Repeat ABG last night showed improvements in his resp acidosis with CO2:82 from 98. Patient is no code DNR Objective Vital Signs Date Time Temp Pulse Resp B/P Pulse Ox O2 Delivery O2 Flow Rate FiO2 01/28/17 04:06 94 55 01/28/17 04:00 98.1 96 12 125/73 01/27/17 17:37 BiPAP 01/27/17 16:04 8 Intake and Output 01/27/17 01/27/17 01/28/17 08:00 16:00 00:00 Intake Total 271 ml Output Total 350 ml Balance -79 ml Result Diagram: 01/28/17 0434 01/28/17 0434 Other Results Laboratory Tests Test 01/27/17 01/27/17 01/27/17 01/27/17 13:55 13:59 14:08 20:19 White Blood Count 10.1 TH/MM3 Red Blood Count 4.40 MIL/MM3 Hemoglobin 14.3 GM/DL Hematocrit 42.6 % Mean Corpuscular Volume 96.8 FL Mean Corpuscular Hemoglobin 32.6 PG Mean Corpuscular Hemoglobin 33.7 % Concent Red Cell Distribution Width 17.7 % Platelet Count 191 TH/MM3 Mean Platelet Volume 8.7 FL Neutrophils (%) (Auto) 73.3 % Lymphocytes (%) (Auto) 14.6 % Monocytes (%) (Auto) 8.0 % Eosinophils (%) (Auto) 3.6 % Basophils (%) (Auto) 0.5 % Neutrophils # (Auto) 7.4 TH/MM3 Lymphocytes # (Auto) 1.5 TH/MM3 Monocytes # (Auto) 0.8 TH/MM3 Eosinophils # (Auto) 0.4 TH/MM3 Basophils # (Auto) 0.0 TH/MM3 CBC Comment DIFF FINAL Differential Comment Sodium Level 142 MEQ/L Potassium Level 4.0 MEQ/L Chloride Level 97 MEQ/L Carbon Dioxide Level GREATER THAN 45.0 MEQ/L Anion Gap 0 MEQ/L Blood Urea Nitrogen 30 MG/DL Creatinine 1.35 MG/DL Estimat Glomerular Filtration 53 ML/MIN Rate Random Glucose 180 MG/DL Calcium Level 9.3 MG/DL Blood Gas Puncture Site RT RADIAL Blood Gas Patient Temperature 98.6 Blood Gas HCO3 47 mmol/L Blood Gas Base Excess 20.1 mmol/L Blood Gas Oxygen Saturation 95 % Arterial Blood pH 7.31 Arterial Blood Partial 98 mmHg Pressure CO2 Arterial Blood Partial 89 mmHG Pressure O2 Arterial Blood Oxygen Content 18.5 Vol % Arterial Blood 2.3 % Carboxyhemoglobin Arterial Blood Methemoglobin 0.4 % Blood Gas Hemoglobin 13.8 G/DL Oxygen Delivery Device NASAL CANNULA Blood Gas Liter Flow 6 L/M Urine Color YELLOW Urine Turbidity CLEAR Urine pH 5.5 Urine Specific [place] 1.017 Urine Protein TRACE mg/dL Urine Glucose (UA) TRACE mg/dL Urine Ketones NEG mg/dL Urine Occult Blood NEG Urine Nitrite NEG Urine Bilirubin NEG Urine Urobilinogen LESS THAN 2.0 MG/DL Urine Leukocyte Esterase SMALL Urine RBC LESS THAN 1 /hpf Urine WBC 2 /hpf Urine Hyaline Casts 4 /lpf Urine Mucus FEW /lpf Microscopic Urinalysis Comment CATH-CULT NOT IND Nasal Screen MRSA (PCR) MRSA NOT DETECTED Test 01/27/17 01/28/17 20:49 04:34 Blood Gas Puncture Site RT RADIAL Blood Gas Patient Temperature 98.6 Blood Gas HCO3 42 mmol/L Blood Gas Base Excess 14.9 mmol/L Blood Gas Oxygen Saturation 91 % Arterial Blood pH 7.33 Arterial Blood Partial 82 mmHg Pressure CO2 Arterial Blood Partial 70 mmHg Pressure O2 Arterial Blood Oxygen Content 17.1 Vol % Arterial Blood 2.5 % Carboxyhemoglobin Arterial Blood Methemoglobin 1.0 % Blood Gas Hemoglobin 13.3 G/DL Oxygen Delivery Device BIPAP Blood Gas Ventilator Setting 15/8 RATE 8 Blood Gas Inspired Oxygen 60 % White Blood Count 8.2 TH/MM3 Red Blood Count 4.09 MIL/MM3 Hemoglobin 13.2 GM/DL Hematocrit 39.1 % Mean Corpuscular Volume 95.6 FL Mean Corpuscular Hemoglobin 32.3 PG Mean Corpuscular Hemoglobin 33.8 % Concent Red Cell Distribution Width 17.5 % Platelet Count 183 TH/MM3 Mean Platelet Volume 9.1 FL Neutrophils (%) (Auto) 92.6 % Lymphocytes (%) (Auto) 6.1 % Monocytes (%) (Auto) 1.1 % Eosinophils (%) (Auto) 0.1 % Basophils (%) (Auto) 0.1 % Neutrophils # (Auto) 7.6 TH/MM3 Lymphocytes # (Auto) 0.5 TH/MM3 Monocytes # (Auto) 0.1 TH/MM3 Eosinophils # (Auto) 0.0 TH/MM3 Basophils # (Auto) 0.0 TH/MM3 CBC Comment DIFF FINAL Differential Comment Sodium Level 145 MEQ/L Potassium Level 4.1 MEQ/L Chloride Level 100 MEQ/L Carbon Dioxide Level 42.2 MEQ/L Anion Gap 3 MEQ/L Blood Urea Nitrogen 37 MG/DL Creatinine 1.36 MG/DL Estimat Glomerular Filtration 52 ML/MIN Rate Random Glucose 200 MG/DL Calcium Level 9.0 MG/DL Phosphorus Level 2.5 MG/DL Magnesium Level 2.4 MG/DL Imaging Last Impressions Head CT 01/27/17 0000 Signed Impressions: Service Date/Time: Friday, January 27, 2017 14:38 - CONCLUSION: Negative for an acute process. Gerardo Louise MD FACR Chest X-Ray 01/27/17 0000 Signed Impressions: Service Date/Time: Friday, January 27, 2017 13:57 - CONCLUSION: Stable left basilar opacity likely representing atelectasis or consolidation with possible small pleural effusion. Esteban Pantoja MD Objective Remarks GENERAL: Patient is 66 yo lying in bed in NAD on BIPAP SKIN: Warm and dry. HEAD: Normocephalic. EYES: Prosthetic eyes NECK: Supple, trachea midline. No JVD or lymphadenopathy. CARDIOVASCULAR: Regular rate and rhythm without murmurs, gallops, or rubs. RESPIRATORY: Breath sounds equal bilaterally. No accessory muscle use. GASTROINTESTINAL: Abdomen soft, non-tender, nondistended. MUSCULOSKELETAL: No cyanosis, or edema. Neuro: More awake today A/P Assessment and Plan 1. Acute hypercapnic respiratory failure. 2. COPD exacerbation. 3. Mild Acute kidney injury. 4. Hyperglycemia. 5. Parkinson's dementia. 6. Hypothyroidism. 7. Gastroesophageal reflux disease. 8. Hypertension. 9. History of anxiety and depression. Plan: Neuro: Monitor neuro status closely and avoid any sedatives. CT brain in the ED negative for acute process. Pulm: Continue with oxygen and maintain sats >92%. Bronchodilators, Solu-Medrol 60 mg q.8h. On Pulmicort nebulizers 0.5 q.12h. Continue with BiPAP Will give Diamox 250 mg IV x1. CV: Monitor HR and BP and maintain MAP > 65 mmHg. : Monitor renal function Is and Os and electrolyte replacement as needed. On NS at 50 ml an hour. GI: On Protonix 40 mg IV daily. Speech eval, diet per speech. ID: Continue with abx( Levaquin) and monitor for signs of infections(fever and WBC). Check sputum culture. Heme: Monitor CBC. Endo: Increase SSI to medium scale with Accu-Chek q. 4-hour for glycemic control. GI prophylaxis with Protonix 40 mg daily and DVT prophylaxis with SCDs and heparin subcu. Level 3 Manuel Andujar MD Jan 28, 2017 07:31
[2017-01-28] MEDS: RESP: BUDESONIDE 0.5 MG/2 ML NEB NEB SCH ×2 (08:04→19:37)
[2017-01-28] MEDS: DOCUSATE SODIUM 50 MG/SENNA 8.6 MG TAB PO SCH ×2 (09:18→20:07)
[2017-01-28] MEDS: PANTOPRAZOLE SODIUM 40 MG VIAL IV SCH (09:35)
[2017-01-28] MEDS: SODIUM CHLOR 0.9% 1000 ML INJ 1,000 ML IV SCH (13:01)
[2017-01-28] MEDS: LEVOFLOXACIN 750 MG/DEXTROSE 150 ML IV SCH (17:16)
[2017-01-29] VITALS (12 sets, daily range): BP systolic 116–151; BP diastolic 63–77; PULSE 91–105; RESP 16–24; TEMP 97.6–99.1; O2SAT 75–99
[2017-01-29] MEDS: RESP: ALBUTEROL 2.5 MG/IPRATROPIUM 0.5 MG NEB (SCH) INH ×6 (03:32→23:25)
[2017-01-29] MEDS: CHLORHEXIDINE GLUCONATE 2 % 1 PACK (2 CLOTHS) TOP SCH (04:00)
[2017-01-29] MEDS: INSULIN NovoLIN REGULAR SUPPLEMENTAL SCALE SQ SCH ×6 (04:00→20:00)
[2017-01-29] MEDS: methylPREDNISolone SOD SUCC 125 MG/2 ML VIAL IV PUSH SCH ×2 (05:06→12:59)
[2017-01-29] MEDS: HEPARIN SODIUM - SQ 10,000 UNITS/ML VIAL SQ SCH ×2 (05:06→16:22)
[2017-01-29 05:46] LABS: AUTOMATED NEUTROPHIL # 10.8 TH/MM3 (1.8-7.7); BASOPHIL % 0.2 % (0.0-2.0); HEMATOCRIT 35.2 % (39.0-51.0); HEMO FLAGS DIFF FINAL; LYMPH % 5.5 % (9.0-44.0); LYMPHOCYTE # 0.7 TH/MM3 (1.0-4.8); MEAN CELL VOLUME 94.4 FL (80.0-100.0); MEAN CORPUSCULAR HGB CONC 33.9 % (32.0-36.0); NEUT % 91.3 % (16.0-70.0); PLATELET COUNT 187 TH/MM3 (150-450); RED BLOOD COUNT 3.73 MIL/MM3 (4.50-5.90); RED CELL DISTRIBUTION WIDTH 17.3 % (11.6-17.2); WHITE BLOOD COUNT 11.9 TH/MM3 (4.0-11.0)
[2017-01-29 06:12] LABS: BICARBONATE 35.6 MEQ/L (21.0-32.0); POTASSIUM 4.4 MEQ/L (3.5-5.1)
[2017-01-29] MEDS: RESP: BUDESONIDE 0.5 MG/2 ML NEB NEB SCH ×2 (07:50→19:33)
[2017-01-29] MEDS: DOCUSATE SODIUM 50 MG/SENNA 8.6 MG TAB PO SCH ×2 (08:17→20:41)
[2017-01-29] MEDS: PANTOPRAZOLE SODIUM 40 MG VIAL IV SCH (08:18)
[2017-01-29] MEDS: SODIUM CHLOR 0.9% 1000 ML INJ 1,000 ML IV SCH (12:59)
--- NOTE | 2017-01-29 14:05 | PD.TRANSFR ---
Transfer Summary Admission Date Jan 27, 2017 at 15:28 Transfer Date: Jan 29, 2017 Admitting Diagnosis acute hypercapnic resp failure Diagnoses: (1) Acute hypercapnic respiratory failure Diagnosis: Principal (2) COPD exacerbation Diagnosis: Principal (3) Encephalopathy Diagnosis: Principal (4) Acute kidney injury Diagnosis: Principal Transfer Summary/Subjective The patient is a 66-year-old male with past medical history of COPD on 5 liters nasal cannula at baseline, dementia, hypothyroidism, gastroesophageal reflux disease, hypertension who presented to [facility] ED from a local nursing facility with complaints of decreased mental status gradually over past one week. The patient is DNR and has history of Parkinson's dementia. On arrival ABG was performed on 6 liters nasal cannula which showed acute hypercapnic respiratory failure with a pH of 7.31, CO2 98, pAO2 89, bicarb 20, sats of 95%. He was subsequently placed on a BiPap currently at 15/8 with 45% FIO2 and saturation of 95%. His laboratory data significant for elevated CO2 at 45 on a BMP and mild acute kidney injury with creatinine level of 1.35. The patient is DNR per ED staff. The history is limited as the patient is a poor historian. 01/28 Patient remains on BIPAP overnight 15/8 with 55% FIO2. Repeat ABG last night showed improvements in his resp acidosis with CO2:82 from 98. Patient is no code DNR 01/29: Patient remains on nasal cannula. Conversing, do not appear to be in acute distress. Encephalopathy appears resolved Objective Vital Signs Date Time Temp Pulse Resp B/P Pulse Ox O2 Delivery O2 Flow Rate FiO2 01/29/17 07:54 95 Nasal Cannula 4.00 01/29/17 04:00 98.2 101 24 116/64 01/28/17 19:37 45 Intake and Output 01/28/17 01/28/17 01/29/17 08:00 16:00 00:00 Intake Total 352 ml 944 ml Output Total 225 ml 702 ml Balance 127 ml 242 ml Result Diagram: 01/29/17 0426 01/29/17 0426 Imaging Last Impressions Head CT 01/27/17 0000 Signed Impressions: Service Date/Time: Friday, January 27, 2017 14:38 - CONCLUSION: Negative for an acute process. Gerardo Louise MD FACR Chest X-Ray 01/27/17 0000 Signed Impressions: Service Date/Time: Friday, January 27, 2017 13:57 - CONCLUSION: Stable left basilar opacity likely representing atelectasis or consolidation with possible small pleural effusion. Esteban Pantoja MD Objective Remarks GENERAL: Patient is 66 yo lying in bed in NAD on NC SKIN: Warm and dry. HEAD: Normocephalic. EYES: Prosthetic eyes NECK: Supple, trachea midline. No JVD or lymphadenopathy. CARDIOVASCULAR: Regular rate and rhythm without murmurs, gallops, or rubs. RESPIRATORY: Breath sounds equal bilaterally. No accessory muscle use. GASTROINTESTINAL: Abdomen soft, non-tender, nondistended. MUSCULOSKELETAL: No cyanosis, or edema. Neuro: More awake today. No focal deficits A/P Assessment and Plan 1. Acute hypercapnic respiratory failure. 2. COPD exacerbation. 3. Mild Acute kidney injury. 4. Hyperglycemia. 5. Parkinson's dementia. 6. Hypothyroidism. 7. Gastroesophageal reflux disease. 8. Hypertension. 9. History of anxiety and depression. Plan: Neuro: Monitor neuro status closely and avoid any sedatives. CT brain in the ED negative for acute process. Pulm: Continue with oxygen and maintain sats >92%. Bronchodilators, Solu-Medrol 60 mg q.8h-reduce to 40 q12 Start Symbicort Spiriva. Continue with BiPAP s/p Diamox 250 mg IV x1. CV: Monitor HR and BP and maintain MAP > 65 mmHg. : Monitor renal function Is and Os and electrolyte replacement as needed. On NS at 50 ml an hour. GI: On Protonix 40 mg IV daily. Diet per speech ID: Continue with abx( Levaquin) and monitor for signs of infections(fever and WBC). F/U sputum culture. Heme: Monitor CBC. Endo: Increase SSI to medium scale with Accu-Chek q. 4-hour for glycemic control. GI prophylaxis with Protonix 40 mg daily and DVT prophylaxis with SCDs and heparin subcu. Level 2 Consult [facility] to assume care in a.m. Presley Orellana MD Jan 29, 2017 14:05
[2017-01-29] MEDS: LEVOFLOXACIN 750 MG/DEXTROSE 150 ML IV SCH (16:20)
[2017-01-29] MEDS: BUDESONIDE-FORMOTEROL 160/4.5 MCG INHALER INH SCH ×2 (16:22→20:41)
--- NOTE | 2017-01-29 20:37 | MB ---
cc: Nichelle IBANEZ M.D. DATE OF CONSULTATION 01/29/2017 HISTORY OF THE PRESENT ILLNESS Mr. Tamez is 66-year-old white male who has had repeated hospitalizations over the last 6-9 months for sepsis and pneumonia. Apparently lives in a local nursing facility, is severely disabled with blindness, dementia, chronic gastroesophageal reflux disease and as mentioned recurrent pneumonias with septicemia. He presented on this occasion from the nursing facility with altered mental status and increasing shortness of breath. He required BiPap initially but not intubation. In fact he is a DNR. He is improved. His mental status has actually cleared somewhat. He is on nasal cannula now and we are asked to see him in followup for continued care of underlying COPD and chronic respiratory failure. He is awake, alert, communicative. Provides some history. Mental status seems fairly lucid. The dementia may be mild. He does have Parkinson's disease. Chest x-ray yesterday revealed a stable left basilar opacity something that has been there chronically. He has been afebrile. His white count is 10-11,000. No cultures were done. Arterial blood gas though presentation 01/27 on BiPap pO2 was 70 with a PCO2 of 82 and a pH of 7.33. BUN is 50 with a creatinine of 1.4. PAST MEDICAL HISTORY Other than that noted above he has had: 1. Hypertension. 2. Hypothyroidism. 3. He has been blind since a very young age. 4. He also has Parkinson's disease. 5. He has a colostomy, not clear to me why. He simply says his bowels were not working well when that was done several years ago. ALLERGIES None listed. SOCIAL HISTORY Denies smoking. Lives in a nursing facility so it is unlikely he uses any type of alcohol or illicit drugs. FAMILY HISTORY Unknown to me. MEDICATIONS Reviewed in the EMR. PHYSICAL EXAMINATION GENERAL: Very comfortable at rest, communicative. No distress, very pleasant. VITAL SIGNS: Blood pressure 120/60, pulse is 90, respirations are 18, sat on 4 liters 95%. HEENT: Artificial eyes in place. Mucous membranes are moist. NECK: Veins are not distended. CHEST: Very minimal congestion. No wheezing. No harsh murmur audible S3. ABDOMEN: Obese but soft. EXTREMITIES: No pitting edema in the legs. Nail beds are pink. DISCUSSION Mr. Tamez presents again with what was thought to be early sepsis, although no cultures have been obtained, respiratory insufficiency acute on chronic respiratory failure, history of underlying COPD. Chest x-ray appears chronic and he is now stable off BiPap. Will continue his oxygen therapy. He is on oral antibiotics. Continue nebulized aerosol treatments and reduce his steroid dose. Further diagnostic and/or therapeutic intervention will depend on his ongoing clinical course and response to therapy. R. MD HARPREET Gonzalez/KK /6:21 PM /8:23 PM
[2017-01-29] MEDS: methylPREDNISolone SOD SUCC 40 MG/1 ML VIAL IV PUSH SCH (20:41)
[2017-01-30] VITALS (17 sets, daily range): BP systolic 97–152; BP diastolic 53–86; PULSE 79–108; RESP 16–26; TEMP 98.2–99; O2SAT 96–100
[2017-01-30] MEDS: RESP: ALBUTEROL 2.5 MG/IPRATROPIUM 0.5 MG NEB (SCH) INH ×5 (03:17→19:42)
--- NOTE | 2017-01-30 03:44 | RADRPT ---
EXAM DATE/TIME: 01/30/2017 02:54 [place] COMPARISON: CHEST SINGLE AP, January 27, 2017, 13:57. INDICATIONS : Shortness of breath, possible pulmonary disease. MEDICAL HISTORY : Hypertension. Chronic obstructive pulmonary disease. Gastroesophageal reflux disease. Thyroid dis ease CAD SURGICAL HISTORY : None. ENCOUNTER: Subsequent ACUITY: 3 days PAIN SCORE: 0/10 LOCATION: Bilateral chest FINDINGS: There are persistent patchy areas of infiltrate and left lower lung, slightly improved from prior wit h portions of the left hemidiaphragm no discernible. The right lung is clear. Heart is normal in si ze. CONCLUSION: Improving left lower lung infiltrates. Harjeet Broussard MD on January 30, 2017 at 3:42 Board Certified Radiologist. This report was verified electronically.
[2017-01-30] MEDS: INSULIN NovoLIN REGULAR SUPPLEMENTAL SCALE SQ SCH ×6 (04:00→20:00)
[2017-01-30] MEDS: CHLORHEXIDINE GLUCONATE 2 % 1 PACK (2 CLOTHS) TOP SCH (04:00)
[2017-01-30] MEDS: SODIUM CHLOR 0.9% 1000 ML INJ 1,000 ML IV SCH (04:39)
[2017-01-30] MEDS: HEPARIN SODIUM - SQ 10,000 UNITS/ML VIAL SQ SCH ×2 (04:39→16:35)
[2017-01-30 04:51] LABS: AUTOMATED NEUTROPHIL # 10.2 TH/MM3 (1.8-7.7); HEMATOCRIT 36.8 % (39.0-51.0); HEMO FLAGS DIFF FINAL; LYMPH % 5.7 % (9.0-44.0); LYMPHOCYTE # 0.7 TH/MM3 (1.0-4.8); MEAN CORPUSCULAR HEMOGLOBIN 32.5 PG (27.0-34.0); MEAN CORPUSCULAR HGB CONC 34.3 % (32.0-36.0); MONO % 5.8 % (0.0-8.0); NEUT % 88.5 % (16.0-70.0); PLATELET COUNT 192 TH/MM3 (150-450); RED BLOOD COUNT 3.87 MIL/MM3 (4.50-5.90); RED CELL DISTRIBUTION WIDTH 17.6 % (11.6-17.2); WHITE BLOOD COUNT 11.5 TH/MM3 (4.0-11.0)
[2017-01-30 05:07] LABS: ALKALINE PHOSPHATASE 60 U/L (45-117); ALT (GPT) 28 U/L (12-78); ANION GAP 6 MEQ/L (5-15); AST (GOT) 10 U/L (15-37); BICARBONATE 36.4 MEQ/L (21.0-32.0); BLOOD UREA NITROGEN 51 MG/DL (7-18); CHLORIDE 104 MEQ/L (98-107); GLOMERULAR FILTRATION RATE 50 ML/MIN (>89); MAGNESIUM 2.6 MG/DL (1.5-2.5); POTASSIUM 3.5 MEQ/L (3.5-5.1); SODIUM (NA) 146 MEQ/L (136-145); TOTAL BILIRUBIN ADULT 0.5 MG/DL (0.2-1.0)
[2017-01-30] MEDS: RESP: BUDESONIDE 0.5 MG/2 ML NEB NEB SCH ×2 (07:49→19:42)
--- NOTE | 2017-01-30 08:04 | HHI.PR ---
Subjective Remarks currently on Bipap. denies pain. afebrile. Objective Vitals Vital Signs Date Time Temp Pulse Resp B/P Pulse Ox O2 Delivery O2 Flow Rate FiO2 01/30/17 06:00 82 01/30/17 04:28 98 45 01/30/17 04:00 86 01/30/17 04:00 98.7 86 23 104/73 100 01/30/17 02:00 85 01/30/17 00:42 99 45 01/30/17 00:00 98.7 90 22 152/86 97 01/30/17 00:00 90 01/29/17 22:00 92 01/29/17 21:47 95 45 01/29/17 20:00 101 01/29/17 20:00 98.7 101 21 141/77 99 01/29/17 19:33 Nasal Cannula 6.00 01/29/17 18:00 102 01/29/17 16:00 98.3 97 16 151/71 90 01/29/17 16:00 97 01/29/17 16:00 94 01/29/17 14:00 94 01/29/17 12:00 97.6 105 18 118/63 90 01/29/17 12:00 105 01/29/17 10:00 101 I/O 01/29/17 01/29/17 01/29/17 01/30/17 01/30/17 01/30/17 07:00 15:00 23:00 07:00 15:00 23:00 Intake Total 422 ml 626 ml 846 ml 200 ml Output Total 301 ml 425 ml 400 ml 451 ml Balance 121 ml 201 ml 446 ml -251 ml Intake Oral 120 ml 240 ml 400 ml IV Total 302 ml 386 ml 446 ml 200 ml Output Urine Total 300 ml 425 ml 400 ml 450 ml Stool Total 1 ml 1 ml # Bowel Movements 2 Result Diagram: 01/30/17 0340 01/30/17 0340 Imaging Last Impressions Chest X-Ray 01/30/17 0600 Signed Impressions: Service Date/Time: January 02:54 - CONCLUSION: Improving left lower lung infiltrates. Harjeet Broussard MD Head CT 01/27/17 0000 Signed Impressions: Service Date/Time: Friday, January 27, 2017 14:38 - CONCLUSION: Negative for an acute process. Gerardo Louise MD FACR Objective Remarks GENERAL: on Bipap CARDIOVASCULAR: Regular rate and regular rhythm without murmurs, gallops, or rubs. RESPIRATORY: Clear to auscultation. Breath sounds equal bilaterally. No wheezes , rales, or rhonchi. GASTROINTESTINAL: Abdomen soft, non-tender, nondistended. Normal, active bowel sounds MUSCULOSKELETAL: Extremities without clubbing, cyanosis, or edema. NEURO: awake and alert Medications and IVs Current Medications Pantoprazole Sodium (Protonix Inj) 40 mg DAILY IV Last administered on 08:18; Start 01/27/17 at 17:15 Albuterol/ Ipratropium (Duoneb Neb) 1 ampule Q4HR NEB INH Last administered on 01/30/17 07:49; Start 01/27/17 at 17:00 Albuterol/ Ipratropium (Duoneb Neb) 1 ampule Q2HR NEB PRN INH WHEEZING; Start 01/27/17 at 15:45 Heparin Sodium (Porcine) (Heparin Inj) 5,000 units Q12H SQ Last administered on 01/30/17 04:39; Start 01/27/17 at 18:00 Miscellaneous Information 1 Q361D XX ; Start 01/27/17 at 15:45 Chlorhexidine Gluconate (Chlorhexidine 2% Cloth) 3 pack Taper DAILY@04 TOP Last administered on 01/30/17 04:00; Start 01/28/17 at 04:00; Stop 01/24/18 at 03:59 Chlorhexidine Gluconate (Chlorhexidine 2% Cloth) 3 pack UNSCH PRN TOP HYGIENIC CARE; Start 01/27/17 at 15:45 Senna/Docusate Sodium (Sangita-Colace) 1 tab BID PO Last administered on 20:41; Start 01/27/17 at 21:00 Magnesium Hydroxide (Milk Of Magnesia Liq) 30 ml Q12H PRN PO MILD - MODERATE CONSTIPATION; Start 01/27/17 at 15:45 Sennosides (Senokot) 17.2 mg Q12H PRN PO MODERATE - SEVERE CONSTIPATION; Start 01/27/17 at 15:45 Bisacodyl (Dulcolax Supp) 10 mg DAILY PRN RECTAL SEVERE CONSITIPATION; Start at 15:45 Lactulose (Lactulose Liq) 30 ml DAILY PRN PO SEVERE CONSITIPATION; Start at 15:45 Methylprednisolone Sodium Succinate (SoluMEDROL INJ) 60 mg Q8HR IV PUSH Last administered on 01/29/17 12:59; Start 01/27/17 at 17:15; Stop 01/29/17 at 18:47 ; Status DC Budesonide (Pulmicort Respule Neb) 0.5 mg Q12HR NEB NEB Last administered on 07:49; Start 01/27/17 at 20:00 Dextrose (D50w (Vial) Inj) 50 ml UNSCH PRN IV HYPOGLYCEMIA-SEE COMMENTS; Start 01/27/17 at 16:00; Stop 01/28/17 at 07:56; Status DC Glucagon (Glucagon Inj) 1 mg UNSCH PRN OTHER HYPOGLYCEMIA-SEE COMMENTS; Start 01/27/17 at 16:00; Stop 01/28/17 at 07:56; Status DC Insulin Human Regular 1 1 Q4HR SQ ; Start 01/27/17 at 17:15; Stop 01/28/17 at 07 :54; Status DC Levofloxacin/ Dextrose (Levaquin 500 Mg Premix Inj) 100 ml @ 100 mls/hr Q48H IV ; Start 01/27/17 at 16:00; Status UNV Acetazolamide Sodium 250 mg 250 mg ONCE ONCE IV PUSH Last administered on 01/27 17:15; Start 01/27/17 at 17:15; Stop 01/27/17 at 17:16; Status DC Sodium Chloride 1,000 ml @ 50 mls/hr Q20H IV Last administered on 01/30/17 04 :39; Start 01/27/17 at 18:00 Levofloxacin/ Dextrose (Levaquin 750 Mg Premix Inj) 150 ml @ 100 mls/hr Q24H IV Last administered on 01/29/17 16:20; Start 01/27/17 at 17:00 Acetazolamide Sodium (Diamox Inj) 250 mg ONCE ONCE IV PUSH Last administered on 01/28/17 09:19; Start 01/28/17 at 07:30; Stop 01/28/17 at 07:58; Status DC Dextrose (D50w (Vial) Inj) 50 ml UNSCH PRN IV HYPOGLYCEMIA-SEE COMMENTS; Start 01/28/17 at 07:30 Glucagon (Glucagon Inj) 1 mg UNSCH PRN OTHER HYPOGLYCEMIA-SEE COMMENTS; Start 01/28/17 at 07:30 Insulin Human Regular (NovoLIN R SUPPLEMENTAL SCALE) 1 Q4H SQ Last administered on 01/30/17 04:00; Start 01/28/17 at 08:00 Tiotropium [place] (Spiriva Inh) 18 mcg DAILY INH ; Start 01/30/17 at 09:00 Budesonide/ Formoterol Fumarate (Symbicort 160-4.5 Inh) 1 puff Q12HR INH Last administered on 01/29/17 20:41; Start 01/29/17 at 14:15 Methylprednisolone Sodium Succinate (SoluMEDROL INJ) 30 mg BID IV PUSH Last administered on 01/29/17 20:41; Start 01/29/17 at 21:00 A/P Assessment and Plan A/P - Acute hypercapnic respiratory failure due to COPD exacerbation. continue with steroids and antibiotic- continue neb treatment- BiPaP as needed- pulmonary consult appreciated. - chronic renal insufficiency- as his baseline- will monitor - Hyperglycemia- likely steroid-induced- continue accu-check with SSI -hypertension; hold home meds for now due to normal BP readings- continue to monitor. - Parkinson's dementia/ Hypothyroidism/ Gastroesophageal reflux disease- resume home med -DVT prophylaxis with subq heparin -DNR status Herman Doyle MD Jan 30, 2017 08:04
[2017-01-30] MEDS: methylPREDNISolone SOD SUCC 40 MG/1 ML VIAL IV PUSH SCH ×2 (08:12→20:38)
[2017-01-30] MEDS: TIOTROPIUM BROMIDE 18 MCG INH INH SCH (08:12)
[2017-01-30] MEDS: PANTOPRAZOLE SOD 40 MG DELAYED RELEASE TAB PO SCH (08:12)
[2017-01-30] MEDS: DOCUSATE SODIUM 50 MG/SENNA 8.6 MG TAB PO SCH ×2 (08:12→20:38)
[2017-01-30] MEDS: BUDESONIDE-FORMOTEROL 160/4.5 MCG INHALER INH SCH ×2 (08:12→20:50)
[2017-01-30] MEDS: LEVOTHYROXINE SODIUM 50 MCG TAB PO SCH (08:13)
[2017-01-30] MEDS: LEVOFLOXACIN 750 MG/DEXTROSE 150 ML IV SCH (16:35)
[2017-01-30] MEDS: ARIPiprazole 2 MG TAB PO SCH (20:38)
[2017-01-31] VITALS (12 sets, daily range): BP systolic 101–139; BP diastolic 65–88; PULSE 83–98; RESP 15–23; TEMP 98.1–98.4; O2SAT 90–100
[2017-01-31] MEDS: RESP: ALBUTEROL 2.5 MG/IPRATROPIUM 0.5 MG NEB (SCH) INH ×5 (00:26→14:24)
[2017-01-31] MEDS: SODIUM CHLOR 0.9% 1000 ML INJ 1,000 ML IV SCH ×2 (02:45→21:55)
[2017-01-31] MEDS: CHLORHEXIDINE GLUCONATE 2 % 1 PACK (2 CLOTHS) TOP SCH (04:00)
[2017-01-31] MEDS: INSULIN NovoLIN REGULAR SUPPLEMENTAL SCALE SQ SCH ×6 (04:00→20:00)
[2017-01-31] MEDS: LEVOTHYROXINE SODIUM 50 MCG TAB PO SCH (05:35)
[2017-01-31] MEDS: HEPARIN SODIUM - SQ 10,000 UNITS/ML VIAL SQ SCH ×2 (05:35→18:00)
[2017-01-31] MEDS: RESP: BUDESONIDE 0.5 MG/2 ML NEB NEB SCH ×2 (08:04→21:07)
[2017-01-31] MEDS: PANTOPRAZOLE SOD 40 MG DELAYED RELEASE TAB PO SCH (08:30)
[2017-01-31] MEDS: BUDESONIDE-FORMOTEROL 160/4.5 MCG INHALER INH SCH ×2 (08:30→21:53)
[2017-01-31] MEDS: TIOTROPIUM BROMIDE 18 MCG INH INH SCH (08:30)
[2017-01-31] MEDS: DOCUSATE SODIUM 50 MG/SENNA 8.6 MG TAB PO SCH ×2 (08:30→21:54)
[2017-01-31] MEDS: methylPREDNISolone SOD SUCC 40 MG/1 ML VIAL IV PUSH SCH ×2 (08:30→21:55)
--- NOTE | 2017-01-31 09:04 | HHI.PR ---
Subjective Remarks has much improved. now stable on oxygen via N/C @ 2 lit/min. denies pain. no fever. d/w the RN and no acute issues over night. Objective Vitals Vital Signs Date Time Temp Pulse Resp B/P Pulse Ox O2 Delivery O2 Flow Rate FiO2 01/31/17 08:05 98 Nasal Cannula 2.00 01/31/17 06:00 88 01/31/17 04:00 98.2 87 16 101/77 100 01/31/17 04:00 87 01/31/17 02:12 94 4.00 01/31/17 02:00 85 01/31/17 00:26 99 40 01/31/17 00:00 98.4 83 22 122/88 99 01/31/17 00:00 83 01/30/17 22:00 79 01/30/17 21:36 100 40 01/30/17 20:00 90 01/30/17 20:00 98.3 90 16 102/66 97 01/30/17 19:43 97 Nasal Cannula 4.00 01/30/17 18:00 94 01/30/17 16:00 98.2 98 26 130/84 96 01/30/17 16:00 93 01/30/17 14:00 108 01/30/17 12:00 98.3 104 23 97/53 98 01/30/17 12:00 105 01/30/17 10:00 97 I/O 01/30/17 01/30/17 01/30/17 01/31/17 01/31/17 01/31/17 07:00 15:00 23:00 07:00 15:00 23:00 Intake Total 200 ml 800 ml 398 ml 251 ml Output Total 451 ml 400 ml 325 ml 375 ml Balance -251 ml 400 ml 73 ml -124 ml Intake Oral 800 ml 240 ml IV Total 200 ml 158 ml 251 ml Output Urine Total 450 ml 400 ml 325 ml 375 ml Stool Total 1 ml Result Diagram: 01/30/17 0340 01/30/17 0340 Imaging Last Impressions Chest X-Ray 01/30/17 0600 Signed Impressions: Service Date/Time: January 02:54 - CONCLUSION: Improving left lower lung infiltrates. Harjeet Broussard MD Head CT 01/27/17 0000 Signed Impressions: Service Date/Time: Friday, January 27, 2017 14:38 - CONCLUSION: Negative for an acute process. Gerardo Louise MD FACR Objective Remarks GENERAL: on Bipap CARDIOVASCULAR: Regular rate and regular rhythm without murmurs, gallops, or rubs. RESPIRATORY: Clear to auscultation. Breath sounds equal bilaterally. No wheezes , rales, or rhonchi. GASTROINTESTINAL: Abdomen soft, non-tender, nondistended. Normal, active bowel sounds MUSCULOSKELETAL: Extremities without clubbing, cyanosis, or edema. NEURO: awake and alert Procedures none Medications and IVs Current Medications Pantoprazole Sodium (Protonix Inj) 40 mg DAILY IV Last administered on 08:18; Start 01/27/17 at 17:15; Stop 01/30/17 at 08:06; Status DC Albuterol/ Ipratropium (Duoneb Neb) 1 ampule Q4HR NEB INH Last administered on 01/31/17 08:04; Start 01/27/17 at 17:00 Albuterol/ Ipratropium (Duoneb Neb) 1 ampule Q2HR NEB PRN INH WHEEZING; Start 01/27/17 at 15:45 Heparin Sodium (Porcine) (Heparin Inj) 5,000 units Q12H SQ Last administered on 01/31/17 05:35; Start 01/27/17 at 18:00 Miscellaneous Information 1 Q361D XX ; Start 01/27/17 at 15:45 Chlorhexidine Gluconate (Chlorhexidine 2% Cloth) 3 pack Taper DAILY@04 TOP Last administered on 01/31/17 04:00; Start 01/28/17 at 04:00; Stop 01/24/18 at 03:59 Chlorhexidine Gluconate (Chlorhexidine 2% Cloth) 3 pack UNSCH PRN TOP HYGIENIC CARE; Start 01/27/17 at 15:45 Senna/Docusate Sodium (Sangita-Colace) 1 tab BID PO Last administered on 08:30; Start 01/27/17 at 21:00 Magnesium Hydroxide (Milk Of Magnesia Liq) 30 ml Q12H PRN PO MILD - MODERATE CONSTIPATION; Start 01/27/17 at 15:45 Sennosides (Senokot) 17.2 mg Q12H PRN PO MODERATE - SEVERE CONSTIPATION; Start 01/27/17 at 15:45 Bisacodyl (Dulcolax Supp) 10 mg DAILY PRN RECTAL SEVERE CONSITIPATION; Start at 15:45 Lactulose (Lactulose Liq) 30 ml DAILY PRN PO SEVERE CONSITIPATION; Start at 15:45 Methylprednisolone Sodium Succinate (SoluMEDROL INJ) 60 mg Q8HR IV PUSH Last administered on 01/29/17 12:59; Start 01/27/17 at 17:15; Stop 01/29/17 at 18:47 ; Status DC Budesonide (Pulmicort Respule Neb) 0.5 mg Q12HR NEB NEB Last administered on 08:04; Start 01/27/17 at 20:00 Dextrose (D50w (Vial) Inj) 50 ml UNSCH PRN IV HYPOGLYCEMIA-SEE COMMENTS; Start 01/27/17 at 16:00; Stop 01/28/17 at 07:56; Status DC Glucagon (Glucagon Inj) 1 mg UNSCH PRN OTHER HYPOGLYCEMIA-SEE COMMENTS; Start 01/27/17 at 16:00; Stop 01/28/17 at 07:56; Status DC Insulin Human Regular 1 1 Q4HR SQ ; Start 01/27/17 at 17:15; Stop 01/28/17 at 07 :54; Status DC Levofloxacin/ Dextrose (Levaquin 500 Mg Premix Inj) 100 ml @ 100 mls/hr Q48H IV ; Start 01/27/17 at 16:00; Status UNV Acetazolamide Sodium 250 mg 250 mg ONCE ONCE IV PUSH Last administered on 01/27 17:15; Start 01/27/17 at 17:15; Stop 01/27/17 at 17:16; Status DC Sodium Chloride 1,000 ml @ 50 mls/hr Q20H IV Last administered on 01/31/17 02 :45; Start 01/27/17 at 18:00 Levofloxacin/ Dextrose (Levaquin 750 Mg Premix Inj) 150 ml @ 100 mls/hr Q24H IV Last administered on 01/30/17 16:35; Start 01/27/17 at 17:00 Acetazolamide Sodium (Diamox Inj) 250 mg ONCE ONCE IV PUSH Last administered on 01/28/17 09:19; Start 01/28/17 at 07:30; Stop 01/28/17 at 07:58; Status DC Dextrose (D50w (Vial) Inj) 50 ml UNSCH PRN IV HYPOGLYCEMIA-SEE COMMENTS; Start 01/28/17 at 07:30 Glucagon (Glucagon Inj) 1 mg UNSCH PRN OTHER HYPOGLYCEMIA-SEE COMMENTS; Start 01/28/17 at 07:30 Insulin Human Regular (NovoLIN R SUPPLEMENTAL SCALE) 1 Q4H SQ Last administered on 01/31/17 04:00; Start 01/28/17 at 08:00 Tiotropium [place] (Spiriva Inh) 18 mcg DAILY INH Last administered on 08:30; Start 01/30/17 at 09:00 Budesonide/ Formoterol Fumarate (Symbicort 160-4.5 Inh) 1 puff Q12HR INH Last administered on 01/31/17 08:30; Start 01/29/17 at 14:15 Methylprednisolone Sodium Succinate (SoluMEDROL INJ) 30 mg BID IV PUSH Last administered on 01/31/17 08:30; Start 01/29/17 at 21:00 Aripiprazole (Abilify) 2 mg HS PO Last administered on 01/30/17 20:38; Start 01/30/17 at 21:00 Levothyroxine Sodium (Synthroid) 50 mcg DAILY@06 PO Last administered on 05:35; Start 01/30/17 at 08:07 Pantoprazole Sodium (Protonix) 40 mg DAILY PO Last administered on 01/31/17 08 :30; Start 01/30/17 at 09:00 A/P Assessment and Plan A/P - Acute hypercapnic respiratory failure due to COPD exacerbation- improving. continue with steroids and antibiotic- continue neb treatment- BiPaP as needed- pulmonary following. - chronic renal insufficiency- as his baseline- will monitor - Hyperglycemia- likely steroid-induced- continue accu-check with SSI -hypertension; hold home meds for now due to normal BP readings- continue to monitor. - Parkinson's dementia/ Hypothyroidism/ Gastroesophageal reflux disease- resumed home med -DVT prophylaxis with subq heparin -DNR status transfer to floor. d/w the Herman Molina MD Jan 31, 2017 09:04
[2017-01-31] MEDS: LEVOFLOXACIN 750 MG/DEXTROSE 150 ML IV SCH (18:25)
--- NOTE | 2017-01-31 19:52 | HHI.PR ---
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, Parkinson, dementia Feels better Denies SOB No Fever Occ cough Objective Vital Signs Vital Signs Date Time Temp Pulse Resp B/P Pulse Ox O2 Delivery O2 Flow Rate FiO2 01/31/17 16:00 98.4 98 18 139/67 96 01/31/17 12:00 92 01/31/17 12:00 98.1 91 15 131/65 93 01/31/17 08:05 98 Nasal Cannula 2.00 01/31/17 08:00 98.1 92 23 119/72 99 01/31/17 08:00 85 01/31/17 06:00 88 01/31/17 04:00 98.2 87 16 101/77 100 01/31/17 04:00 87 01/31/17 02:12 94 4.00 01/31/17 02:00 85 01/31/17 00:26 99 40 01/31/17 00:00 98.4 83 22 122/88 99 01/31/17 00:00 83 01/30/17 22:00 79 01/30/17 21:36 100 40 01/30/17 20:00 90 01/30/17 20:00 98.3 90 16 102/66 97 I/O 01/30/17 01/30/17 01/30/17 01/31/17 01/31/17 01/31/17 07:00 15:00 23:00 07:00 15:00 23:00 Intake Total 200 ml 800 ml 398 ml 251 ml 1296 ml Output Total 451 ml 400 ml 325 ml 375 ml 550 ml Balance -251 ml 400 ml 73 ml -124 ml 746 ml Intake Oral 800 ml 240 ml 900 ml IV Total 200 ml 158 ml 251 ml 396 ml Output Urine Total 450 ml 400 ml 325 ml 375 ml 550 ml Stool Total 1 ml Result Diagram: 01/30/17 0340 01/30/17 0340 Objective Remarks GENERAL: WBWN male,NAD SKIN: Warm and dry. HEAD: Normocephalic. EYES: Blind. NECK: Supple, trachea midline. No JVD or lymphadenopathy. CARDIOVASCULAR: Regular rate and rhythm without murmurs, gallops, or rubs. RESPIRATORY: Breath sounds equal bilaterally. No accessory muscle use. GASTROINTESTINAL: Abdomen soft, non-tender, nondistended. MUSCULOSKELETAL: No cyanosis, or edema. BACK: Nontender without obvious deformity. No CVA tenderness. A/P Assessment and Plan COPD Dementia Parkinsonism PLAN: Cont Abx Aerosol nebs Supplement 02 to keep sat >90% Cont Solumedrol. Juan Dasilva MD Jan 31, 2017 19:52
[2017-01-31] MEDS: ARIPiprazole 2 MG TAB PO SCH (21:54)
[2017-02-01] VITALS (9 sets, daily range): BP systolic 131–150; BP diastolic 72–86; PULSE 56–99; RESP 18–20; TEMP 97–98.9; O2SAT 94–97
[2017-02-01] MEDS: INSULIN NovoLIN REGULAR SUPPLEMENTAL SCALE SQ SCH ×7 (01:34→22:22)
[2017-02-01] MEDS: CHLORHEXIDINE GLUCONATE 2 % 1 PACK (2 CLOTHS) TOP SCH (04:25)
[2017-02-01] MEDS: LEVOTHYROXINE SODIUM 50 MCG TAB PO SCH (04:47)
[2017-02-01] MEDS: HEPARIN SODIUM - SQ 10,000 UNITS/ML VIAL SQ SCH ×2 (04:47→17:37)
[2017-02-01 07:58] LABS: BICARBONATE 33.4 MEQ/L (21.0-32.0); POTASSIUM 4.5 MEQ/L (3.5-5.1)
[2017-02-01] MEDS: methylPREDNISolone SOD SUCC 40 MG/1 ML VIAL IV PUSH SCH (09:12)
[2017-02-01] MEDS: DOCUSATE SODIUM 50 MG/SENNA 8.6 MG TAB PO SCH ×2 (09:12→20:27)
[2017-02-01] MEDS: PANTOPRAZOLE SOD 40 MG DELAYED RELEASE TAB PO SCH (09:12)
[2017-02-01] MEDS: BUDESONIDE-FORMOTEROL 160/4.5 MCG INHALER INH SCH ×2 (09:13→20:33)
[2017-02-01] MEDS: TIOTROPIUM BROMIDE 18 MCG INH INH SCH (09:13)
[2017-02-01] MEDS: RESP: BUDESONIDE 0.5 MG/2 ML NEB NEB SCH ×2 (09:16→20:11)
--- NOTE | 2017-02-01 11:30 | HHI.PR ---
Subjective Remarks in no acute distress. sob has improved. no fever. no new complaints. d/w the RN. Objective Vitals Vital Signs Date Time Temp Pulse Resp B/P Pulse Ox O2 Delivery O2 Flow Rate FiO2 02/01/17 10:05 91 02/01/17 08:00 98.9 95 18 138/72 94 02/01/17 04:00 98.7 99 20 142/80 95 02/01/17 00:00 98.3 91 20 150/86 95 01/31/17 21:07 90 Nasal Cannula 2.00 01/31/17 20:00 98.2 94 20 139/72 95 01/31/17 20:00 89 01/31/17 16:00 98.4 98 18 139/67 96 01/31/17 12:00 92 01/31/17 12:00 98.1 91 15 131/65 93 I/O 01/31/17 01/31/17 01/31/17 02/01/17 02/01/17 02/01/17 07:00 15:00 23:00 07:00 15:00 23:00 Intake Total 251 ml 1296 ml 591 ml 901 ml Output Total 375 ml 550 ml 400 ml 425 ml Balance -124 ml 746 ml 191 ml 476 ml Intake Oral 900 ml 360 ml 480 ml IV Total 251 ml 396 ml 231 ml 421 ml Output Urine Total 375 ml 550 ml 400 ml 425 ml # Bowel Movements 1 Result Diagram: 01/30/17 0340 02/01/17 0615 Imaging Last Impressions Chest X-Ray 01/30/17 0600 Signed Impressions: Service Date/Time: January 02:54 - CONCLUSION: Improving left lower lung infiltrates. Harjeet Broussard MD Head CT 01/27/17 0000 Signed Impressions: Service Date/Time: Friday, January 27, 2017 14:38 - CONCLUSION: Negative for an acute process. Gerardo Louise MD FACR Objective Remarks GENERAL: on Bipap CARDIOVASCULAR: Regular rate and regular rhythm without murmurs, gallops, or rubs. RESPIRATORY: Clear to auscultation. Breath sounds equal bilaterally. No wheezes , rales, or rhonchi. GASTROINTESTINAL: Abdomen soft, non-tender, nondistended. Normal, active bowel sounds MUSCULOSKELETAL: Extremities without clubbing, cyanosis, or edema. NEURO: awake and alert Procedures none Medications and IVs Current Medications Pantoprazole Sodium (Protonix Inj) 40 mg DAILY IV Last administered on 08:18; Start 01/27/17 at 17:15; Stop 01/30/17 at 08:06; Status DC Albuterol/ Ipratropium (Duoneb Neb) 1 ampule Q4HR NEB INH Last administered on 01/31/17 14:24; Start 01/27/17 at 17:00; Stop 01/31/17 at 17:00; Status DC Albuterol/ Ipratropium (Duoneb Neb) 1 ampule Q2HR NEB PRN INH WHEEZING; Start 01/27/17 at 15:45 Heparin Sodium (Porcine) (Heparin Inj) 5,000 units Q12H SQ Last administered on 02/01/17 04:47; Start 01/27/17 at 18:00 Miscellaneous Information 1 Q361D XX ; Start 01/27/17 at 15:45 Chlorhexidine Gluconate (Chlorhexidine 2% Cloth) 3 pack Taper DAILY@04 TOP Last administered on 02/01/17 04:25; Start 01/28/17 at 04:00; Stop 01/24/18 at 03:59 Chlorhexidine Gluconate (Chlorhexidine 2% Cloth) 3 pack UNSCH PRN TOP HYGIENIC CARE; Start 01/27/17 at 15:45 Senna/Docusate Sodium (Sangita-Colace) 1 tab BID PO Last administered on 02/01/17 09:12; Start 01/27/17 at 21:00 Magnesium Hydroxide (Milk Of Magnesia Liq) 30 ml Q12H PRN PO MILD - MODERATE CONSTIPATION; Start 01/27/17 at 15:45 Sennosides (Senokot) 17.2 mg Q12H PRN PO MODERATE - SEVERE CONSTIPATION; Start 01/27/17 at 15:45 Bisacodyl (Dulcolax Supp) 10 mg DAILY PRN RECTAL SEVERE CONSITIPATION; Start at 15:45 Lactulose (Lactulose Liq) 30 ml DAILY PRN PO SEVERE CONSITIPATION; Start at 15:45 Methylprednisolone Sodium Succinate (SoluMEDROL INJ) 60 mg Q8HR IV PUSH Last administered on 01/29/17 12:59; Start 01/27/17 at 17:15; Stop 01/29/17 at 18:47 ; Status DC Budesonide (Pulmicort Respule Neb) 0.5 mg Q12HR NEB NEB Last administered on 09:16; Start 01/27/17 at 20:00 Dextrose (D50w (Vial) Inj) 50 ml UNSCH PRN IV HYPOGLYCEMIA-SEE COMMENTS; Start 01/27/17 at 16:00; Stop 01/28/17 at 07:56; Status DC Glucagon (Glucagon Inj) 1 mg UNSCH PRN OTHER HYPOGLYCEMIA-SEE COMMENTS; Start 01/27/17 at 16:00; Stop 01/28/17 at 07:56; Status DC Insulin Human Regular 1 1 Q4HR SQ ; Start 01/27/17 at 17:15; Stop 01/28/17 at 07 :54; Status DC Levofloxacin/ Dextrose (Levaquin 500 Mg Premix Inj) 100 ml @ 100 mls/hr Q48H IV ; Start 01/27/17 at 16:00; Status UNV Acetazolamide Sodium 250 mg 250 mg ONCE ONCE IV PUSH Last administered on 01/27 17:15; Start 01/27/17 at 17:15; Stop 01/27/17 at 17:16; Status DC Sodium Chloride 1,000 ml @ 50 mls/hr Q20H IV Last administered on 01/31/17 21 :55; Start 01/27/17 at 18:00 Levofloxacin/ Dextrose (Levaquin 750 Mg Premix Inj) 150 ml @ 100 mls/hr Q24H IV Last administered on 01/31/17 18:25; Start 01/27/17 at 17:00 Acetazolamide Sodium (Diamox Inj) 250 mg ONCE ONCE IV PUSH Last administered on 01/28/17 09:19; Start 01/28/17 at 07:30; Stop 01/28/17 at 07:58; Status DC Dextrose (D50w (Vial) Inj) 50 ml UNSCH PRN IV HYPOGLYCEMIA-SEE COMMENTS; Start 01/28/17 at 07:30 Glucagon (Glucagon Inj) 1 mg UNSCH PRN OTHER HYPOGLYCEMIA-SEE COMMENTS; Start 01/28/17 at 07:30 Insulin Human Regular (NovoLIN R SUPPLEMENTAL SCALE) 1 Q4H SQ Last administered on 02/01/17 04:23; Start 01/28/17 at 08:00 Tiotropium Glennie (Spiriva Inh) 18 mcg DAILY INH Last administered on 09:13; Start 01/30/17 at 09:00 Budesonide/ Formoterol Fumarate (Symbicort 160-4.5 Inh) 1 puff Q12HR INH Last administered on 02/01/17 09:13; Start 01/29/17 at 14:15 Methylprednisolone Sodium Succinate (SoluMEDROL INJ) 30 mg BID IV PUSH Last administered on 02/01/17 09:12; Start 01/29/17 at 21:00 Aripiprazole (Abilify) 2 mg HS PO Last administered on 01/31/17 21:54; Start 01/30/17 at 21:00 Levothyroxine Sodium (Synthroid) 50 mcg DAILY@06 PO Last administered on 04:47; Start 01/30/17 at 08:07 Pantoprazole Sodium (Protonix) 40 mg DAILY PO Last administered on 02/01/17 09: 12; Start 01/30/17 at 09:00 A/P Assessment and Plan A/P - Acute hypercapnic respiratory failure due to COPD exacerbation- improving. continue with steroids and antibiotic- continue neb treatment- pulmonary following. - chronic renal insufficiency- as his baseline- will monitor dc antunez cath. - Hyperglycemia- likely steroid-induced- continue accu-check with SSI -hypertension; hold home meds for now due to normal BP readings- continue to monitor. - Parkinson's dementia/ Hypothyroidism/ Gastroesophageal reflux disease- resumed home med -DVT prophylaxis with subq heparin -DNR status Discharge Planning dc to SNF when cleared by pulmonary. f/u; pcp and pulmonary. see med list. d/w the patient and RN. time spent 35 min. Herman Doyle MD Feb 01, 2017 11:30
[2017-02-01] MEDS ORDERED: NOVOLOGP2 SQ (11:35)
[2017-02-01] MEDS ORDERED: LEVA500T20 PO (11:35)
[2017-02-01] MEDS ORDERED: SPIRCAP INH (11:35)
[2017-02-01] MEDS ORDERED: PRED5TAB PO (11:35)
--- NOTE | 2017-02-01 11:36 | HHI.DCPOC ---
Discharge Care Plan Diagnosis: (1) COPD exacerbation Your Health Problems Are: Shortness of Breath Goals to Promote Your Health * To prevent worsening of your condition and complications * To maintain your health at the optimal level Directions to Meet Your Goals Take your medications as prescribed Follow your dietary instruction Follow activity as directed Keep your appointments as scheduled Take your immunizations and boosters as scheduled If your symptoms worsen call your PCP, if no PCP go to Urgent Care Center or Emergency Room Smoking is Dangerous to Your Health. Avoid second hand smoke Call the 24-hour hour crisis hotline for domestic abuse at Herman Doyle MD Feb 01, 2017 11:36
--- NOTE | 2017-02-01 11:37 | HHI.DS ---
Discharge Summary Admission Date Jan 27, 2017 at 15:28 Discharge Date: Feb 01, 2017 Admitting Diagnosis acute hypercapnic resp failure (1) Acute hypercapnic respiratory failure ICD Code: J96.02 Diagnosis: Principal (2) COPD exacerbation ICD Code: J44.1 Diagnosis: Principal (3) Encephalopathy ICD Code: G93.40 Diagnosis: Principal (4) Acute kidney injury ICD Code: N17.9 Diagnosis: Principal Procedures none Brief History - From Admission The patient is a 66-year-old male with past medical history of COPD on 5 liters nasal cannula at baseline, dementia, hypothyroidism, gastroesophageal reflux disease, hypertension who presented to [facility] ED from a local nursing facility with complaints of decreased mental status gradually over past one week. The patient is DNR and has history of Parkinson's dementia. On arrival ABG was performed on 6 liters nasal cannula which showed acute hypercapnic respiratory failure with a pH of 7.31, CO2 98, pAO2 89, bicarb 20, sats of 95%. He was subsequently placed on a BiPap CBC/BMP: 01/30/17 0340 02/01/17 0615 Significant Findings Laboratory Tests Test 01/30/17 02/01/17 03:40 06:15 White Blood Count 11.5 TH/MM3 (4.0-11.0) Red Blood Count 3.87 MIL/MM3 (4.50-5.90) Hemoglobin 12.6 GM/DL (13.0-17.0) Hematocrit 36.8 % (39.0-51.0) Red Cell Distribution Width 17.6 % (11.6-17.2) Neutrophils (%) (Auto) 88.5 % (16.0-70.0) Lymphocytes (%) (Auto) 5.7 % (9.0-44.0) Neutrophils # (Auto) 10.2 TH/MM3 (1.8-7.7) Lymphocytes # (Auto) 0.7 TH/MM3 (1.0-4.8) Sodium Level 146 MEQ/L (136-145) Carbon Dioxide Level 36.4 MEQ/L 33.4 MEQ/L (21.0-32.0) (21.0-32.0) Blood Urea Nitrogen 51 MG/DL (7-18) 39 MG/DL (7-18) Creatinine 1.40 MG/DL (0.60-1.30) Estimat Glomerular Filtration 50 ML/MIN (>89) 69 ML/MIN (>89) Rate Random Glucose 165 MG/DL 153 MG/DL (74-106) (74-106) Magnesium Level 2.6 MG/DL (1.5-2.5) Aspartate Amino Transf 10 U/L (15-37) (AST/SGOT) Albumin 2.7 GM/DL (3.4-5.0) Anion Gap 2 MEQ/L (5-15) Calcium Level 7.8 MG/DL (8.5-10.1) Imaging Last Impressions Chest X-Ray 01/30/17 0600 Signed Impressions: Service Date/Time: January 02:54 - CONCLUSION: Improving left lower lung infiltrates. Harjeet Broussard MD Head CT 01/27/17 0000 Signed Impressions: Service Date/Time: Friday, January 27, 2017 14:38 - CONCLUSION: Negative for an acute process. Gerardo Louise MD FACR PE at Discharge GENERAL: on Bipap CARDIOVASCULAR: Regular rate and regular rhythm without murmurs, gallops, or rubs. RESPIRATORY: Clear to auscultation. Breath sounds equal bilaterally. No wheezes , rales, or rhonchi. GASTROINTESTINAL: Abdomen soft, non-tender, nondistended. Normal, active bowel sounds MUSCULOSKELETAL: Extremities without clubbing, cyanosis, or edema. NEURO: awake and alert Transfer Summary The patient is a 66-year-old male with past medical history of COPD on 5 liters nasal cannula at baseline, dementia, hypothyroidism, gastroesophageal reflux disease, hypertension who presented to [facility] ED from a local nursing facility with complaints of decreased mental status gradually over past one week. The patient is DNR and has history of Parkinson's dementia. On arrival ABG was performed on 6 liters nasal cannula which showed acute hypercapnic respiratory failure with a pH of 7.31, CO2 98, pAO2 89, bicarb 20, sats of 95%. He was subsequently placed on a BiPap currently at 15/8 with 45% FIO2 and saturation of 95%. His laboratory data significant for elevated CO2 at 45 on a BMP and mild acute kidney injury with creatinine level of 1.35. The patient is DNR per ED staff. The history is limited as the patient is a poor historian. 01/28 Patient remains on BIPAP overnight 15/8 with 55% FIO2. Repeat ABG last night showed improvements in his resp acidosis with CO2:82 from 98. Patient is no code DNR 01/29: Patient remains on nasal cannula. Conversing, do not appear to be in acute distress. Encephalopathy appears resolved Hospital Course - Acute hypercapnic respiratory failure due to COPD exacerbation- improving. continue with steroids and antibiotic- continue neb treatment- pulmonary following. - chronic renal insufficiency- as his baseline- will monitor dc antunez cath. - Hyperglycemia- likely steroid-induced- continue accu-check with SSI -hypertension; hold home meds for now due to normal BP readings- continue to monitor. - Parkinson's dementia/ Hypothyroidism/ Gastroesophageal reflux disease- resumed home med -DVT prophylaxis with subq heparin -DNR status Pt Condition on Discharge: Fair Discharge Disposition: Discharge to SNF Discharge Time: > 30 minutes Discharge Instructions DIET: Follow Instructions for: Heart Healthy Diet Speech Therapy-Diet Recommends: Regular Activities you can perform: Regular-No Restrictions Follow up Referrals: PCP Follow-up Pulmonology New Medications: Insulin Aspart Inj (Novolog Inj) 1,000 Unit/10 Ml Vial 1-9 UNITS SQ ACHS units; sugars less than 70,(0)units; sugars 150-199,(1) unit; sugars 200-249,(3) units; sugars 250-299,(5) units; sugars 300-349,(7) units; sugars greater than 349,(9) units Blood Sugar Management #10 Ref 0 ML Levofloxacin (Levaquin) 500 Mg Tablet 500 MG PO DAILY infection Days 3 Ref 0 TAB Prednisone (Prednisone) 5 Mg Tab 5 MG PO DIRECTED 40 mg po daily for two days then 30 mg po daily for two days then 20 mg po daily for two days then 10 mg po daily for two days then 5 mg po daily for two days then stop. copd Days 10 Ref 0 TAB Tiotropium Inh (Spiriva Handihaler) 18 Mcg Cap 18 MCG INH DAILY copd #1 Ref 0 CAP Continued Medications: Acetaminophen (Mapap) 325 Mg Tab 650 MG PO Q4HR PRN PAIN/TEMP>100.4 Ref 0 TAB Albuterol Neb (Albuterol Neb) 2.5 Mg/3 Ml Neb 2.5 MG NEB Q2HR NEB PRN SHORTNESS OF BREATH #60 NEBULE Amlodipine (Amlodipine) 2.5 Mg Tab 2.5 MG PO DAILY HTN #30 Ref 0 TAB Aripiprazole (Abilify) 2 Mg Tab 2 MG PO HS SCHIZOAFFECTIVE DISORDER #30 Ref 0 TAB Budesonide Neb (Pulmicort Respules) 0.5 Mg/2 Ml Neb 0.5 MG NEB Q12HR NEB #60 AMPULE Calcium Carbonate (Antacid) (Tums) 500 Mg Chew 1000 MG CHEW BID WITH MEALS Heartburn Management Ref 0 TAB Cholecalciferol (Vitamin D-1000) 1,000 Unit Tab 1000 UNITS PO DAILY Nutritional Supplement #1 Ref 0 BOTTLE Docusate Sodium (Docusate Sodium) 100 Mg Cap 100 MG PO HS Prevent Constipation #60 Ref 0 CAP Fluticasone-Vilanterol Inh (Breo Ellipta Inh) 100-25 Mcg/Act Inh 1 PUFF INH DAILY Use daily at the same time. COPD #1 Ref 0 INHALER Furosemide (Furosemide) 20 Mg Tab 20 MG PO DAILY EDEMA #60 Ref 0 TAB Levothyroxine (Levothyroxine) 50 Mcg Tab 50 MCG PO DAILY Thyroid #30 Ref 0 TAB Ondansetron (Ondansetron) 4 Mg Tab 4 MG PO Q6HR PRN NAUSEA Simethicone (Gas Relief Maximum Streng) 125 Mg Chw 125 MG PO Q8HR PRN GAS PAIN Discontinued Medications: Spironolactone (Spironolactone) 25 Mg Tab 25 MG PO DAILY EDEMA #30 Ref 0 TAB Herman Doyle MD Feb 01, 2017 11:37
--- NOTE | 2017-02-01 15:46 | HHI.PR ---
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, Parkinson, dementia Feels better Denies SOB No Fever Occ cough On NC, breathing well, denies sob Objective Vital Signs Vital Signs Date Time Temp Pulse Resp B/P Pulse Ox O2 Delivery O2 Flow Rate FiO2 02/01/17 12:00 98.9 95 18 144/75 94 02/01/17 10:05 91 02/01/17 08:00 98.9 95 18 138/72 94 02/01/17 04:00 98.7 99 20 142/80 95 02/01/17 00:00 98.3 91 20 150/86 95 01/31/17 21:07 90 Nasal Cannula 2.00 01/31/17 20:00 98.2 94 20 139/72 95 01/31/17 20:00 89 01/31/17 16:00 98.4 98 18 139/67 96 I/O 01/31/17 01/31/17 01/31/17 02/01/17 02/01/17 02/01/17 07:00 15:00 23:00 07:00 15:00 23:00 Intake Total 251 ml 1296 ml 591 ml 901 ml 40 ml Output Total 375 ml 550 ml 400 ml 425 ml 600 ml Balance -124 ml 746 ml 191 ml 476 ml -560 ml Intake Oral 900 ml 360 ml 480 ml IV Total 251 ml 396 ml 231 ml 421 ml 40 ml Output Urine Total 375 ml 550 ml 400 ml 425 ml 600 ml # Bowel Movements 1 Result Diagram: 01/30/17 0340 02/01/17 0615 Objective Remarks GENERAL: WBWN male,NAD SKIN: Warm and dry. HEAD: Normocephalic. EYES: Blind. NECK: Supple, trachea midline. No JVD or lymphadenopathy. CARDIOVASCULAR: Regular rate and rhythm without murmurs, gallops, or rubs. RESPIRATORY: Breath sounds equal bilaterally. No accessory muscle use. GASTROINTESTINAL: Abdomen soft, non-tender, nondistended. MUSCULOSKELETAL: No cyanosis, or edema. BACK: Nontender without obvious deformity. No CVA tenderness. A/P Assessment and Plan COPD Dementia Parkinsonism PLAN: Cont Abx Aerosol nebs Supplement 02 to keep sat >90% DC Solumedrol Pred 10 mg tid Juan Dasilva MD Feb 01, 2017 15:46
[2017-02-01] MEDS: LEVOFLOXACIN 750 MG/DEXTROSE 150 ML IV SCH (16:07)
[2017-02-01] MEDS: predniSONE 10 MG TAB PO SCH (17:37)
[2017-02-01] MEDS: ARIPiprazole 2 MG TAB PO SCH (20:27)
[2017-02-02] VITALS: BP 123/65; PULSE 72; RESP 20; TEMP 97.6; O2SAT 95
[2017-02-02] MEDS: CHLORHEXIDINE GLUCONATE 2 % 1 PACK (2 CLOTHS) TOP SCH (01:40)
[2017-02-02 02:37] VITALS: O2SAT 96
[2017-02-02] MEDS: INSULIN NovoLIN REGULAR SUPPLEMENTAL SCALE SQ SCH ×3 (03:31→11:55)
[2017-02-02 04:00] VITALS: BP 146/78; PULSE 85; RESP 20; TEMP 97.6; O2SAT 95
[2017-02-02] MEDS: LEVOTHYROXINE SODIUM 50 MCG TAB PO SCH (06:29)
[2017-02-02] MEDS: HEPARIN SODIUM - SQ 10,000 UNITS/ML VIAL SQ SCH (06:29)
[2017-02-02] MEDS: RESP: BUDESONIDE 0.5 MG/2 ML NEB NEB SCH (07:37)
[2017-02-02 07:38] VITALS: O2SAT 98
[2017-02-02 08:00] VITALS: BP 163/81; PULSE 100; PULSE 88; RESP 18; TEMP 97.6; O2SAT 97
[2017-02-02] MEDS: BUDESONIDE-FORMOTEROL 160/4.5 MCG INHALER INH SCH (09:12)
[2017-02-02] MEDS: predniSONE 10 MG TAB PO SCH ×2 (09:12→11:55)
[2017-02-02] MEDS: DOCUSATE SODIUM 50 MG/SENNA 8.6 MG TAB PO SCH (09:12)
[2017-02-02] MEDS: PANTOPRAZOLE SOD 40 MG DELAYED RELEASE TAB PO SCH (09:12)
[2017-02-02] MEDS: TIOTROPIUM BROMIDE 18 MCG INH INH SCH (09:12)
--- NOTE | 2017-02-02 11:12 | HHI.PR ---
Subjective Remarks in no acute distress. stable on two liters of oxygen via N/C. has occasional cough. no fever. Objective Vitals Vital Signs Date Time Temp Pulse Resp B/P Pulse Ox O2 Delivery O2 Flow Rate FiO2 02/02/17 08:00 88 02/02/17 08:00 97.6 100 18 163/81 97 02/02/17 07:38 98 Nasal Cannula 2.00 02/02/17 07:30 97 Nasal Cannula 2.00 02/02/17 04:58 Nasal Cannula 2.00 02/02/17 04:00 97.6 85 20 146/78 95 02/02/17 02:37 96 40 02/02/17 00:00 97.6 72 20 123/65 95 02/01/17 22:01 95 45 02/01/17 22:00 Bi-Pap 40 02/01/17 20:34 95 Nasal Cannula 2.00 02/01/17 20:00 97.8 56 20 131/83 96 02/01/17 20:00 Nasal Cannula 2.00 02/01/17 20:00 89 02/01/17 16:00 Nasal Cannula 2.00 02/01/17 16:00 97.0 91 20 136/75 97 02/01/17 12:00 98.9 95 18 144/75 94 I/O 02/01/17 02/01/17 02/01/17 02/02/17 02/02/17 02/02/17 07:00 15:00 23:00 07:00 15:00 23:00 Intake Total 901 ml 520 ml 240 ml 0 ml Output Total 425 ml 600 ml Balance 476 ml -80 ml 240 ml 0 ml Intake Oral 480 ml 480 ml 240 ml IV Total 421 ml 40 ml 0 ml Output Urine Total 425 ml 600 ml # Voids 1 1 # Bowel Movements 1 0 1 Result Diagram: 01/30/17 0340 02/01/17 0615 Imaging Last Impressions Chest X-Ray 01/30/17 0600 Signed Impressions: Service Date/Time: January 02:54 - CONCLUSION: Improving left lower lung infiltrates. Harjeet Broussard MD Head CT 01/27/17 0000 Signed Impressions: Service Date/Time: Friday, January 27, 2017 14:38 - CONCLUSION: Negative for an acute process. Gerardo Louise MD FACR Objective Remarks GENERAL: on Bipap CARDIOVASCULAR: Regular rate and regular rhythm without murmurs, gallops, or rubs. RESPIRATORY: Clear to auscultation. Breath sounds equal bilaterally. No wheezes , rales, or rhonchi. GASTROINTESTINAL: Abdomen soft, non-tender, nondistended. Normal, active bowel sounds MUSCULOSKELETAL: Extremities without clubbing, cyanosis, or edema. NEURO: awake and alert Procedures none Medications and IVs Current Medications Pantoprazole Sodium (Protonix Inj) 40 mg DAILY IV Last administered on 08:18; Start 01/27/17 at 17:15; Stop 01/30/17 at 08:06; Status DC Albuterol/ Ipratropium (Duoneb Neb) 1 ampule Q4HR NEB INH Last administered on 01/31/17 14:24; Start 01/27/17 at 17:00; Stop 01/31/17 at 17:00; Status DC Albuterol/ Ipratropium (Duoneb Neb) 1 ampule Q2HR NEB PRN INH WHEEZING; Start 01/27/17 at 15:45 Heparin Sodium (Porcine) (Heparin Inj) 5,000 units Q12H SQ Last administered on 02/02/17 06:29; Start 01/27/17 at 18:00 Miscellaneous Information 1 Q361D XX ; Start 01/27/17 at 15:45 Chlorhexidine Gluconate (Chlorhexidine 2% Cloth) Taper DAILY@04 TOP Last administered on 02/01/17 04:25; Start 01/28/17 at 04:00; Stop 01/24/18 at 03:59 Chlorhexidine Gluconate (Chlorhexidine 2% Cloth) 3 pack UNSCH PRN TOP HYGIENIC CARE; Start 01/27/17 at 15:45 Senna/Docusate Sodium (Sangita-Colace) 1 tab BID PO Last administered on 02/02/17 09:12; Start 01/27/17 at 21:00 Magnesium Hydroxide (Milk Of Magnesia Liq) 30 ml Q12H PRN PO MILD - MODERATE CONSTIPATION; Start 01/27/17 at 15:45 Sennosides (Senokot) 17.2 mg Q12H PRN PO MODERATE - SEVERE CONSTIPATION; Start 01/27/17 at 15:45 Bisacodyl (Dulcolax Supp) 10 mg DAILY PRN RECTAL SEVERE CONSITIPATION; Start at 15:45 Lactulose (Lactulose Liq) 30 ml DAILY PRN PO SEVERE CONSITIPATION; Start at 15:45 Methylprednisolone Sodium Succinate (SoluMEDROL INJ) 60 mg Q8HR IV PUSH Last administered on 01/29/17 12:59; Start 01/27/17 at 17:15; Stop 01/29/17 at 18:47 ; Status DC Budesonide (Pulmicort Respule Neb) 0.5 mg Q12HR NEB NEB Last administered on 07:37; Start 01/27/17 at 20:00 Dextrose (D50w (Vial) Inj) 50 ml UNSCH PRN IV HYPOGLYCEMIA-SEE COMMENTS; Start 01/27/17 at 16:00; Stop 01/28/17 at 07:56; Status DC Glucagon (Glucagon Inj) 1 mg UNSCH PRN OTHER HYPOGLYCEMIA-SEE COMMENTS; Start 01/27/17 at 16:00; Stop 01/28/17 at 07:56; Status DC Insulin Human Regular 1 1 Q4HR SQ ; Start 01/27/17 at 17:15; Stop 01/28/17 at 07 :54; Status DC Levofloxacin/ Dextrose (Levaquin 500 Mg Premix Inj) 100 ml @ 100 mls/hr Q48H IV ; Start 01/27/17 at 16:00; Status UNV Acetazolamide Sodium 250 mg 250 mg ONCE ONCE IV PUSH Last administered on 01/27 17:15; Start 01/27/17 at 17:15; Stop 01/27/17 at 17:16; Status DC Sodium Chloride 1,000 ml @ 50 mls/hr Q20H IV Last administered on 01/31/17 21 :55; Start 01/27/17 at 18:00; Stop 02/01/17 at 11:42; Status DC Levofloxacin/ Dextrose (Levaquin 750 Mg Premix Inj) 150 ml @ 100 mls/hr Q24H IV Last administered on 02/01/17 16:07; Start 01/27/17 at 17:00 Acetazolamide Sodium (Diamox Inj) 250 mg ONCE ONCE IV PUSH Last administered on 01/28/17 09:19; Start 01/28/17 at 07:30; Stop 01/28/17 at 07:58; Status DC Dextrose (D50w (Vial) Inj) 50 ml UNSCH PRN IV HYPOGLYCEMIA-SEE COMMENTS; Start 01/28/17 at 07:30 Glucagon (Glucagon Inj) 1 mg UNSCH PRN OTHER HYPOGLYCEMIA-SEE COMMENTS; Start 01/28/17 at 07:30 Insulin Human Regular (NovoLIN R SUPPLEMENTAL SCALE) 1 Q4H SQ Last administered on 02/02/17 06:29; Start 01/28/17 at 08:00 Tiotropium Evart (Spiriva Inh) 18 mcg DAILY INH Last administered on 09:12; Start 01/30/17 at 09:00 Budesonide/ Formoterol Fumarate (Symbicort 160-4.5 Inh) 1 puff Q12HR INH Last administered on 02/02/17 09:12; Start 01/29/17 at 14:15 Methylprednisolone Sodium Succinate (SoluMEDROL INJ) 30 mg BID IV PUSH Last administered on 02/01/17 09:12; Start 01/29/17 at 21:00; Stop 02/01/17 at 15:47; Status DC Aripiprazole (Abilify) 2 mg HS PO Last administered on 02/01/17 20:27; Start at 21:00 Levothyroxine Sodium (Synthroid) 50 mcg DAILY@06 PO Last administered on 06:29; Start 01/30/17 at 08:07 Pantoprazole Sodium (Protonix) 40 mg DAILY PO Last administered on 02/02/17 09: 12; Start 01/30/17 at 09:00 Prednisone (Deltasone) 10 mg TID PO Last administered on 02/02/17 09:12; Start 02/01/17 at 18:00 A/P Assessment and Plan A/P - Acute hypercapnic respiratory failure due to COPD exacerbation- improved. continue with steroids and antibiotic- continue neb treatment- pulmonary following. - chronic renal insufficiency- as his baseline- will monitor - Hyperglycemia- likely steroid-induced- continue accu-check with SSI -hypertension; resume amlodipine- f/u as outpatient. - Parkinson's dementia/ Hypothyroidism/ Gastroesophageal reflux disease- resumed home med -DVT prophylaxis with subq heparin -DNR status Discharge Planning dc to SNF today. f/u; pcp and pulmonary. see med list. d/w the patient . d/w the RN. d/w . time spent 35 min. Herman Doyle MD Feb 02, 2017 11:12
[2017-02-02 12:00] VITALS: BP 157/86; PULSE 97; RESP 20; TEMP 97; O2SAT 97
--- NOTE | 2017-02-02 14:29 | HHI.PR ---
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, Parkinson, dementia Feels better Denies SOB No Fever Occ cough Objective Vital Signs Vital Signs Date Time Temp Pulse Resp B/P Pulse Ox O2 Delivery O2 Flow Rate FiO2 02/02/17 12:00 97.0 97 20 157/86 97 02/02/17 08:00 88 02/02/17 08:00 97.6 100 18 163/81 97 02/02/17 07:38 98 Nasal Cannula 2.00 02/02/17 07:30 97 Nasal Cannula 2.00 02/02/17 04:58 Nasal Cannula 2.00 02/02/17 04:00 97.6 85 20 146/78 95 02/02/17 02:37 96 40 02/02/17 00:00 97.6 72 20 123/65 95 02/01/17 22:01 95 45 02/01/17 22:00 Bi-Pap 40 02/01/17 20:34 95 Nasal Cannula 2.00 02/01/17 20:00 97.8 56 20 131/83 96 02/01/17 20:00 Nasal Cannula 2.00 02/01/17 20:00 89 02/01/17 16:00 Nasal Cannula 2.00 02/01/17 16:00 97.0 91 20 136/75 97 I/O 02/01/17 02/01/17 02/01/17 02/02/17 02/02/17 02/02/17 07:00 15:00 23:00 07:00 15:00 23:00 Intake Total 901 ml 520 ml 240 ml 0 ml Output Total 425 ml 600 ml Balance 476 ml -80 ml 240 ml 0 ml Intake Oral 480 ml 480 ml 240 ml IV Total 421 ml 40 ml 0 ml Output Urine Total 425 ml 600 ml # Voids 1 1 # Bowel Movements 1 0 1 Result Diagram: 01/30/17 0340 02/01/17 0615 Objective Remarks GENERAL: WBWN male,NAD SKIN: Warm and dry. HEAD: Normocephalic. EYES: Blind. NECK: Supple, trachea midline. No JVD or lymphadenopathy. CARDIOVASCULAR: Regular rate and rhythm without murmurs, gallops, or rubs. RESPIRATORY: Breath sounds equal bilaterally. No accessory muscle use. GASTROINTESTINAL: Abdomen soft, non-tender, nondistended. MUSCULOSKELETAL: No cyanosis, or edema. BACK: Nontender without obvious deformity. No CVA tenderness. A/P Assessment and Plan COPD Dementia Parkinsonism PLAN: Cont Abx Aerosol nebs Supplement 02 to keep sat >90% Pred 10 mg tid Stable from pulm standpoint to dc Juan Dasilva MD Feb 02, 2017 14:29
== END 2017-02-02 15:50 | DRG 190 ==
LOC: NEPC 13:36 → NEDA 15:28 → HIMN 18:25 → HIME 01-29 17:30 → N04A 01-31 14:42
PROVIDERS: ADMIT Internal Medicine; ATTEND Internal Medicine
PROC: 5A09457 Assistance with Respiratory Ventilation, 24-96 Consecutive Hours, Continuous Positive Airway Pressure (ICD-10-PCS; principal; 2017-01-27)
DX: J44.1 Chronic obstructive pulmonary disease with (acute) exacerbation (principal); J96.22 Acute and chronic respiratory failure with hypercapnia; N17.9 Acute kidney failure, unspecified; G93.40 Encephalopathy, unspecified; Z99.81 Dependence on supplemental oxygen; G20 Parkinson's disease; F02.80 Dementia in other diseases classified elsewhere, unspecified severity, without behavioral disturbance, psychotic disturbance, mood disturbance, and anxiety; Z66 Do not resuscitate; E03.9 Hypothyroidism, unspecified; K21.9 Gastro-esophageal reflux disease without esophagitis; F41.9 Anxiety disorder, unspecified; F32.9 Major depressive disorder, single episode, unspecified; R62.50 Unspecified lack of expected normal physiological development in childhood; R73.9 Hyperglycemia, unspecified; I12.9 Hypertensive chronic kidney disease with stage 1 through stage 4 chronic kidney disease, or unspecified chronic kidney disease; N18.9 Chronic kidney disease, unspecified; H54.0 Blindness, both eyes; Z93.3 Colostomy status
CPT/HCPCS: 36600; 70450; 71010; 76937; 80048; 80053; 81001; 82805; 82948; 83735; 84100; 85025; 87641; 94002; 94003; 94640; 94664; C9113; J1120; J1644; J1956; J2920; J2930; J7030; J7512; J7626; P9612

== ENCOUNTER → 2017-02-19 | Outpatient (CLI) | payer MEDICARE, OTHER ==
[~2017-02-19] MED LIST changes: +FLUT1INH INH; +LEVA500T20 PO; -NEBULIZER/ADULT1 KIT; +NOVOLOGP2 SQ; -PRED10 PO; +PRED5TAB PO; +SPIRCAP INH
[2017-02-19 09:43] LABS: BLOOD GAS BASE EXCESS 6.5 mmol/L (-2-2); BLOOD GAS CARBOXYHEMOGLOBIN 2.5 % (0-4); BLOOD GAS HCO3 31 mmol/L (22-26); BLOOD GAS O2 HGB SATURATION 91 % (90-100); BLOOD GAS OXYGEN CONTENT 16.9 Vol % (12.0-20.0); BLOOD GAS PCO2 49 mmHg (38-42); BLOOD GAS PO2 66 mmHg (61-120); BLOOD GAS TOTAL HGB 13.2 G/DL (12.0-16.0); CRITICAL VALUE NO; DRAW SITE LT RADIAL; FIO2 21 %; NUMBER OF ARTERIAL PUNCTURES 1; STAT NO; TEMP CORR TO 98.6; ULNAR PULSE PRESENT
--- NOTE | 2017-02-25 09:20 | RSPPFT ---
DATE OF PROCEDURE: 02/19/17 COMMENTS: Spirometry with FVC of 1.5, FEV1 of 1.4 and FEV1/FVC ratio at 97%. IMPRESSION: 1. Decreased flow rates. 2. No gross obstruction. 3. Possible airways restriction. 4. If clinically warranted, lung volumes may be helpful.
== END ==
LOC: HRSP 09:26
PROVIDERS: ATTEND Internal Medicine Sleep Medicine
DX: R06.09 Other forms of dyspnea (principal)
CPT/HCPCS: 36600; 82805; 94010; 94060